=== PATIENT | female | born 1955 | race Caucasian/White ===

== ENCOUNTER → 2018-02-03 08:42 | Outpatient (CLI) | payer BC, SELFPAY ==
[2018-02-03 09:45] LABS: Add Manual Diff / Slide Review NO; Eosinophils Percent Auto 1.3 % (2-4); Hematocrit 39.7 % (36-46); Hemoglobin 13.3 g/dL (12.0-16.0); Lymphocytes Percent Auto 24.5 % (25-40); Mean Corpuscular HGB Conc 33.5 % (30-36); Mean Corpuscular Hemoglobin 30.1 PG (26-34); Mean Corpuscular Volume 89.7 fL (80-100); Neutrophils Absolute Auto 4400 /uL (3000-5900); Neutrophils Percent Auto 67.2 % (50-75); Platelet Count 287 X10^3/uL (150-400); Red Blood Cell Count 4.42 X10^6/uL (4.0-5.2); Red Cell Distribution Width 11.8 % (11.6-14.8); White Blood Cell Count 6.5 X10^3/uL (4.5-11.0)
[2018-02-03 10:20] LABS: Alanine Aminotransferase 33 IU/L (9-52); Albumin 4.4 g/dL (3.5-5.0); Albumin Globulin Ratio 1.3 (1.0-2.8); Alkaline Phosphatase 78 U/L (38-126); Aspartate Aminotransferase 33 IU/L (14-36); BUN Creatinine Ratio 31.7 (6-22); Bilirubin Total 0.6 mg/dL (0.2-1.3); Calcium 9.2 mg/dL (8.4-10.2); Cholesterol 173 mg/dL (140-199); Estimated Glomerular Filt Rate > 60.0 mL/min (>60); Globulin 3.5 g/dL (1.7-4.1); Glucose 88 mg/dL (80-110); HDL Cholesterol 52 mg/dL (40-60); HEMOLYSIS < 15 (0-50); LDL Cholesterol Calculated 110 mg/dL (<100); Potassium 3.9 mmol/L (3.4-5.1); Sodium 142 mmol/L (137-145); Total Protein 7.9 g/dL (6.3-8.2); Triglycerides 53 mg/dL (35-150)
[2018-02-03 10:52] LABS: TSH w/ Reflex to FT4 1.41 uIU/mL (0.47-4.68)
== END ==
PROVIDERS: Family Provider Family Medicine; PCP Family Medicine; Visit Provider Family Medicine
DX: Z13.220 Encounter for screening for lipoid disorders (principal); Z00.00 Encounter for general adult medical examination without abnormal findings
CPT/HCPCS: 36415; 80053; 80061; 84443; 85025

== ENCOUNTER → 2018-07-18 07:04 | Outpatient (CLI) | payer BC, SELFPAY | PROVIDERS: PCP Family Medicine; Visit Provider Family Medicine | DX: K21.9 Gastro-esophageal reflux disease without esophagitis (principal) | CPT/HCPCS: 83013 ==

== ENCOUNTER → 2018-12-07 09:10 | Outpatient (CLI) | payer BC, SELFPAY ==
--- NOTE | 2018-12-07 | DI.MG.S_ITS ---
BILATERAL DIGITAL SCREENING MAMMOGRAM 3D/2D WITH CAD: 12/07/2018 CLINICAL: Routine screening. Family history of breast cancer. Comparison is made to exams dated: 12/01/2017 mammogram, 11/18/2016 mammogram, 11/14/2015 mammogram, 10/30/2014 mammogram, and 10/29/2013 mammogram - [facility]. The tissue of both breasts is extremely dense, which lowers the sensitivity of mammography. Current study was also evaluated with a Computer Aided Detection (CAD) system. No significant masses, calcifications, or other findings are seen in either breast. There has been no significant interval change. IMPRESSION: NEGATIVE There is no mammographic evidence of malignancy. A 1 year screening mammogram is recommended. This exam was interpreted at Station ID: [id number]. NOTE: For mammograms, a report in lay terms will be sent to the patient. Approximately 15% of breast malignancies will not be visualized mammographically. In the management of a palpable breast mass, a negative mammogram must not discourage biopsy of a clinically suspicious lesion. Electronically Signed By: Russell agee/shaneka:12/07/2018 16:29:17 copy to: Chrissy Clements letter sent: Normal Exam ACR BI-RADS Category 1: Negative [id number]
== END ==
PROVIDERS: PCP Family Medicine; Visit Provider Family Medicine
DX: Z12.31 Encounter for screening mammogram for malignant neoplasm of breast (principal); Z80.3 Family history of malignant neoplasm of breast
CPT/HCPCS: 77063; 77067

== ENCOUNTER → 2019-06-19 15:49 | Outpatient (CLI) | payer BC, SELFPAY | PROVIDERS: PCP Family Medicine | DX: Z23 Encounter for immunization (principal) | CPT/HCPCS: 90471; 90686 ==

== ENCOUNTER 2019-07-24 09:43 | Day surgery (SDC) | payer BC, SELFPAY ==
[2019-07-24 10:04] VITALS: BP 134/86; PULSE 78; RESP 14; TEMP 36.2; O2SAT 100; BMI 23.8
[2019-07-24] MEDS: SODIUM CHLORIDE 0.9% 1,000 ML 200 ML IV (10:20)
--- NOTE | 2019-07-24 10:53 | PM.HP.1 ---
History of Present Illness History of Present Illness Date Patient Seen: 07/24/19 Time Patient Seen: 10:53 Chief complaint: [id number] Narrative: The patient is woman here for screening colonoscopy. No history of polyps. Last exam was over 10 years ago. Patient History Medical History Acid reflux (Resolved) Arthritis (Chronic) CTS (carpal tunnel syndrome) (Chronic) Lumbar spine pain (Chronic) Right lumbar radiculopathy (Chronic) Surgical History Status post arthroscopy (Resolved 03/2015) Status post dilation and curettage (Resolved 10/2011) Status post laminectomy (Resolved 2006) Status post laminectomy (Resolved 11/2013) Family & Social History Social History: household members spouse Tobacco & Substance use: Smoking Status Never smoker Meds Home Medications and Allergies Home Medications Medication Instructions Recorded Confirmed Type ASPIRIN (#ASPIR 81) 81 mg PO EVERY OTHER DAY #0 09/30/11 07/24/19 History CA PANTOTHENATE/FOLIC ACID/VIT 1 tab PO Q DAY #0 09/30/11 07/24/19 History (MULTIVITAMIN) [VITAMIN C] 500 mg PO Q DAY #0 10/13/11 07/24/19 History VITAMIN E (#E-400) 400 iu PO Q DAY #0 10/29/11 07/24/19 History Dimethyl Sulfone (#MSM) 2,000 mg PO BID #0 12/25/12 07/24/19 History calcium carb,cit 300 mg-D3 200 1 tab PO DAILY tab 02/16/18 07/24/19 History [id number] 13.5 mg tablet vitamin B complex 1 tab PO DAILY 02/16/18 07/24/19 History celecoxib 200 mg capsule 200 mg PO PRN PRN #90 cap 05/24/18 07/24/19 Rx omeprazole 20 mg capsule,delayed 20 mg PO DAILY #90 cap 08/16/18 07/24/19 Rx release medroxyprogesterone 2.5 mg tablet 2.5 mg PO QDAY #90 tab 04/03/19 07/24/19 Rx fluticasone propionate 50 1 spray NASAL DAILY 06/21/19 07/24/19 History mcg/actuation nasal spray,suspension estradiol 1 vaginalrin VAGINAL [id number] #1 07/24/19 Rx each Allergies Allergy/AdvReac Type Severity Reaction Status Date / Time No Known Drug Allergies Allergy Verified 06/21/19 15:13 Review of Systems Review of Systems ROS Unobtainable: All systems reviewed & are unremarkable except as noted in HPI and below Exam Vital Signs (past 8 hours): - 07/24/19 10:04 Temperature 97.1 F L Pulse Rate 78 Respiratory Rate 14 Blood Pressure 134/86 Pulse Oximetry 100 Oxygen Delivery Method Room Air Narrative Exam Narrative: Pleasant cooperative patient no apparent distress. Lungs are clear to auscultation. No rales or rhonchi. Heart regular rate and rhythm no murmur gallop. Abdomen is soft nontender without mass. No obvious hernias. Patient is alert and oriented x3. Assessment & Plan Assessment & Plan narrative: The patient for a screening colonoscopy. I have discussed the procedure with them. Risks of bleeding, perforation which would necessitate major operation, failure to find remove all lesions, the potential tattoo were all discussed. All questions were answered. They wished to proceed. Patient does not desire sedation. She is willing to accept it however if the procedure becomes too uncomfortable for me to proceed. She will tell me if she reaches that point.
--- NOTE | 2019-07-24 10:56 | PM.PREOP ---
Pre-operative Note Interval Note History & Physical reviewed/Exam performed by Physician: Yes Changes to H&P: No ASA Class (for procedural sedation): I
--- NOTE | 2019-07-24 10:56 | SUR.OPER ---
PATIENT REQUESTED NO SEDATION
--- NOTE | 2019-07-24 11:11 | SUR.OPER ---
TO;ERATED WELL
--- NOTE | 2019-07-24 11:24 | PM.OP.ENDO ---
Operative Date/Time/Diagnoses Date of procedure: 07/24/19 Time of procedure: 11:24 Pre-op diagnosis: Screening exam. Last exam 10 years ago. Post-op diagnosis: same (Internal hemorrhoids) Procedure & Clinicians Study performed: Colonoscopy Same procedure as scheduled: Yes Indications: Screening Surgeon: Jack Joseph Procedure Notes SCOAP/Timeout: Performed Procedure in detail: The patient was placed in the left lateral decubitus position and underwent IV sedation directed by the surgeon consisting of fentanyl and Versed. Digital exam was[]. The scope was inserted and advanced through the rectum into the sigmoid, descending, transverse colon to the hepatic flexure. At this point the steering mechanism on the scope snapped and the scope had to be withdrawn as I could not hear it properly to complete the exam. There was no loss of any part of the instrument to the patient. The steering mechanism is all internal in the scope. The scope was withdrawn. The situation was explained to the patient and we obtained another scope. The scope was reinserted fairly quickly to that point. A stiffener was then required in order to make our way around the hepatic flexure and into the cecum. The cecum was identified by the ileocecal valve and the appendiceal opening. The scope was gradually brought out. No Polyps were found. The scope ultimately was retroflexed in the rectum. The appearance was remarkable for internal hemorrhoids without ulceration. The scope was removed and the patient tolerated the procedure well. The prep was very good. Scope withdrawal time: 5 minutes Sedation minutes: 0 (Patient declined sedation) Findings: internal hemorrhoids Specimen(s): none sent Complications: none Post-procedure Recommendations: Colonscopy in 10 years Follow up: as needed Disposition: same day surgery
[2019-07-24 11:25] VITALS: BP 122/79; PULSE 80; RESP 16; TEMP 36.3; O2SAT 100
== END 2019-07-24 11:47 | disposition home or self-care (01) ==
PROVIDERS: PCP Family Medicine; Visit Provider Specialist
PROC: 0DJD8ZZ Inspection of Lower Intestinal Tract, Via Natural or Artificial Opening Endoscopic (ICD-10-PCS; CPT 45378; principal; 2019-07-24 10:45)
DX: Z12.11 Encounter for screening for malignant neoplasm of colon (principal)
CPT/HCPCS: 45378

== ENCOUNTER 2019-07-24 17:23 | Emergency (ER) | payer BC, SELFPAY ==
[2019-07-24 17:41] VITALS: BP 140/91; PULSE 81; RESP 16; TEMP 36.2; O2SAT 98; BMI 24.3
[2019-07-24 18:04] LABS: Bacteria Urine None Seen
[2019-07-24 18:25] LABS: RBC Urine 5-10/HPF (0-5/HPF); Squamous Epithelial Cell Urine 1-5 /HPF (0-5/HPF); WBC Urine 1-5/HPF (0-5/HPF)
[2019-07-24 18:26] LABS: Calcium Oxalate Crystals Urine Few; Culture Indicated Urine Cult Not Indicated; Mucus Urine 1+ (Negative)
[2019-07-24 18:42] LABS: Add Manual Diff / Slide Review NO; Basophils Absolute Auto 100 /uL (0-100); Basophils Percent Auto 0.6 % (0-2); Eosinophils Absolute Auto 0 /uL (0-450); Eosinophils Percent Auto 0.5 % (2-4); Hematocrit 39.6 % (36-46); Hemoglobin 13.3 g/dL (12.0-16.0); Lymphocytes Absolute Auto 1000 /uL (1100-4500); Lymphocytes Percent Auto 10.7 % (25-40); Mean Corpuscular HGB Conc 33.6 % (30-36); Mean Corpuscular Hemoglobin 30.4 PG (26-34); Mean Corpuscular Volume 90.4 fL (80-100); Monocytes Absolute Auto 500 /uL (0-900); Monocytes Percent Auto 4.9 % (3-14); Neutrophils Absolute Auto 7900 /uL (1500-7000); Neutrophils Percent Auto 83.3 % (50-75); Platelet Count 257 X10^3/uL (150-400); Red Blood Cell Count 4.38 X10^6/uL (4.0-5.2); Red Cell Distribution Width 12.1 % (11.6-14.8); White Blood Cell Count 9.5 X10^3/uL (4.5-11.0)
--- NOTE | 2019-07-24 18:43 | ED_ITS ---
HPI - Abdominal Pain <Teresa Busby PA-C - Last Filed: 07/24/19 21:15> General Chief Complaint: Abdominal Pain Stated Complaint: lt kidney pain Time Seen by Provider: 07/24/19 18:36 Source: patient Mode of arrival: Ambulatory Limitations: no limitations History of Present Illness HPI narrative: This 64-year-old female comes to ED secondary to left flank pain. She states that she initially had some left flank pain a couple of days ago that resolved on its own and was not severe. She had a colonoscopy this morning with no problems, went out to eat after. About 2.5 hours ago, she had abrupt onset of flank pain, which seems to radiate to a wrap around her back. She denies any exacerbating or alleviating features for pain, states it waxes and wanes on its own, severe when it is bad. She denies any nausea or vomiting. She denies any fever, chills, sweats. She denies any urinary symptoms. she denies any recent bowel habit changes aside from colonoscopy prep induced, no blood in the stools. She denies any chest pain or dyspnea. She denies any rash. No known exposures or recent illness. No new or changed medications. Related Data Home Medications Medication Instructions Recorded Confirmed ASPIRIN (#ASPIR 81) 81 mg PO EVERY OTHER DAY #0 09/30/11 07/24/19 CA PANTOTHENATE/FOLIC ACID/VIT 1 tab PO Q DAY #0 09/30/11 07/24/19 (MULTIVITAMIN) [VITAMIN C] 500 mg PO Q DAY #0 10/13/11 07/24/19 VITAMIN E (#E-400) 400 iu PO Q DAY #0 10/29/11 07/24/19 Dimethyl Sulfone (#MSM) 2,000 mg PO BID #0 12/25/12 07/24/19 calcium carb,cit 300 mg-D3 200 1 tab PO DAILY tab 02/16/18 07/24/19 [id number] 13.5 mg tablet vitamin B complex 1 tab PO DAILY 02/16/18 07/24/19 fluticasone propionate 50 1 spray NASAL DAILY 06/21/19 07/24/19 mcg/actuation nasal spray,suspension Previous Rx's Medication Instructions Recorded celecoxib 200 mg capsule 200 mg PO PRN PRN #90 cap 05/24/18 omeprazole 20 mg capsule,delayed 20 mg PO DAILY #90 cap 08/16/18 release medroxyprogesterone 2.5 mg tablet 2.5 mg PO QDAY #90 tab 04/03/19 estradiol 1 vaginalrin VAGINAL [id number] #1 07/24/19 each oxycodone-acetaminophen 1 tab PO Q4-6H PRN #8 tab 07/24/19 tamsulosin 0.4 mg PO BEDTIME #5 cap 07/24/19 Allergies Allergy/AdvReac Type Severity Reaction Status Date / Time No Known Drug Allergies Allergy Verified 06/21/19 15:13 Review of Systems <Teresa Busby PA-C - Last Filed: 07/24/19 21:15> Review of Systems ROS Unobtainable: All systems reviewed & are unremarkable except as noted in HPI and below Patient History <Teresa Busby PA-C - Last Filed: 07/24/19 21:15> Medical History Acid reflux (Resolved) Arthritis (Chronic) CTS (carpal tunnel syndrome) (Chronic) Lumbar spine pain (Chronic) Right lumbar radiculopathy (Chronic) Surgical History Status post arthroscopy (Resolved 03/2015) Status post dilation and curettage (Resolved 10/2011) Status post laminectomy (Resolved 2006) Status post laminectomy (Resolved 11/2013) Social History household members: spouse Smoking Status: Never smoker Substance Use Type: does not use Exam <Teresa Busby PA-C - Last Filed: 07/24/19 21:15> Narrative Exam Narrative: GENERAL APPEARANCE: Patient sitting comfortably, in no distress. HEENT: PERRL, EOMI, no scleral icterus, normal oropharynx NECK: Supple, no masses LUNGS: Clear to auscultation bilaterally. HEART: Rate and rhythm regular, normal S1 and S2, no S3 or S4. ABDOMEN: Soft, nondistended, bowel sounds present x 4 quadrants, no masses palpable, no hepatosplenomegaly. exquisite left CVAT, moderate left lateral upper quadrant tenderness. no guarding or rebound. No tenderness elsewhere. EXTREMITIES: No edema, no calf tenderness DERMATOLOGIC: No jaundice or exanthem NEUROLOGIC: Alert and oriented with normal speech and coordination Initial Vital Signs Initial Vital Signs: Vital Signs Temperature 97.2 F L 07/24/19 17:41 Pulse Rate 81 07/24/19 17:41 Respiratory Rate 16 07/24/19 17:41 Blood Pressure 140/91 H 07/24/19 17:41 Pulse Oximetry 98 07/24/19 17:41 <Vu Vale MD - Last Filed: 07/25/19 04:31> Initial Vital Signs Initial Vital Signs: Vital Signs Temperature 97.2 F L 07/24/19 17:41 Pulse Rate 81 07/24/19 17:41 Respiratory Rate 16 07/24/19 17:41 Blood Pressure 140/91 H 07/24/19 17:41 Pulse Oximetry 98 07/24/19 17:41 Course <Teresa Busby PA-C - Last Filed: 07/24/19 21:15> Course Additional Information: Patient stated pain was not particularly severe while here and might take Tylenol at home. She does take Percocet as needed for arthritis pain and was given a prescription for a little bit of this as her home prescription is . She will take this as needed as well as her Celebrex and Flomax and full follow up with her PCP this week. She agreed to return if any acutely worsening symptoms in the interim Orders Ordered: ED Orders 07/24/19 17:47 Urine Microscopic Stat 07/24/19 18:34 Complete Blood Count AUTO DIFF Stat Comprehensive Metabolic Panel Stat Lipase Stat Partial Thromboplastin Time Stat Prothrombin Time INR Stat 07/24/19 18:55 CT kidney ureter bladder (KUB) Stat Vital Signs Vital signs: Vital Signs - 8 hr 07/24/19 20:35 Pulse Rate 78 Respiratory Rate 16 Blood Pressure 122/72 Pulse Oximetry 97 <Vu Vale MD - Last Filed: 07/25/19 04:31> Orders Ordered: ED Orders 07/24/19 17:47 Urine Microscopic Stat 07/24/19 18:34 Complete Blood Count AUTO DIFF Stat Comprehensive Metabolic Panel Stat Lipase Stat Partial Thromboplastin Time Stat Prothrombin Time INR Stat 07/24/19 18:55 CT kidney ureter bladder (KUB) Stat Vital Signs Vital signs: Vital Signs - 8 hr 07/24/19 20:35 Pulse Rate 78 Respiratory Rate 16 Blood Pressure 122/72 Pulse Oximetry 97 MDM - Abdominal Pain <Teresa Busby PA-C - Last Filed: 07/24/19 21:15> Lab Data Attestation: I reviewed the patient's lab results. Result diagrams: 07/24/19 18:34 07/24/19 18:34 Labs: Lab Results 07/24/19 07/24/19 07/24/19 Range/Units 17:47 18:34 18:34 WBC 9.5 (4.5-11.0) X10^3/uL RBC 4.38 (4.0-5.2) X10^6/uL Hgb 13.3 (12.0-16.0) g/dL Hct 39.6 (36-46) % MCV 90.4 (80-100) fL MCH 30.4 (26-34) PG MCHC 33.6 (30-36) % RDW 12.1 (11.6-14.8) % Plt Count 257 (150-400) X10^3/uL Neut % (Auto) 83.3 H (50-75) % Lymph % (Auto) 10.7 L (25-40) % [place] % (Auto) 4.9 (3-14) % Eos % (Auto) 0.5 L (2-4) % Baso % (Auto) 0.6 (0-2) % Neut # (Auto) 7900 H (6108-4071) /uL Lymph # (Auto) 1000 L (2358-4886) /uL [place] # (Auto) 500 (0-900) /uL Eos # (Auto) 0 (0-450) /uL Baso # (Auto) 100 (0-100) /uL PT 11.5 (10.1-12.7) SECONDS INR 1.0 (0.9-1.3) APTT 28 (26.4-36.2) SECONDS Sodium (137-145) mmol/L Potassium (3.4-5.1) mmol/L Chloride (98-107) mmol/L Carbon Dioxide (22-32) mmol/L BUN (7-17) mg/dL Creatinine (0.52-1.04) mg/dL Estimated GFR (>60) mL/min BUN/Creatinine Ratio (6-22) Glucose (80-110) mg/dL Calcium (8.4-10.2) mg/dL Total Bilirubin (0.2-1.3) mg/dL AST (14-36) IU/L ALT (<35) IU/L Alkaline Phosphatase (38-126) U/L Total Protein (6.3-8.2) g/dL Albumin (3.5-5.0) g/dL Globulin (1.7-4.1) g/dL Albumin/Globulin Ratio (1.0-2.8) Lipase (23-300) U/L Urine RBC 5-10/hpf H (0-5/HPF) Urine WBC 1-5/hpf (0-5/HPF) Ur Squamous Epith Cells 1-5 /hpf (0-5/HPF) Calcium Oxalate Crystal Few H Urine Bacteria None seen (None) Urine Mucus 1+ H (Negative) Ur Culture Indicated? Cult not indicated 07/24/19 Range/Units 18:34 WBC (4.5-11.0) X10^3/uL RBC (4.0-5.2) X10^6/uL Hgb (12.0-16.0) g/dL Hct (36-46) % MCV (80-100) fL MCH (26-34) PG MCHC (30-36) % RDW (11.6-14.8) % Plt Count (150-400) X10^3/uL Neut % (Auto) (50-75) % Lymph % (Auto) (25-40) % [place] % (Auto) (3-14) % Eos % (Auto) (2-4) % Baso % (Auto) (0-2) % Neut # (Auto) (9633-8019) /uL Lymph # (Auto) (1762-9611) /uL [place] # (Auto) (0-900) /uL Eos # (Auto) (0-450) /uL Baso # (Auto) (0-100) /uL PT (10.1-12.7) SECONDS INR (0.9-1.3) APTT (26.4-36.2) SECONDS Sodium 140 (137-145) mmol/L Potassium 3.7 (3.4-5.1) mmol/L Chloride 105 (98-107) mmol/L Carbon Dioxide 26 (22-32) mmol/L BUN 21 H (7-17) mg/dL Creatinine 0.80 (0.52-1.04) mg/dL Estimated GFR > 60.0 (>60) mL/min BUN/Creatinine Ratio 26.3 H (6-22) Glucose 108 (80-110) mg/dL Calcium 9.4 (8.4-10.2) mg/dL Total Bilirubin 0.8 (0.2-1.3) mg/dL AST 32 (14-36) IU/L ALT 22 (<35) IU/L Alkaline Phosphatase 69 (38-126) U/L Total Protein 7.9 (6.3-8.2) g/dL Albumin 4.7 (3.5-5.0) g/dL Globulin 3.2 (1.7-4.1) g/dL Albumin/Globulin Ratio 1.5 (1.0-2.8) Lipase 60 (23-300) U/L Urine RBC (0-5/HPF) Urine WBC (0-5/HPF) Ur Squamous Epith Cells (0-5/HPF) Calcium Oxalate Crystal Urine Bacteria (None) Urine Mucus (Negative) Ur Culture Indicated? Point of care testing: Urine Dip Bedside Urine Glucose Negative Bedside Urine Bilirubin - Negative Bedside Urine Ketone - Negative Urine Specific [place] 1.030 Bedside Urine Occult Blood + Bedside Urine pH 6.0 Bedside Urine Protein +/- 15 Bedside Urine Urobilinogen - Negative Bedside Urine Nitrite - Negative Bedside Urine Leukocytes - Negative Esterase <Vu Vale MD - Last Filed: 07/25/19 04:31> Lab Data Labs: Lab Results 07/24/19 07/24/19 07/24/19 Range/Units 17:47 18:34 18:34 WBC 9.5 (4.5-11.0) X10^3/uL RBC 4.38 (4.0-5.2) X10^6/uL Hgb 13.3 (12.0-16.0) g/dL Hct 39.6 (36-46) % MCV 90.4 (80-100) fL MCH 30.4 (26-34) PG MCHC 33.6 (30-36) % RDW 12.1 (11.6-14.8) % Plt Count 257 (150-400) X10^3/uL Neut % (Auto) 83.3 H (50-75) % Lymph % (Auto) 10.7 L (25-40) % [place] % (Auto) 4.9 (3-14) % Eos % (Auto) 0.5 L (2-4) % Baso % (Auto) 0.6 (0-2) % Neut # (Auto) 7900 H (6732-6486) /uL Lymph # (Auto) 1000 L (9332-4692) /uL [place] # (Auto) 500 (0-900) /uL Eos # (Auto) 0 (0-450) /uL Baso # (Auto) 100 (0-100) /uL PT 11.5 (10.1-12.7) SECONDS INR 1.0 (0.9-1.3) APTT 28 (26.4-36.2) SECONDS Sodium (137-145) mmol/L Potassium (3.4-5.1) mmol/L Chloride (98-107) mmol/L Carbon Dioxide (22-32) mmol/L BUN (7-17) mg/dL Creatinine (0.52-1.04) mg/dL Estimated GFR (>60) mL/min BUN/Creatinine Ratio (6-22) Glucose (80-110) mg/dL Calcium (8.4-10.2) mg/dL Total Bilirubin (0.2-1.3) mg/dL AST (14-36) IU/L ALT (<35) IU/L Alkaline Phosphatase (38-126) U/L Total Protein (6.3-8.2) g/dL Albumin (3.5-5.0) g/dL Globulin (1.7-4.1) g/dL Albumin/Globulin Ratio (1.0-2.8) Lipase (23-300) U/L Urine RBC 5-10/hpf H (0-5/HPF) Urine WBC 1-5/hpf (0-5/HPF) Ur Squamous Epith Cells 1-5 /hpf (0-5/HPF) Calcium Oxalate Crystal Few H Urine Bacteria None seen (None) Urine Mucus 1+ H (Negative) Ur Culture Indicated? Cult not indicated 07/24/19 Range/Units 18:34 WBC (4.5-11.0) X10^3/uL RBC (4.0-5.2) X10^6/uL Hgb (12.0-16.0) g/dL Hct (36-46) % MCV (80-100) fL MCH (26-34) PG MCHC (30-36) % RDW (11.6-14.8) % Plt Count (150-400) X10^3/uL Neut % (Auto) (50-75) % Lymph % (Auto) (25-40) % [place] % (Auto) (3-14) % Eos % (Auto) (2-4) % Baso % (Auto) (0-2) % Neut # (Auto) (8140-6726) /uL Lymph # (Auto) (6947-2992) /uL [place] # (Auto) (0-900) /uL Eos # (Auto) (0-450) /uL Baso # (Auto) (0-100) /uL PT (10.1-12.7) SECONDS INR (0.9-1.3) APTT (26.4-36.2) SECONDS Sodium 140 (137-145) mmol/L Potassium 3.7 (3.4-5.1) mmol/L Chloride 105 (98-107) mmol/L Carbon Dioxide 26 (22-32) mmol/L BUN 21 H (7-17) mg/dL Creatinine 0.80 (0.52-1.04) mg/dL Estimated GFR > 60.0 (>60) mL/min BUN/Creatinine Ratio 26.3 H (6-22) Glucose 108 (80-110) mg/dL Calcium 9.4 (8.4-10.2) mg/dL Total Bilirubin 0.8 (0.2-1.3) mg/dL AST 32 (14-36) IU/L ALT 22 (<35) IU/L Alkaline Phosphatase 69 (38-126) U/L Total Protein 7.9 (6.3-8.2) g/dL Albumin 4.7 (3.5-5.0) g/dL Globulin 3.2 (1.7-4.1) g/dL Albumin/Globulin Ratio 1.5 (1.0-2.8) Lipase 60 (23-300) U/L Urine RBC (0-5/HPF) Urine WBC (0-5/HPF) Ur Squamous Epith Cells (0-5/HPF) Calcium Oxalate Crystal Urine Bacteria (None) Urine Mucus (Negative) Ur Culture Indicated? Point of care testing: Urine Dip Bedside Urine Glucose Negative Bedside Urine Bilirubin - Negative Bedside Urine Ketone - Negative Urine Specific [place] 1.030 Bedside Urine Occult Blood + Bedside Urine pH 6.0 Bedside Urine Protein +/- 15 Bedside Urine Urobilinogen - Negative Bedside Urine Nitrite - Negative Bedside Urine Leukocytes - Negative Esterase Discharge Plan Departure Patient Disposition: Home Clinical Impression: Kidney stone on left side Discharge Date/Time: 07/24/19 20:36 Activity Restrictions/Additional Instructions: Please take your Celebrex tonight when you get home and continue once daily until this kidney stone passes. Also start the Flomax (tamsulosin) this evening and take once daily. You can use the Percocet as needed to help with the pain, remember not to drive as it can make you sleepy. Please see your PCP for rechec k in the next couple of days as you may need repeat testing or referral if the stone is not passing or you are not feeling better. As we talked about, you should return to the ED if you have any acutely worsening symptoms or new symptoms such as fever, inability to urinate, or vomiting and inability to keep down your medicines. Prescriptions: New tamsulosin 0.4 mg capsule 0.4 mg PO BEDTIME Qty: 5 RF: 0 oxycodone-acetaminophen 5-325 mg tablet 1 tab PO Q4-6H PRN (Reason: acute kidney stone pain) Qty: 8 RF: 0 No Action CA PANTOTHENATE/FOLIC ACID/VIT (MULTIVITAMIN) 1 tab PO Q DAY Qty: 0 RF: 0 ASPIRIN (#ASPIR 81) 81 mg PO EVERY OTHER DAY Qty: 0 RF: 0 [VITAMIN C] 500 mg PO Q DAY Qty: 0 RF: 0 VITAMIN E (#E-400) 400 iu PO Q DAY Qty: 0 RF: 0 Dimethyl Sulfone (#MSM) 2,000 mg PO BID Qty: 0 RF: 0 medroxyprogesterone 2.5 mg tablet 2.5 mg PO QDAY Qty: 90 RF: 3 estradiol [Estring] 2 mg (7.5 mcg /24 hour) ring 1 vaginalrin vaginal [id number] Qty: 1 RF: 3 celecoxib [Celebrex] 200 mg capsule 200 mg PO PRN PRN (Reason: pain) Qty: 90 RF: 3 fluticasone propionate 50 mcg/actuation spray,suspension 1 spray NASAL DAILY RF: 0 vitamin B complex [B Complex-Vitamin B12] tablet 1 tab PO DAILY RF: 0 calcium crb,mgx-[id number]-genis [Citracal + Bone Density] 300-200-13.5 mg-unit-mg tablet 1 tab PO DAILY RF: 0 omeprazole 20 mg capsule,delayed release(DR/EC) 20 mg PO DAILY Qty: 90 RF: 3 Referrals: Tory Short DO [Primary Care Provider] -
[2019-07-24 18:49] LABS: Prothrombin Time 11.5 SECONDS (10.1-12.7)
[2019-07-24 18:52] LABS: PTT Partial Thromboplastin Tim 28 SECONDS (26.4-36.2)
[2019-07-24 18:55] LABS: Alanine Aminotransferase 22 IU/L (<35); Albumin 4.7 g/dL (3.5-5.0); Albumin Globulin Ratio 1.5 (1.0-2.8); Alkaline Phosphatase 69 U/L (38-126); Aspartate Aminotransferase 32 IU/L (14-36); BUN Creatinine Ratio 26.3 (6-22); Bilirubin Total 0.8 mg/dL (0.2-1.3); Blood Urea Nitrogen 21 mg/dL (7-17); Calcium 9.4 mg/dL (8.4-10.2); Carbon Dioxide 26 mmol/L (22-32); Chloride 105 mmol/L (98-107); Estimated Glomerular Filt Rate > 60.0 mL/min (>60); Globulin 3.2 g/dL (1.7-4.1); Glucose 108 mg/dL (80-110); HEMOLYSIS < 15 (0-50); Lipase 60 U/L (23-300); Potassium 3.7 mmol/L (3.4-5.1); Sodium 140 mmol/L (137-145); Total Protein 7.9 g/dL (6.3-8.2)
--- NOTE | 2019-07-24 18:55 | DI.CT.S_ITS ---
PROCEDURE: CT KIDNEY URETER BLADDER (KUB) INDICATIONS: L. flank pain TECHNIQUE: Noncontrast 5 mm thick sections acquired from the diaphragms to the symphysis. 5 mm thick coronal and sagittal reformats were then performed. For radiation dose reduction, the following was used: automated exposure control, adjustment of mA and/or kV according to patient size. COMPARISON: None. FINDINGS: Image quality: Excellent. Lung bases: Lung bases are clear. Heart size is normal. Urinary system: Both kidneys are normal in size. A 5 mm stone is noted in the proximal left ureter causing moderate left-sided hydro-nephrosis. No right-sided renal stones or hydronephrosis. Bladder wall thickness is normal; no calcified bladder stones. Other solid organs: Liver is normal in size. Gallbladder contains multiple small gallstones.. Pancreas is normal in contours. Spleen is normal in size. No adrenal nodules. Peritoneum and bowel: Unenhanced bowel loops demonstrate normal wall thickness and caliber. No free fluid or air. The visualized appendix is normal. Nodes and vessels: No retroperitoneal or mesenteric adenopathy by size criteria. Aorta and inferior vena cava are normal in caliber. Abdominal wall: No ventral hernias. Pelvis: No free pelvic fluid. No inguinal hernias or adenopathy. Presence of pessary ring noted in the lower pelvis. Bones: No suspicious bony lesions. No vertebral body compression fractures. Spine degenerative disc disease and facet arthropathy. IMPRESSION: 1. 5 mm stone proximal left ureter causing moderate left-sided hydronephrosis. 2. Cholelithiasis. Dictated by: Jeanette Beal MD, PhD on 07/24/2019 at 20:04 Approved by: Jeanette Beal MD, PhD on 07/24/2019 at 20:08
[2019-07-24 19:07] VITALS: BP 121/75; PULSE 73; RESP 14; O2SAT 99
[2019-07-24 19:45] VITALS: BP 124/81; PULSE 78; RESP 12; O2SAT 98
[2019-07-24 20:30] VITALS: BP 124/74; PULSE 77; O2SAT 97
[2019-07-24 20:35] VITALS: BP 122/72; PULSE 78; RESP 16; O2SAT 97
== END 2019-07-24 20:36 | disposition home or self-care (01) ==
PROVIDERS: Emergency Medicine; Emergency Provider Internal Medicine; Family Provider Family Medicine; PCP Family Medicine
DX: N20.0 Calculus of kidney (principal)
CPT/HCPCS: 36415; 74176; 80053; 81003; 81015; 83690; 85025; 85610; 85730; 99283; 99284

== ENCOUNTER → 2019-07-30 09:32 | Outpatient (CLI) | payer BC, SELFPAY ==
--- NOTE | 2019-07-30 09:33 | DI.US.S_ITS ---
PROCEDURE: US RENAL COMPLETE INDICATIONS: KIDNEY STONE, HYDRONEPHROSIS TECHNIQUE: Real-time scanning was performed of the kidneys and bladder, with image documentation. COMPARISON: [facility], CT, CT KIDNEY URETER BLADDER (KUB), 07/24/2019, 19:34. FINDINGS: Kidneys: Kidneys are normal in size. Right kidney measures 11.2 cm long; left kidney measures 12.1 cm long. Right renal cortical thickness is 1.6 cm; left renal cortical thickness is 1.6 cm. Renal cortical echotexture is normal. No hydronephrosis or nephrolithiasis. No suspicious solid mass lesions. Bladder: Pre-void bladder volume is 833 mL. Post-void residual is 0 mL. Pre-void images demonstrate no intraluminal masses or stones. On pre-void images, bilateral ureteral jets are noted with color Doppler interrogation. (Of note, ureteral jets may not be detectable in up to 25% of cases due to insufficient differences in specific gravity between ureteral and bladder urine). Miscellaneous: No free pelvic fluid. IMPRESSION: Resolved left hydronephrosis. Dictated by: Marc Jolley [facility] Interpreted: Milad Lynch MD on 07/30/2019 at 10:27 Approved by: Milad Lynch M.D. on 07/30/2019 at 12:17
== END ==
PROVIDERS: PCP Family Medicine; Visit Provider Family Medicine
DX: N13.2 Hydronephrosis with renal and ureteral calculous obstruction (principal)
CPT/HCPCS: 76770

== ENCOUNTER 2019-11-27 08:56 | Day surgery (SDC) | payer BC, SELFPAY ==
[2019-11-27 09:56] VITALS: BP 137/81; PULSE 84; RESP 17; TEMP 36.6; O2SAT 99; BMI 24.3
[2019-11-27] MEDS: PROPARACAINE 0.5% OPHTH SOL 2 DROPS EYE-OP (10:01)
[2019-11-27] MEDS: CATARACT EYE COMPOUND (10 DROPS/SYRINGE) 3 DROPS EYE-OP (10:02)
--- NOTE | 2019-11-27 11:12 | PM.PREOP ---
Pre-operative Note Interval Note History & Physical reviewed/Exam performed by Physician: Yes Changes to H&P: No
--- NOTE | 2019-11-27 11:12 | PM.OP.1 ---
Operative Date/Time/Diagnoses Pre-op diagnosis: Nuclear Cataract Left eye Post-op diagnosis: same Procedure & Clinicians Same procedure as scheduled: Yes Surgeon: Petey Crooks Anesthesia Type: MAC +/- and Sedation Operative Notes Procedure in detail: Patient brought to the operating suite. Tetracaine drops placed in the left eye. The vertical and horizontal meridiands were marked with marking pen. Patient was prepped and draped in sterile manner. Wire lid speculum was placed in the eye. The 110 degree meridian was marked with marking instrument. Betadine drops were placed on the eye. This was irrigated. Lidocaine jelly was placed on the eye. A paracentesis port was created with a side-port blade. 0.1 mL 1% preservative free lidocaine was injected into the anterior chamber. The anterior chamber was deepened with viscoelastic. 2.6 mm keratome was used to create a temporal clear corneal incision. Cystotome and Utrata forceps were used to create continuous tear capsulorrhexis. Balanced salt solution was used to hydro dissect the nucleus. The phacoemulsification handpiece was inserted and the nucleus was removed using the stop and chop technique. The irrigation aspiration handpiece was inserted and the remaining cortex was removed. Anterior chamber was deepened with viscoelastic. An Lloyd [id number] intraocular lens with a power of 20.5 was injected into the capsular bag. Irrigation aspiration handpiece was inserted and the remaining viscoelastic was removed. The lens was rotated to the 110 degree meridian. Incision was hydrated with balanced salt solution and found to be leak free with pressure with Weck-Hanane sponges. 0.1 mL Vigamox injected anterior chamber. 0.3 mL Kenalog 10 mg was injected subconjunctivally. Lid speculum was removed. The patient left the operating room in excellent condition. Complications: none Post-operative Condition: stable Disposition: same day surgery
[2019-11-27] MEDS: PHENYLEPHRINE/LIDOCAINE VIAL (OR) 0.2 ML EYE-OP (11:32)
[2019-11-27] MEDS: MOXIFLOXACIN INJ 5 MG/ML VIAL EYE-OP (11:32)
[2019-11-27] MEDS: LIDOCAINE JELLY 2% 5 ML 1 APPLIC TOP (11:33)
[2019-11-27] MEDS: TRIAMCINOLONE 50 MG/5 ML VIAL INJ (11:33)
[2019-11-27] MEDS: TETRACAINE 0.5% OPHTH DROPS 4 ML 2 DROPS EYE-OP (11:33)
[2019-11-27] MEDS: CHONDROIDTIN/SOD HYALURONATE 1.05 ML SYRINGE INTRAOCULA (11:33)
[2019-11-27] MEDS: BALANCED SALT IRRIG SOLN NO.2 500 ML, EPINEPHrine 1 MG IRR (11:34)
[2019-11-27 11:54] VITALS: BP 135/83; PULSE 77; RESP 16; TEMP 36.4; O2SAT 97
== END 2019-11-27 11:56 | disposition home or self-care (01) ==
PROVIDERS: PCP Family Medicine; Referring Provider Family Medicine; Visit Provider Ophthalmology
PROC: (CPT 66984; principal; 2019-11-27 10:45)
DX: H25.12 Age-related nuclear cataract, left eye (principal); K21.9 Gastro-esophageal reflux disease without esophagitis
CPT/HCPCS: 66984; J0171; J3301; V2787

== ENCOUNTER → 2019-12-14 11:13 | Outpatient (CLI) | payer BC, SELFPAY ==
[2019-12-14 12:52] LABS: Appearance Urine UA CLEAR; Bilirubin Urine UA NEGATIVE (NEGATIVE); Color Urine UA YELLOW; Glucose Urine UA NEGATIVE (Negative); Ketones Urine UA NEGATIVE (NEGATIVE); Leukocyte Esterase Urine UA NEGATIVE (NEGATIVE); Nitrite Urine UA NEGATIVE (Negative); Occult Blood Urine UA TRACE-INTACT (Negative); Protein Urine UA NEGATIVE (Negative); Specific Gravity Urine UA 1.025 (1.000-1.035); Urobilinogen Urine UA 0.2 E.U./dL (0.2)
[2019-12-14 13:04] LABS: Amorphous Sediment Urine 1+; RBC Urine 1-5/HPF (0-5/HPF); Squamous Epithelial Cell Urine 5-10 /HPF (0-5/HPF); WBC Urine 1-5/HPF (0-5/HPF)
[2019-12-14 13:05] LABS: Bacteria Urine Few (2-10); Culture Indicated Urine Specimen Cultured; Mucus Urine 1+ (Negative)
== END ==
PROVIDERS: PCP Family Medicine; Referring Provider Family Medicine; Visit Provider Family Medicine
DX: N13.2 Hydronephrosis with renal and ureteral calculous obstruction (principal); N20.0 Calculus of kidney
CPT/HCPCS: 81001; 87077; 87086

== ENCOUNTER → 2019-12-28 10:42 | Outpatient (CLI) | payer BC, SELFPAY ==
[2019-12-28 14:00] LABS: Appearance Urine UA CLEAR; Bilirubin Urine UA NEGATIVE (NEGATIVE); Color Urine UA YELLOW; Glucose Urine UA NEGATIVE (Negative); Ketones Urine UA NEGATIVE (NEGATIVE); Leukocyte Esterase Urine UA TRACE (NEGATIVE); Nitrite Urine UA NEGATIVE (Negative); Occult Blood Urine UA TRACE-INTACT (Negative); Protein Urine UA TRACE (Negative); Urobilinogen Urine UA 0.2 E.U./dL (0.2)
[2019-12-28 14:20] LABS: pH Urine UA 5.5 (4.5-8.0)
[2019-12-28 14:21] LABS: Bacteria Urine Many (>30); RBC Urine 0-1/HPF (0-5/HPF); Squamous Epithelial Cell Urine 1-5 /HPF (0-5/HPF); WBC Urine 0-1/HPF (0-5/HPF)
[2019-12-28 14:22] LABS: Culture Indicated Urine Specimen Cultured
== END ==
PROVIDERS: PCP Family Medicine; Visit Provider Family Medicine
DX: N39.0 Urinary tract infection, site not specified (principal)
CPT/HCPCS: 81001; 87077; 87086; 87186

== ENCOUNTER → 2019-12-31 13:09 | Outpatient (CLI) | payer BC, SELFPAY ==
--- NOTE | 2019-12-31 13:10 | DI.US.S_ITS ---
PROCEDURE: US RENAL COMPLETE INDICATIONS: RENAL STONES TECHNIQUE: Real-time scanning was performed of the kidneys and bladder, with image documentation. COMPARISON: [facility], , US RENAL COMPLETE, 07/30/2019, 9:54. FINDINGS: Kidneys: Kidneys are normal in size. Right kidney measures 10.9 cm long; left kidney measures 11.3 cm long. Right renal cortical thickness is 1.8 cm; left renal cortical thickness is 1.8 cm. Renal cortical echotexture is normal. No hydronephrosis or nephrolithiasis. No suspicious solid mass lesions. Bladder: Pre-void bladder volume is 186 mL. Post-void residual is zero mL. Pre-void images demonstrate no intraluminal masses or stones. On pre-void images, both of the ureteral jets are noted with color Doppler interrogation. (Of note, ureteral jets may not be detectable in up to 25% of cases due to insufficient differences in specific gravity between ureteral and bladder urine). Miscellaneous: No free pelvic fluid. IMPRESSION: Negative examination. No sonographic evidence of nephrolithiasis or urinary obstruction Dictated by: Milad Lynch M.D. on 12/31/2019 at 14:56 Approved by: Milad Lynch M.D. on 12/31/2019 at 14:57
== END ==
PROVIDERS: PCP Family Medicine; Referring Provider Family Medicine; Visit Provider Family Medicine
DX: N20.0 Calculus of kidney (principal)
CPT/HCPCS: 76770

== ENCOUNTER → 2020-01-16 09:53 | Outpatient (CLI) | payer BC, SELFPAY | PROVIDERS: PCP Family Medicine; Visit Provider Family Medicine | DX: N39.0 Urinary tract infection, site not specified (principal) | CPT/HCPCS: 87077; 87086 ==

== ENCOUNTER → 2020-01-31 10:07 | Outpatient (CLI) | payer BC, SELFPAY ==
--- NOTE | 2020-01-31 | DI.MG.S_ITS ---
BILATERAL DIGITAL SCREENING MAMMOGRAM 3D/2D WITH CAD: 01/31/2020 CLINICAL: Routine screening. Family history of breast cancer. Comparison is made to exams dated: 12/07/2018 mammogram, 12/01/2017 mammogram, and 11/18/2016 mammogram - [facility]. The tissue of both breasts is extremely dense, which lowers the sensitivity of mammography. Current study was also evaluated with a Computer Aided Detection (CAD) system. No significant masses, calcifications, or other findings are seen in either breast. There has been no significant interval change. IMPRESSION: NEGATIVE There is no mammographic evidence of malignancy. A 1 year screening mammogram is recommended. This exam was interpreted at Station ID: [id number]. NOTE: For mammograms, a report in lay terms will be sent to the patient. Approximately 15% of breast malignancies will not be visualized mammographically. In the management of a palpable breast mass, a negative mammogram must not discourage biopsy of a clinically suspicious lesion. Electronically Signed By: Tayler arellano/shaneka:01/31/2020 10:34:36 copy to: Chrissy Clements letter sent: Normal Exam ACR BI-RADS Category 1: Negative [id number]
== END ==
PROVIDERS: PCP Family Medicine; Referring Provider Family Medicine; Visit Provider Family Medicine
DX: Z12.31 Encounter for screening mammogram for malignant neoplasm of breast (principal); Z80.3 Family history of malignant neoplasm of breast
CPT/HCPCS: 77063; 77067

== ENCOUNTER → 2020-02-09 15:15 | Outpatient (CLI) | payer BC, SELFPAY ==
[2020-02-11 02:36] LABS: COVID19 Sendout Not Detected (Not Detect)
== END ==
PROVIDERS: PCP Family Medicine; Visit Provider Physician Assistant
DX: Z01.818 Encounter for other preprocedural examination (principal)
CPT/HCPCS: 87635

== ENCOUNTER 2020-02-12 10:17 | Day surgery (SDC) | payer BC, SELFPAY ==
[2020-02-12 10:34] VITALS: BP 134/77; PULSE 89; RESP 20; TEMP 36.6; O2SAT 98; BMI 24.3
[2020-02-12] MEDS: PROPARACAINE 0.5% OPHTH SOL 2 DROPS EYE-OP (10:35)
[2020-02-12] MEDS: CATARACT EYE COMPOUND (10 DROPS/SYRINGE) 3 DROPS EYE-OP (10:40)
--- NOTE | 2020-02-12 11:39 | PM.PREOP ---
Pre-operative Note Interval Note History & Physical reviewed/Exam performed by Physician: Yes Changes to H&P: No
--- NOTE | 2020-02-12 11:40 | PM.OP.1 ---
Operative Date/Time/Diagnoses Pre-op diagnosis: Nuclear cataract right eye Procedure & Clinicians Procedure: Cataract Surgery Same procedure as scheduled: Yes Surgeon: Petey Crooks Anesthesia Type: MAC +/- and Sedation Operative Notes Procedure in detail: Patient brought to the operating suite. Tetracaine drops placed in the right eye. The marking instrument was used to gabby the vertical and horizontal meridians. Patient was prepped and draped in sterile manner. Wire lid speculum was placed in the eye. The marking instrument was used to gabby the 15 degree meridian. Betadine drops were placed on the eye. This was irrigated. Lidocaine jelly was placed on the eye. A paracentesis port was created with a side-port blade. 0.1 mL 1% preservative free lidocaine was injected into the anterior chamber. The anterior chamber was deepened with viscoelastic. 2.6 mm keratome was used to create a temporal clear corneal incision. Cystotome and Utrata forceps were used to create continuous tear capsulorrhexis. Balanced salt solution was used to hydro dissect the nucleus. The phacoemulsification handpiece was inserted and the nucleus was removed using the stop and chop technique. The irrigation aspiration handpiece was inserted and the remaining cortex was removed. Anterior chamber was deepened with viscoelastic. An Lloyd [id number] intraocular lens with a power of 22.5 was injected into the capsular bag. The lens was rotated to the 15 degree meridian. Irrigation aspiration handpiece was inserted and the remaining viscoelastic was removed. Incision was hydrated with balanced salt solution and found to be leak free with pressure with Weck-Hanane sponges. 0.1 mL Vigamox injected anterior chamber. 0.3 mL Kenalog 10 mg was injected subconjunctivally. Lid speculum was removed. The patient left the operating room in excellent condition. Complications: none Post-operative Condition: stable Disposition: same day surgery
--- NOTE | 2020-02-12 11:51 | SUR.OPER ---
Supine on eye stretcher, head on extension cradle secured with tape. Arms tucked at sides with blanket. Pillow under knees.
[2020-02-12] MEDS: PHENYLEPHRINE/LIDOCAINE VIAL (OR) 0.2 ML EYE-OP (11:57)
[2020-02-12] MEDS: TRIAMCINOLONE 50 MG/5 ML VIAL INJ (11:58)
[2020-02-12] MEDS: MOXIFLOXACIN INJ 5 MG/ML VIAL EYE-OP (11:58)
[2020-02-12] MEDS: CHONDROIDTIN/SOD HYALURONATE 1.05 ML SYRINGE INTRAOCULA (11:59)
[2020-02-12] MEDS: TETRACAINE 0.5% OPHTH DROPS 4 ML 2 DROPS EYE-OP (11:59)
[2020-02-12] MEDS: BALANCED SALT IRRIG SOLN NO.2 500 ML, EPINEPHrine 1 MG IRR (11:59)
[2020-02-12] MEDS: LIDOCAINE JELLY 2% 5 ML 1 APPLIC TOP (11:59)
[2020-02-12 12:17] VITALS: BP 143/81; PULSE 75; RESP 18; TEMP 36.7; O2SAT 99
== END 2020-02-12 12:20 | disposition home or self-care (01) ==
PROVIDERS: PCP Family Medicine; Referring Provider Ophthalmology; Visit Provider Ophthalmology
PROC: (CPT 66984; principal; 2020-02-12 12:15)
DX: H25.11 Age-related nuclear cataract, right eye (principal)
CPT/HCPCS: 66984; J0171; J3301; V2787

== ENCOUNTER → 2020-11-07 10:34 | Outpatient (CLI) | payer MEDICARE, BC, SELFPAY ==
--- NOTE | 2020-11-07 10:36 | DI.US.S_ITS ---
PROCEDURE: US PELVIC COMPLETE INDICATIONS: Pelvic and perineal pain Calculus of kidney TECHNIQUE: Real-time scanning was performed of the pelvic organs, with image documentation. Additional endovaginal scanning was necessary due to incomplete visualization of the adnexal and endometrial structures by transabdominal scanning. COMPARISON: [facility], CT, CT KIDNEY URETER BLADDER (KUB), 07/24/2019, 19:34. [facility], , PELVIC COMPLETE, 12/25/2014, 17:02. [facility], , US RENAL COMPLETE, 11/07/2020, 10:57. FINDINGS: Uterus: Uterus is normal in size at 5.3 x 3.2 x 3.9 cm. The endometrium measures 4 mm in combined thickness. Ovaries: The right ovary measures 1.6 x 1 x 0.5 cm. The left ovary measures 1.6 x 0.6 x 0.8 cm. The ovaries have a normal sonographic appearance. No adnexal masses are seen. Normal appearing arterial waveforms are confirmed to each ovary. Other: No pathologic free abdominal or pelvic fluid. IMPRESSION: A cause of pelvic pain is not identified on these images. Dictated by: Ruel Krishnan M.D. on 11/07/2020 at 12:46 Approved by: Ruel Krishnan M.D. on 11/07/2020 at 12:50
--- NOTE | 2020-11-07 10:36 | DI.US.S_ITS ---
PROCEDURE: US RENAL COMPLETE INDICATIONS: Pelvic and perineal pain Calculus of kidney TECHNIQUE: Real-time scanning was performed of the kidneys and bladder, with image documentation. COMPARISON: [facility], US, US RENAL COMPLETE, 12/31/2019, 13:37. [facility], CT, CT KIDNEY URETER BLADDER (KUB), 07/24/2019, 19:34. [facility], US, US RENAL COMPLETE, 07/30/2019, 9:54. [facility], US, US PELVIC COMPLETE, 11/07/2020, 11:09. FINDINGS: Kidneys: Kidneys are normal in size. Right kidney measures 11.1 cm long; left kidney measures 11.5 cm long. Right renal cortical thickness is 1.7 cm; left renal cortical thickness is 1.6 cm. Renal cortical echotexture is normal. No hydronephrosis or nephrolithiasis. No suspicious solid mass lesions. There is a 7 mm no acute rated cyst seen on the right superiorly measures up to 7 mm. Bladder: Pre-void bladder volume is 42 mL. No postvoid residual measurement was obtained, secondary to the small bladder volume. Pre-void images demonstrate no intraluminal masses or stones. On pre-void images, both ureteral jets are noted with color Doppler interrogation. (Of note, ureteral jets may not be detectable in up to 25% of cases due to insufficient differences in specific gravity between ureteral and bladder urine). Miscellaneous: No free pelvic fluid. IMPRESSION: Negative for hydronephrosis. No shadowing stones are seen. Dictated by: Ruel Krishnan M.D. on 11/07/2020 at 12:43 Approved by: Ruel Krishnan M.D. on 11/07/2020 at 12:44
== END ==
PROVIDERS: PCP Family Medicine; Referring Provider Urology; Visit Provider Urology
DX: N20.0 Calculus of kidney (principal); R10.2 Pelvic and perineal pain
CPT/HCPCS: 76770; 76830; 76856

== ENCOUNTER 2020-12-04 17:17 | Emergency (ER) | payer MEDICARE, BC, SELFPAY ==
[2020-12-04 17:22] VITALS: BP 158/81; PULSE 92; RESP 14; TEMP 36.7; O2SAT 98
--- NOTE | 2020-12-04 17:35 | DI.CT.S_ITS ---
PROCEDURE: CT KIDNEY URETER BLADDER (KUB) INDICATIONS: left flank pain similar to previous kidney stones TECHNIQUE: Noncontrast 5 mm thick sections acquired from the diaphragms to the symphysis. 5 mm thick coronal and sagittal reformats were then performed. For radiation dose reduction, the following was used: automated exposure control, adjustment of mA and/or kV according to patient size. COMPARISON: [facility], CT, CT KIDNEY URETER BLADDER (KUB), 07/24/2019, 19:34. FINDINGS: Image quality: Excellent. Lung bases: Lung bases are clear. Heart size is normal. Urinary system: Right kidney: No stone or hydronephrosis. Right ureter: Unremarkable. Left kidney: Mild hydronephrosis. No parenchymal stone. Left ureter: Mildly dilated to just proximal to the ureterovesical junction, where it is obstructed by a 6 x 5 mm stone. Bladder: Decompressed. No bladder stones. Other solid organs: Liver is normal in size. Gallbladder contains multiple tiny dependent stones. No gallbladder wall thickening.. Pancreas is normal in contours. Spleen is normal in size. No adrenal nodules. Peritoneum and bowel: Unenhanced bowel loops demonstrate normal wall thickness and caliber. No free fluid or air. Nodes and vessels: No retroperitoneal or mesenteric adenopathy by size criteria. Aorta and inferior vena cava are normal in caliber. Abdominal wall: No ventral hernias. Pelvis: No free pelvic fluid. No inguinal hernias or adenopathy. A pessary is in place. Bones: No suspicious bony lesions. No vertebral body compression fractures. Lumbar degenerative change with at least moderate canal stenosis at L3-L4. IMPRESSION: 1. A 6 x 5 mm stone obstructs the left ureter just proximal to the left ureterovesical junction resulting in mild left hydronephrosis. 2. Cholelithiasis. Dictated by: Caden Santiago M.D. on 12/04/2020 at 17:56 Approved by: Caden Santiago M.D. on 12/04/2020 at 18:00
[2020-12-04 18:19] LABS: Add Manual Diff / Slide Review NO; Basophils Absolute Auto 0 /uL (0-100); Basophils Percent Auto 0.4 % (0-2); Eosinophils Absolute Auto 0 /uL (0-450); Hematocrit 37.8 % (36-46); Hemoglobin 12.8 g/dL (12.0-16.0); Lymphocytes Absolute Auto 800 /uL (1100-4500); Lymphocytes Percent Auto 12.4 % (25-40); Mean Corpuscular HGB Conc 33.9 % (30-36); Mean Corpuscular Hemoglobin 30.5 PG (26-34); Mean Corpuscular Volume 90.1 fL (80-100); Monocytes Absolute Auto 0 /uL (0-900); Monocytes Percent Auto 0.4 % (3-14); Neutrophils Absolute Auto 5500 /uL (1500-7000); Neutrophils Percent Auto 86.8 % (50-75); Platelet Count 232 X10^3/uL (150-400); Red Cell Distribution Width 12.6 % (11.6-14.8); White Blood Cell Count 6.3 X10^3/uL (4.5-11.0)
--- NOTE | 2020-12-04 18:27 | ED.GENADULT ---
HPI - General Adult General Chief complaint: Urogenital-Female Stated complaint: SENT BY [facility] - KIDNEY ISSUES Time Seen by Provider: 12/04/20 17:57 Source: patient Mode of arrival: Ambulatory Limitations: no limitations History of Present Illness HPI narrative: 65-year-old female here for evaluation of left-sided/left flank pain. She was sent from the walk-in clinic for evaluation. She states that her symptoms started a couple hours prior to arrival here in the emergency department. Has not had any nausea or vomiting. No change in urination. No blood in her urine. Had similar symptoms a couple years ago she was diagnosed with a kidney stone for which she passed on her own. She did take the Flomax when the symptoms started. She also had pain medicine at home left over from her last kidney stone and she did take 1 of those prior to arrival. No fevers. Related Data Home Medications Medication Instructions Recorded Confirmed ASPIRIN (#ASPIR 81) 81 mg PO EVERY OTHER DAY #0 09/30/11 03/07/20 CA PANTOTHENATE/FOLIC ACID/VIT 1 tab PO Q DAY #0 09/30/11 03/07/20 (MULTIVITAMIN) [VITAMIN C] 500 mg PO BID #0 10/13/11 03/07/20 VITAMIN E (#E-400) 400 iu PO Q DAY #0 10/29/11 03/07/20 Dimethyl Sulfone (#MSM) 2,000 mg PO BID #0 12/25/12 03/07/20 vitamin B complex 1 tab PO DAILY 02/16/18 03/07/20 Previous Rx's Medication Instructions Recorded celecoxib 200 mg capsule 200 mg PO PRN PRN #90 cap 10/03/19 medroxyprogesterone 2.5 mg tablet 2.5 mg PO QDAY #90 tab 03/07/20 estradiol 1 vag ring VAGINAL [id number] #1 each 09/29/20 omeprazole 20 mg capsule,delayed 20 mg PO DAILY #90 cap 10/20/20 release ondansetron 4 mg PO Q6H PRN #14 tab 12/04/20 tamsulosin [Flomax] 0.4 mg PO DAILY #14 cap 12/04/20 Allergies Allergy/AdvReac Type Severity Reaction Status Date / Time No Known Drug Allergies Allergy Verified 03/07/20 09:42 Review of Systems Constitutional Constitutional: Denies fever(s) Cardiovascular Cardiovascular: Denies chest pain and Denies dyspnea Respiratory Respiratory: Denies dyspnea Gastrointestinal Gastrointestinal: Denies change in bowel habits, Denies nausea and Denies vomiting Comments: Left-sided flank pain Genitourinary Genitourinary: Denies hematuria, Denies dysuria and Reports flank pain Genitourinary: Denies hematuria, Denies dysuria and Reports flank pain Musculoskeletal Musculoskeletal: Denies arthralgias and Denies myalgias Integumentary/Breasts Skin/Breast: Denies lesions and Denies rash Neurologic Neurologic: Denies behavioral changes and Denies confusion Psychiatric Psychiatric: Denies behavioral changes and Denies confusion Hematologic/Lymphatic Hematologic/Lymphatic: Denies easy bruising On Anticoagulants: No Allergic/Immunologic Allergic/Immunologic: Denies urticaria Patient History Medical History Acid reflux Arthritis Cholelithiasis CTS (carpal tunnel syndrome) Hydronephrosis concurrent with and due to calculi of kidney and ureter Kidney stones, calcium oxalate Lumbar spine pain Right lumbar radiculopathy Surgical History Status post arthroscopy (03/2015) Status post dilation and curettage (10/2011) Status post laminectomy (2006) Status post laminectomy (11/2013) Social History household members: spouse Smoking Status: Never smoker alcohol intake: never Smoking Status: Never smoker alcohol intake frequency: 0-2 drinks per day Substance Use Type: does not use Exam Initial Vital Signs Initial Vital Signs: Vital Signs Temperature 98.1 F 12/04/20 17:22 Pulse Rate 92 H 12/04/20 17:22 Respiratory Rate 14 12/04/20 17:22 Blood Pressure 158/81 H 12/04/20 17:22 Pulse Oximetry 98 12/04/20 17:22 Const General: cooperative and comfortable Limitations: mental status not altered HENMT Head: normal to inspection and normocephalic Resp Effort & Inspection: normal respiratory effort Cardio Rate: regular rate GI Inspection: non-distended Skin Lesions: no lesions Rashes: no rashes Neuro General: patient alert and patient awake Cognition: normal cognition Speech: speech normal Extrem General: normal to inspection and capillary refill normal Psych Appearance: grossly normal and well kempt Course Orders Ordered: ED Orders 12/04/20 17:35 CT kidney ureter bladder (KUB) Stat 12/04/20 18:10 Basic Metabolic Panel Stat Complete Blood Count AUTO DIFF Stat Vital Signs Vital signs: Vital Signs - 8 hr 12/04/20 17:22 12/04/20 19:05 Temperature 98.1 F Pulse Rate 92 H 73 Respiratory Rate 14 Blood Pressure 158/81 H 126/80 Pulse Oximetry 98 100 Medical Decision Making Lab Data Lab results reviewed: Yes I reviewed the patient's lab results. Result diagrams: 12/04/20 18:10 12/04/20 18:10 Labs: Lab Results 12/04/20 12/04/20 Range/Units 18:10 18:10 WBC 6.3 (4.5-11.0) X10^3/uL RBC 4.20 (4.0-5.2) X10^6/uL Hgb 12.8 (12.0-16.0) g/dL Hct 37.8 (36-46) % MCV 90.1 (80-100) fL MCH 30.5 (26-34) PG MCHC 33.9 (30-36) % RDW 12.6 (11.6-14.8) % Plt Count 232 (150-400) X10^3/uL Neut % (Auto) 86.8 H (50-75) % Lymph % (Auto) 12.4 L (25-40) % Garza % (Auto) 0.4 L (3-14) % Eos % (Auto) 0.0 L (2-4) % Baso % (Auto) 0.4 (0-2) % Neut # (Auto) 5500 (2284-2141) /uL Lymph # (Auto) 800 L (0762-0835) /uL Garza # (Auto) 0 (0-900) /uL Eos # (Auto) 0 (0-450) /uL Baso # (Auto) 0 (0-100) /uL Sodium 136 L (137-145) mmol/L Potassium 3.9 (3.4-5.1) mmol/L Chloride 104 (98-107) mmol/L Carbon Dioxide 21 L (22-32) mmol/L BUN 19 H (7-17) mg/dL Creatinine 0.57 (0.52-1.04) mg/dL Estimated GFR > 60.0 (>60) mL/min BUN/Creatinine Ratio 33.3 H (6-22) Glucose 167 H (80-110) mg/dL Calcium 9.8 (8.4-10.2) mg/dL Urine Dip Bedside Urine Glucose Negative Bedside Urine Bilirubin - Negative Bedside Urine Ketone +/- 5 Urine Specific Zahl 1.030 Bedside Urine Occult Blood ++ Bedside Urine pH 6.0 Bedside Urine Protein - Negative Bedside Urine Urobilinogen +/- 1mg Bedside Urine Nitrite - Negative Bedside Urine Leukocytes - Negative Esterase Point of care testing: Urine Dip Bedside Urine Glucose Negative Bedside Urine Bilirubin - Negative Bedside Urine Ketone +/- 5 Urine Specific Zahl 1.030 Bedside Urine Occult Blood ++ Bedside Urine pH 6.0 Bedside Urine Protein - Negative Bedside Urine Urobilinogen +/- 1mg Bedside Urine Nitrite - Negative Bedside Urine Leukocytes - Negative Esterase Imaging Data CT scan - abdomen/pelvis: Radiologist's Impression: [address] [id number] Scan ReportSigned Patient: Nicole Bunch JMR#: [id number]: 5Acct:[id number]/Sex: 65 / FDate of Service: 12/04/20Loc: EDAccession Number: [id number] Procedure: CT kidney ureter bladder (KUB) Ordering Provider: Roger Estes PROCEDURE: CT KIDNEY URETER BLADDER (KUB) INDICATIONS: left flank pain similar to previous kidney stones TECHNIQUE: Noncontrast 5 mm thick sections acquired from the diaphragms to the symphysis. 5 mm thick coronal and sagittal reformats were then performed. For radiation dose reduction, the following was used: automated exposure control, adjustment of mA and/or kV according to patient size. COMPARISON: [facility], CT, CT KIDNEY URETER BLADDER (KUB), 07/24/2019, 19:34. FINDINGS: Image quality: Excellent. Lung bases: Lung bases are clear. Heart size is normal. Urinary system: Right kidney: No stone or hydronephrosis. Right ureter: Unremarkable. Left kidney: Mild hydronephrosis. No parenchymal stone. Left ureter: Mildly dilated to just proximal to the ureterovesical junction, where it is obstructed by a 6 x 5 mm stone. Bladder: Decompressed. No bladder stones. Other solid organs: Liver is normal in size. Gallbladder contains multiple tiny dependent stones. No gallbladder wall thickening.. Pancreas is normal in contours. Spleen is normal in size. No adrenal nodules. Peritoneum and bowel: Unenhanced bowel loops demonstrate normal wall thickness and caliber. No free fluid or air. Nodes and vessels: No retroperitoneal or mesenteric adenopathy by size criteria. Aorta and inferior vena cava are normal in caliber. Abdominal wall: No ventral hernias. Pelvis: No free pelvic fluid. No inguinal hernias or adenopathy. A pessary is in place. Bones: No suspicious bony lesions. No vertebral body compression fractures. Lumbar degenerative change with at least moderate canal stenosis at L3-L4. IMPRESSION: 1. A 6 x 5 mm stone obstructs the left ureter just proximal to the left ureterovesical junction resulting in mild left hydronephrosis. 2. Cholelithiasis. Dictated by: Caden Santiago M.D. on 12/04/2020 at 17:56 Approved by: Caden Santiago M.D. on 12/04/2020 at 18:00 [facility] Narrative Medical decision making narrative: History and physical and CT scan consistent with left-sided renal colic. She does not have a urinary tract infection. Creatinine is unremarkable. She actually did not require any pain medicine here in the emergency department. We did discuss her findings and her lab results. Send home with prescription for nausea medicine and also Flomax given the size of the stone. She has pain medicine at home. Was given return precautions and follow-up instructions. She expressed understanding and agreement with plan. Discharge Plan Departure Patient Disposition: Home Clinical Impression: Kidney stone on left side Instructions: DI for Kidney Stones Activity Restrictions/Additional Instructions: Take the Flomax on a daily basis until you have passed the stone. The nausea medicine and pain medication as needed. Contact your urologist for a follow-up. Return to the emergency department for any new or worsening symptoms. Prescriptions: New ondansetron 4 mg tablet,disintegrating 4 mg PO Q6H PRN (Reason: nausea and vomiting) Qty: 14 RF: 0 tamsulosin [Flomax] 0.4 mg capsule 0.4 mg PO DAILY Qty: 14 RF: 0 No Action CA PANTOTHENATE/FOLIC ACID/VIT (MULTIVITAMIN) 1 tab PO Q DAY Qty: 0 RF: 0 ASPIRIN (#ASPIR 81) 81 mg PO EVERY OTHER DAY Qty: 0 RF: 0 [VITAMIN C] 500 mg PO BID Qty: 0 RF: 0 VITAMIN E (#E-400) 400 iu PO Q DAY Qty: 0 RF: 0 Dimethyl Sulfone (#MSM) 2,000 mg PO BID Qty: 0 RF: 0 celecoxib [Celebrex] 200 mg capsule 200 mg PO PRN PRN (Reason: pain) Qty: 90 RF: 3 Estring 2 mg (7.5 mcg /24 hour) ring 1 vag ring vaginal [id number] Qty: 1 RF: 0 omeprazole 20 mg capsule,delayed release(DR/EC) 20 mg PO DAILY Qty: 90 RF: 3 medroxyprogesterone 2.5 mg tablet 2.5 mg PO QDAY Qty: 90 RF: 3 vitamin B complex [B Complex-Vitamin B12] tablet 1 tab PO DAILY RF: 0 Referrals: Tory Short DO [Primary Care Provider] -
[2020-12-04 18:42] LABS: BUN Creatinine Ratio 33.3 (6-22); Blood Urea Nitrogen 19 mg/dL (7-17); Calcium 9.8 mg/dL (8.4-10.2); Carbon Dioxide 21 mmol/L (22-32); Chloride 104 mmol/L (98-107); Estimated Glomerular Filt Rate > 60.0 mL/min (>60); Glucose 167 mg/dL (80-110); HEMOLYSIS 35 (0-50); Potassium 3.9 mmol/L (3.4-5.1); Sodium 136 mmol/L (137-145)
[2020-12-04 19:05] VITALS: BP 126/80; PULSE 73; O2SAT 100
== END 2020-12-04 19:06 | disposition home or self-care (01) ==
PROVIDERS: Nurse Practitioner Family; Emergency Provider Emergency Medicine; PCP Family Medicine
DX: N20.1 Calculus of ureter (principal)
CPT/HCPCS: 36415; 74176; 80048; 81003; 85025; 99284

== ENCOUNTER → 2021-02-10 10:25 | Outpatient (CLI) | payer MEDICARE, BC, SELFPAY ==
--- NOTE | 2021-02-10 | DI.MG.S_ITS ---
BILATERAL DIGITAL SCREENING MAMMOGRAM 3D/2D WITH CAD: 02/10/2021 CLINICAL: Routine screening. Family history of breast cancer. Comparison is made to exams dated: 01/31/2020 mammogram, 12/07/2018 mammogram, 11/18/2016 mammogram, and 12/01/2017 mammogram - [facility]. The tissue of both breasts is extremely dense, which lowers the sensitivity of mammography. Current study was also evaluated with a Computer Aided Detection (CAD) system. No significant masses, calcifications, or other findings are seen in either breast. There has been no significant interval change. IMPRESSION: NEGATIVE There is no mammographic evidence of malignancy. A 1 year screening mammogram is recommended. This exam was interpreted at Station ID: [id number]. NOTE: For mammograms, a report in lay terms will be sent to the patient. Approximately 15% of breast malignancies will not be visualized mammographically. In the management of a palpable breast mass, a negative mammogram must not discourage biopsy of a clinically suspicious lesion. Electronically Signed By: Gualberto tejeda/shaneka:02/10/2021 14:41:51 copy to: Chrissy Clements letter sent: Normal Exam ACR BI-RADS Category 1: Negative 3341F
== END ==
PROVIDERS: PCP Family Medicine; Referring Provider Family Medicine; Visit Provider Family Medicine
DX: Z12.31 Encounter for screening mammogram for malignant neoplasm of breast (principal); Z80.3 Family history of malignant neoplasm of breast
CPT/HCPCS: 77063; 77067

== ENCOUNTER → 2021-02-25 07:02 | Outpatient (CLI) | payer MEDICARE, BC, SELFPAY ==
[2021-02-25 08:50] LABS: Alanine Aminotransferase 28 IU/L (<35); Albumin 4.4 g/dL (3.5-5.0); Albumin Globulin Ratio 1.5 (1.0-2.8); Alkaline Phosphatase 73 U/L (38-126); Aspartate Aminotransferase 40 IU/L (14-36); BUN Creatinine Ratio 55.4 (6-22); Bilirubin Total 0.8 mg/dL (0.2-1.3); Blood Urea Nitrogen 31 mg/dL (7-17); Calcium 9.8 mg/dL (8.4-10.2); Carbon Dioxide 24 mmol/L (22-32); Chloride 107 mmol/L (98-107); Cholesterol 188 mg/dL (140-199); Estimated Glomerular Filt Rate > 60.0 mL/min (>60); Glucose 88 mg/dL (80-110); HDL Cholesterol 64 mg/dL (40-60); HEMOLYSIS < 15 (0-50); LDL Cholesterol Calculated 114 mg/dL (<100); Potassium 4.7 mmol/L (3.4-5.1); Sodium 139 mmol/L (137-145); Total Protein 7.4 g/dL (6.3-8.2); Triglycerides 50 mg/dL (35-150)
== END ==
PROVIDERS: PCP Family Medicine; Referring Provider Family Medicine; Visit Provider Family Medicine
DX: E78.5 Hyperlipidemia, unspecified (principal); Z13.1 Encounter for screening for diabetes mellitus; Z79.1 Long term (current) use of non-steroidal anti-inflammatories (NSAID)
CPT/HCPCS: 36415; 80053; 80061

== ENCOUNTER → 2021-03-24 10:44 | Outpatient (CLI) | payer MEDICARE, BC, SELFPAY ==
--- NOTE | 2021-03-24 10:46 | DI.RAD.S_ITS ---
PROCEDURE: XR DEXA AXIAL SKELETON INDICATIONS: osteopenia; post menopausal COMPARISON: None. FINDINGS: This blank DEXA report has been sent in error by the PACS system. The correct and complete report will be forthcoming in 1-2 days. Thank you for your patience and understanding. Dictated by: Jeanette Beal MD, PhD on 03/24/2021 at 17:32 Approved by: Jeanette Beal MD, PhD on 03/24/2021 at 17:32
== END ==
PROVIDERS: PCP Family Medicine; Referring Provider Orthopaedic Surgery; Visit Provider Family Medicine
DX: Z78.0 Asymptomatic menopausal state (principal); M85.852 Other specified disorders of bone density and structure, left thigh; K92.9 Disease of digestive system, unspecified
CPT/HCPCS: 77080

== ENCOUNTER → 2021-04-28 12:58 | Outpatient (CLI) | payer MEDICARE, BC, SELFPAY ==
[2021-04-28 15:15] LABS: Vitamin D 25 Hydroxy (D3) 73.6 ng/mL (30.0-100.0)
[2021-04-30 17:49] LABS: Hep C Virus Ab w/Reflex Quant NEGATIVE s/c (NEGATIVE)
== END ==
PROVIDERS: PCP Family Medicine; Referring Provider Family Medicine; Visit Provider Family Medicine
DX: M85.80 Other specified disorders of bone density and structure, unspecified site (principal); Z11.59 Encounter for screening for other viral diseases
CPT/HCPCS: 36415; 82306; 86803

== ENCOUNTER → 2022-03-09 11:11 | Outpatient (CLI) | payer MEDICARE, OTHER, SELFPAY ==
--- NOTE | 2022-03-09 | DI.MG.S_ITS ---
BILATERAL DIGITAL SCREENING MAMMOGRAM 3D/2D WITH CAD: 03/09/2022 CLINICAL: Routine screening. Family history of breast cancer. Comparison is made to exams dated: 02/10/2021 mammogram, 01/31/2020 mammogram, and 12/07/2018 mammogram - [facility]. The tissue of both breasts is extremely dense, which lowers the sensitivity of mammography. Current study was also evaluated with a Computer Aided Detection (CAD) system. No significant masses, calcifications, or other findings are seen in either breast. There has been no significant interval change. IMPRESSION: NEGATIVE There is no mammographic evidence of malignancy. A 1 year screening mammogram is recommended. This exam was interpreted at Station ID: [id number]. NOTE: For mammograms, a report in lay terms will be sent to the patient. Approximately 15% of breast malignancies will not be visualized mammographically. In the management of a palpable breast mass, a negative mammogram must not discourage biopsy of a clinically suspicious lesion. Electronically Signed By: Tayler arellano/shaneka:03/09/2022 16:44:20 copy to: Chrissy Clements letter sent: Normal Exam ACR BI-RADS Category 1: Negative 3341F
== END ==
PROVIDERS: PCP Pediatrics; Referring Provider Pediatrics; Visit Provider Family Medicine
DX: Z12.31 Encounter for screening mammogram for malignant neoplasm of breast (principal); Z80.3 Family history of malignant neoplasm of breast
CPT/HCPCS: 77063; 77067

== ENCOUNTER → 2022-03-16 07:49 | Outpatient (CLI) | payer MEDICARE, OTHER, SELFPAY ==
[2022-03-16 08:27] LABS: Appearance Urine UA CLEAR; Bilirubin Urine UA NEGATIVE (NEGATIVE); Color Urine UA YELLOW; Glucose Urine UA NEGATIVE (Negative); Ketones Urine UA NEGATIVE (NEGATIVE); Leukocyte Esterase Urine UA NEGATIVE (NEGATIVE); Nitrite Urine UA NEGATIVE (Negative); Occult Blood Urine UA 1+ (Negative); Protein Urine UA NEGATIVE (Negative); Urobilinogen Urine UA 0.2 E.U./dL (0.2)
[2022-03-16 08:28] LABS: pH Urine UA 6.5 (4.5-8.0)
[2022-03-16 08:34] LABS: RBC Urine None Seen (0-5/HPF); Squamous Epithelial Cell Urine 5-10 /HPF (0-5/HPF); WBC Urine 1-5/HPF (0-5/HPF)
[2022-03-16 08:35] LABS: Add Manual Diff / Slide Review NO; Bacteria Urine Occasional (0-1); Basophils Absolute Auto 100 /uL (0-100); Basophils Percent Auto 1.2 % (0-2); Culture Indicated Urine Cult Not Indicated; Eosinophils Absolute Auto 200 /uL (0-450); Eosinophils Percent Auto 3.4 % (2-4); Hematocrit 37.8 % (36-46); Hemoglobin 12.8 g/dL (12.0-16.0); Lymphocytes Absolute Auto 1600 /uL (1100-4500); Lymphocytes Percent Auto 34.5 % (25-40); Mean Corpuscular HGB Conc 33.8 % (30-36); Mean Corpuscular Hemoglobin 30.3 PG (26-34); Mean Corpuscular Volume 89.8 fL (80-100); Monocytes Absolute Auto 400 /uL (0-900); Monocytes Percent Auto 7.8 % (3-14); Neutrophils Absolute Auto 2500 /uL (1500-7000); Neutrophils Percent Auto 53.1 % (50-75); Platelet Count 254 X10^3/uL (150-400); Red Blood Cell Count 4.21 X10^6/uL (4.0-5.2); Red Cell Distribution Width 12.7 % (11.6-14.8); White Blood Cell Count 4.6 X10^3/uL (4.5-11.0)
[2022-03-16 09:11] LABS: Alanine Aminotransferase 26 IU/L (<35); Albumin 4.5 g/dL (3.5-5.0); Albumin Globulin Ratio 1.6 (1.0-2.8); Alkaline Phosphatase 73 U/L (38-126); Aspartate Aminotransferase 37 IU/L (14-36); BUN Creatinine Ratio 28.2 (6-22); Bilirubin Total 0.7 mg/dL (0.2-1.3); Blood Urea Nitrogen 20 mg/dL (7-17); Carbon Dioxide 29 mmol/L (22-32); Chloride 105 mmol/L (98-107); Cholesterol 196 mg/dL (140-199); Estimated Glomerular Filt Rate > 60 mL/min (>60); Globulin 2.9 g/dL (1.7-4.1); Glucose 89 mg/dL (80-110); HDL Cholesterol 63 mg/dL (40-60); HEMOLYSIS < 15 (0-50); LDL Cholesterol Calculated 122 mg/dL (<100); Potassium 4.4 mmol/L (3.4-5.1); Sodium 139 mmol/L (137-145); Total Protein 7.4 g/dL (6.3-8.2); Triglycerides 54 mg/dL (35-150)
[2022-03-16 09:40] LABS: TSH w/ Reflex to FT4 2.31 uIU/mL (0.47-4.68)
== END ==
PROVIDERS: PCP Pediatrics; Referring Provider Pediatrics; Visit Provider Pediatrics
DX: N32.9 Bladder disorder, unspecified (principal); Z13.220 Encounter for screening for lipoid disorders; Z13.228 Encounter for screening for other metabolic disorders; Z13.29 Encounter for screening for other suspected endocrine disorder
CPT/HCPCS: 36415; 80053; 80061; 81001; 84443; 85025

== ENCOUNTER → 2023-03-16 08:27 | Outpatient (CLI) | payer MEDICARE, OTHER, SELFPAY ==
--- NOTE | 2023-03-16 | DI.MG.S_ITS ---
BILATERAL DIGITAL SCREENING MAMMOGRAM 3D/2D WITH CAD: 03/16/2023 CLINICAL: Routine screening. Family history of breast cancer. Comparison is made to exams dated: 03/09/2022 mammogram, 02/10/2021 mammogram, and 01/31/2020 mammogram - [facility]. Both breasts are extremely dense, which lowers the sensitivity of mammography (category d />75% glandular tissue). Current study was also evaluated with a Computer Aided Detection (CAD) system. No significant masses, calcifications, or other findings are seen in either breast. There has been no significant interval change. IMPRESSION: NEGATIVE There is no mammographic evidence of malignancy. A 1 year screening mammogram is recommended. Based on the Tyrer Cuzick model (a risk assessment model) the patient's lifetime risk is 16.1% and her 10 year risk is 8.7%. According to the ACR, ACS, and NCCN guidelines, an annual breast MRI exam along with mammogram is recommended if the patient's lifetime risk is 20% or greater. This exam was interpreted at Station ID: [id number]. NOTE: For mammograms, a report in lay terms will be sent to the patient. Approximately 15% of breast malignancies will not be visualized mammographically. In the management of a palpable breast mass, a negative mammogram must not discourage biopsy of a clinically suspicious lesion. Electronically Signed By: Aron [email or web address]/shaneka:03/16/2023 08:56:11 copy to: Chrissy Clements letter sent: Normal Exam ACR BI-RADS Category 1: Negative 3341F
== END ==
PROVIDERS: PCP Nurse Practitioner; Referring Provider Nurse Practitioner; Visit Provider Nurse Practitioner
DX: Z12.31 Encounter for screening mammogram for malignant neoplasm of breast (principal); Z80.3 Family history of malignant neoplasm of breast
CPT/HCPCS: 77063; 77067

== ENCOUNTER → 2023-06-01 07:53 | Outpatient (CLI) | payer MEDICARE, OTHER, SELFPAY ==
[2023-06-01 09:18] LABS: Alanine Aminotransferase 29 IU/L (<35); Albumin 4.3 g/dL (3.5-5.0); Albumin Globulin Ratio 1.5 (1.0-2.8); Alkaline Phosphatase 60 U/L (38-126); Aspartate Aminotransferase 33 IU/L (14-36); BUN Creatinine Ratio 26.5 (6-22); Bilirubin Total 1.1 mg/dL (0.2-1.3); Blood Urea Nitrogen 18 mg/dL (7-17); Calcium 9.5 mg/dL (8.4-10.2); Carbon Dioxide 29 mmol/L (22-32); Chloride 103 mmol/L (98-107); Cholesterol 193 mg/dL (140-199); Estimated Glomerular Filt Rate > 60 mL/min (>60); Globulin 2.9 g/dL (1.7-4.1); Glucose 87 mg/dL (80-110); HDL Cholesterol 60 mg/dL (40-60); HEMOLYSIS < 15 (0-50); LDL Cholesterol Calculated 121 mg/dL (<100); Potassium 4.4 mmol/L (3.4-5.1); Sodium 139 mmol/L (137-145); Total Protein 7.2 g/dL (6.3-8.2); Triglycerides 59 mg/dL (35-150)
== END ==
PROVIDERS: PCP Nurse Practitioner; Referring Provider Family Medicine; Visit Provider Family Medicine
DX: E78.5 Hyperlipidemia, unspecified (principal); K21.9 Gastro-esophageal reflux disease without esophagitis
CPT/HCPCS: 36415; 80053; 80061

== ENCOUNTER → 2023-07-04 14:20 | Outpatient (CLI) | payer MEDICARE, OTHER, SELFPAY ==
[2023-07-06 04:08] LABS: Apolipoprotein B 82 mg/dL (<90)
== END ==
PROVIDERS: PCP Nurse Practitioner; Referring Provider Family Medicine; Visit Provider Family Medicine
DX: E78.5 Hyperlipidemia, unspecified (principal)
CPT/HCPCS: 36415; 82172

== ENCOUNTER → 2023-09-07 08:55 | Outpatient (CLI) | payer MEDICARE, OTHER, SELFPAY ==
--- NOTE | 2023-09-07 08:56 | DI.CT.S_ITS ---
PROCEDURE: CT CHEST WO CON INDICATIONS: pulmonary nodules TECHNIQUE: Noncontrast 5 mm thick sections acquired from the pulmonary apices to the posterior costophrenic angles. 1 mm lung window, 5 mm thick coronal and sagittal and 7 mm axial MIP reformats were then acquired. For radiation dose reduction, the following was used: automated exposure control, adjustment of mA and/or kV according to patient size. COMPARISON: [facility], CT, CT KIDNEY URETER BLADDER (KUB), 12/04/2020, 17:38. FINDINGS: Image quality: Diagnostic. Lower Neck: No enlarged lymph nodes. Thyroid: No thyroid nodules which require sonographic follow up, per consensus guidelines. Axillae: No enlarged lymph nodes. Chest Wall: Unremarkable. Bones: Unremarkable. Lungs and Pleura: A few small pulmonary nodules. For example: Right upper lobe possible pulmonary nodule versus branching pulmonary arteries measuring 0.6 cm, (84). Right middle lobe medial 0.5 cm, (3/217), unchanged since 2020. Several small calcified granulomas. No consolidative opacity. Multiple areas of distal mucus airway plugging. No pneumothorax or pleural effusions. Heart: Heart size is normal. No pericardial effusion. Thoracic Vessels: The aorta and pulmonary arteries demonstrate normal size. Mediastinum and Laura: No enlarged lymph nodes. Esophagus: No wall thickening. No hiatal hernia. Upper Abdomen: Visualized upper abdomen solid organs and bowel loops appear normal. Small cyst in the right liver. IMPRESSION: 1. Right upper lobe pulmonary nodule versus branching vessels measuring 0.6 cm. Recommend follow-up CT chest in 6-12 months. 2. Multiple areas of distal mucus airway plugging suggesting bronchitis. No consolidation. 3. No adenopathy seen. Dictated by: Remington Horowitz M.D. on 09/07/2023 at 10:59 Approved by: Remington Horowitz M.D. on 09/07/2023 at 11:14
== END ==
PROVIDERS: PCP Nurse Practitioner; Referring Provider Nurse Practitioner; Visit Provider Nurse Practitioner
DX: J18.9 Pneumonia, unspecified organism; T17.908S Unspecified foreign body in respiratory tract, part unspecified causing other injury, sequela; R91.8 Other nonspecific abnormal finding of lung field
CPT/HCPCS: 71250

== ENCOUNTER → 2023-12-21 07:53 | Outpatient (CLI) | payer MEDICARE, OTHER, SELFPAY ==
[2023-12-21 09:24] LABS: Cholesterol 186 mg/dL (140-199); HDL Cholesterol 54 mg/dL (40-60); LDL Cholesterol Calculated 121 mg/dL (<100); Triglycerides 55 mg/dL (35-150)
== END ==
LOC: LAB 07:54
PROVIDERS: PCP Nurse Practitioner; Referring Provider Nurse Practitioner; Visit Provider Nurse Practitioner
DX: E78.00 Pure hypercholesterolemia, unspecified (principal)
CPT/HCPCS: 36415; 80061

== ENCOUNTER → 2024-03-26 08:07 | Outpatient (CLI) | payer MEDICARE, OTHER, SELFPAY ==
--- NOTE | 2024-03-26 08:08 | DI.MG.S_ITS ---
BILATERAL DIGITAL SCREENING MAMMOGRAM 3D/2D WITH CAD: 03/26/2024 CLINICAL: Routine screening. Family history of breast cancer. Comparison is made to exams dated: 03/16/2023 mammogram, 03/09/2022 mammogram, and 02/10/2021 mammogram - [facility]. Both breasts are heterogeneously dense, which may obscure small masses (category c / 51-75% glandular tissue). Current study was also evaluated with a Computer Aided Detection (CAD) system. No significant masses, calcifications, or other findings are seen in either breast. There has been no significant interval change. IMPRESSION: NEGATIVE There is no mammographic evidence of malignancy. A 1 year screening mammogram is recommended. Based on the Tyrer Cuzick model (a risk assessment model) the patient's lifetime risk is 10.3% and her 10 year risk is 5.8%. According to the ACR, ACS, and NCCN guidelines, an annual breast MRI exam along with mammogram is recommended if the patient's lifetime risk is 20% or greater. This exam was interpreted at Station ID: [id number]. NOTE: For mammograms, a report in lay terms will be sent to the patient. Approximately 15% of breast malignancies will not be visualized mammographically. In the management of a palpable breast mass, a negative mammogram must not discourage biopsy of a clinically suspicious lesion. Electronically Signed By: Aron mckeon/shaneka:03/26/2024 09:50:51 copy to: Chrissy Clements letter sent: Normal Exam ACR BI-RADS Category 1: Negative [id number]
== END ==
PROVIDERS: PCP Family Medicine; Referring Provider Family Medicine; Visit Provider Family Medicine
DX: Z12.31 Encounter for screening mammogram for malignant neoplasm of breast (principal); Z80.3 Family history of malignant neoplasm of breast; R92.333 Mammographic heterogeneous density, bilateral breasts
CPT/HCPCS: 77063; 77067

== ENCOUNTER → 2024-06-27 | Outpatient (CLI) | payer MEDICARE, OTHER, SELFPAY ==
--- NOTE | 2024-06-27 10:48 | DI.RAD.S_ITS ---
PROCEDURE: XR DEXA AXIAL SKELETON INDICATIONS: bone density screening COMPARISON: [facility], [place], XR DEXA AXIAL SKELETON, 03/24/2021, 11:19. FINDINGS: Lumbar Spine: Bone mineral density 0.968 g/cm2, T score -0.7. There is interval 1.7% decrease in total lumbar spine bone mineral density. Left Forearm: Bone mineral density 0.680 g/cm2, T score -0.2. Fracture Risk Calculation (when applicable): Not applicable. (T score greater or equal to -1.0 to: NORMAL) (T score from -1.1 to -2.4: OSTEOPENIA) (T score less than or equal to -2.5: OSTEOPOROSIS) IMPRESSION: Normal bone mineral density. Follow-up guidelines as follows: Osteoporosis: Consider a repeat DEXA and Vertebral Fracture Assessment (VFA) exam in 2 years or sooner if medically necessary, to reassess this patient's status. Osteopenia: Consider a repeat DEXA in 2-3 years to reassess this patient's status, or if there is a new clinical indication. Normal: Consider a repeat DEXA in 5 years or sooner, or if there is a new clinical indication. All treatment decisions require clinical judgment and consideration of individual patient factors, including patient preferences, comorbidities, previous drug use, risk factors not captured in the FRAX model (e.g., frailty, falls, vitamin D deficiency, increased bone turnover, interval significant decline in bone density ) and possible under- or over-estimation of fracture risk by FRAX. In addition, the NOF Guide recommends that FDA-approved medical therapies be considered in postmenopausal women and men age >= 50 years with a: * Hip or vertebral (clinical or morphometric) fracture * T-score of <=-2.5 at the spine or hip * Ten-year fracture probability by FRAX of >= 3% for hip fracture or >=20% for major osteoporotic fracture. People with diagnosed cases of osteoporosis or at high risk for fracture should have regular bone mineral density tests. For patients eligible for Medicare, routine testing is allowed once every 2 years. The testing frequency can be increased to one year for patients who have rapidly progressing disease, those who are receiving or discontinuing medical therapy to restore bone mass, or have additional risk factors. Dictated by: Frank Inman M.D. on 06/27/2024 at 17:50 Approved by: Frank Inman M.D. on 06/27/2024 at 17:52
--- NOTE | 2024-06-27 10:48 | DI.CT.S_ITS ---
PROCEDURE: CT CHEST WO CON INDICATIONS: FU on pulmonary nodules TECHNIQUE: Noncontrast 5 mm thick sections acquired from the pulmonary apices to the posterior costophrenic angles. 1 mm lung window, 5 mm thick coronal and sagittal and 7 mm axial MIP reformats were then acquired. For radiation dose reduction, the following was used: automated exposure control, adjustment of mA and/or kV according to patient size. COMPARISON: [facility], CT, CT CHEST WO CON, 09/07/2023, 9:05. FINDINGS: Image quality: Diagnostic. Lower Neck: No enlarged lymph nodes. Thyroid: No thyroid nodules which require sonographic follow up, per consensus guidelines. Axillae: No enlarged lymph nodes. Chest Wall: Unremarkable. Bones: Unremarkable. Lungs and Pleura: No pneumothorax or pleural effusions. Stable 6 mm right upper lobe pulmonary nodule versus branching pulmonary arteries (3/32). Stable 5 mm nodule within the medial right middle lobe (3/77). Multiple areas of distal airway mucous plugging is again noted. Multiple scatted pulmonary micro nodules and calcified granulomata are redemonstrated. Heart: Heart size is normal. No pericardial effusion. Thoracic Vessels: The aorta and pulmonary arteries demonstrate normal size. Mediastinum and Laura: No enlarged lymph nodes. Esophagus: No wall thickening. Small hiatal hernia. Upper Abdomen: Cholelithiasis within the partially visualized gallbladder. IMPRESSION: 1. Stable right upper lobe pulmonary nodule versus branching vessel measuring 6mm, recommend follow up CT chest in 12 months. 2. Multiple areas of distal mucus airway plugging are again seen, suggesting bronchitis. 3. Multiple scattered pulmonary micro nodules and calcified granulomata are similar to prior. Dictated by: Evens Aquino M.D. on 06/27/2024 at 15:15 Approved by: Evens Aquino M.D. on 07/10/2024 at 12:54
== END ==
LOC: RAD 10:48
PROVIDERS: PCP Family Medicine; Referring Provider Family Medicine; Visit Provider Family Medicine
DX: K80.20 Calculus of gallbladder without cholecystitis without obstruction (principal); R91.8 Other nonspecific abnormal finding of lung field; M81.0 Age-related osteoporosis without current pathological fracture
CPT/HCPCS: 71250; 77080; 77081

== ENCOUNTER 2025-02-27 09:00 | Outpatient (RCR) | payer MEDICARE, OTHER, SELFPAY ==
--- NOTE | 2024-12-05 15:30 | PT.OIE ---
Current Diagnoses Unilateral primary osteoarthritis, right knee (12/05/24) Pain in right knee (12/05/24) Encounter for other orthopedic aftercare (12/05/24) Past Medical History (Last Updated 06/11/24 @ 08:58 by Nelsy Lee DO) Acid reflux Arthritis Carpal tunnel syndrome (09/30/11) Cholelithiasis Degeneration of intervertebral disc of lumbar region (09/30/11) Hydronephrosis concurrent with and due to calculi of kidney and ureter Kidney stones, calcium oxalate Lumbar stenosis (09/30/11) Preventative health care Pulmonary nodule Right lumbar radiculopathy Past Surgical History (Last Updated 06/11/24 @ 08:58 by Nelsy Lee DO) Status post arthroscopy (03/2015) Status post dilation and curettage (10/2011) Status post laminectomy (2006) Status post laminectomy (11/2013) Status post left hip replacement (~11/2023) Status post left knee replacement (~02/2021) Status post right hip replacement (~04/2022) Visit Care Team Role Provider Type Nelsy Lee DO Family Provider Physician Primary Care Provider Specialty: Medical Address: [address] [place] [address], [address], [address] Email: [email or web address] Rayo Rojo MD Attending Provider Non-Staff Referring Provider Specialty: Orthopedics Orthopedic Surgery Address: [address] [place] [address], [id number] Email: Physical Therapy Initial Evaluation PT-OP-A Visit Information Start: 12/03/24 16:42 Freq: Status: Active Protocol: Document 12/05/24 09:45 MB (Rec: 12/05/24 10:10 MB [id number]) Out-Patient Physical Therapy Visit Information Visit Information Visit Type Initial Evaluation Visit Note Medicare 09/30 before KX Progress note by 01/05/25 Visit Start Time 09:45 Visit Stop Time 10:25 Visit Number 1 Number of ANALYTICAL LEAD Visits 0 Evaluation Information Evaluation Date 12/05/24 PT-OP-B Current Condition Start: 12/03/24 16:42 Freq: Status: Active Protocol: Document 12/05/24 09:45 MB (Rec: 12/05/24 10:10 MB [id number]) Current Condition History of Current Condition Onset Date 12/03/24 Current Complaints Not yet fully independent History of Current Condition Pt underwent right TKA 12/03/24 . She has history of B THR and left TKAs. 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 Pt has compression stockings and does not like to wear compression hose. She arrives with christiano wrap donned well. Pt has a history of lumbar stenosis and herniation s/p L5 -S1 lami and decompression an L4-L5 revision. Pt has residual numbess and weakness left LE in PF and anterior story. She does not have good toe extension in left foot. Pt has B carpal tunnel surgery. PT-OP-C Subjective Start: 12/03/24 16:42 Freq: Status: Active Protocol: Document 12/05/24 09:45 MB (Rec: 12/05/24 10:10 MB [id number]) OP-PT Subjective Patient Comments Patient Comments Return to complete I. Patient Questionnaires Lower Extremity Functional Scale LEFS Score 34 LEFS Impairment 40 to 59% Impaired (Score 32- 47) PT-OP-G Mobility & Gait Start: 12/03/24 16:42 Freq: Status: Active Protocol: Document 12/05/24 09:45 MB (Rec: 12/05/24 10:10 MB [id number]) OP Gait Assessment Comments Gait Comments Pt gait trains with B crutches or left crutch with antalgic step-through gait with decreased heel strike and functional knee flexion and extension with WB PT-OP-J Posture/Palpation/Skin Start: 12/03/24 16:42 Freq: Status: Active Protocol: Document 12/05/24 09:45 MB (Rec: 12/05/24 10:10 MB [id number]) Palpation Assessment Location RLE Palpation Details Mild edema RLE, worse in the right ankle PT-OP-K Range of Motion Start: 12/03/24 16:42 Freq: Status: Active Protocol: Document 12/05/24 09:45 MB (Rec: 12/05/24 10:10 MB [id number]) Knee Goniometric Range of Motion Knee Left Patient Position Supine Comments 0-123 deg Right Patient Position Supine Comments 9-104 deg PT-OP-M Strength Start: 12/03/24 16:42 Freq: Status: Active Protocol: Document 12/05/24 09:45 MB (Rec: 12/05/24 10:10 MB [id number]) Hip Strength Hip Manual Muscle Testing Left Flexion (L2) 4+ Good+ Abduction 5 Normal Right Comments RLE edema, all MMT in supine, right knee pain and so deferred hip MMT in supine given discomfort with attempted SLR Knee Strength Knee Manual Muscle Testing Left Flexion (S2) 5 Normal Extension (L3) 5 Normal Right Comments Deferred d/t pain, unable to SLR yet, makes a quad set Ankle/Foot Strength Ankle and Foot Manual Muscle Testing Left Dorsiflexion (L4) 5 Normal Right Dorsiflexion (L4) 5 Normal Toe Strength Toe Manual Muscle Testing Left Great Toe Extension 5 Normal Right Great Toe Extension 5 Normal PT-OP-Q Treatments Start: 12/03/24 16:42 Freq: Status: Active Protocol: Document 12/05/24 09:45 MB (Rec: 12/05/24 10:14 MB [id number]) Cardio Equipment Bicycle (Upright) Resistance 0 Seat Position 7 Other Backwards cycling, >10 min Therapeutic Exercises Supine Exercises SLR Supine Exercise Name Verbally reviewed, pt is currently unable to perform APs, HS and QS Supine Exercise Name Verbally reviewed, is already doing post-op Side bilateral Comments Very weak QS on the right today Self-Care/Home Management Treatment Education Patient Education Body Mechanics,Home Exercise Program,Joint Protection,Pain Management,Posture Other Education Ed in benefits of thigh high compression hose d/t pt states she does not like and presents with RLE and ankle edema under christiano wrap today, ed to work on step-through with gait for functional knee flexion and weight acceptance through right ankle rather than irritating joint with dangling leg in extension and forcing flexion in supine. Benefits of upright bike and initiated today. PT-OP-T Assessment and Plan Start: 12/03/24 16:42 Freq: Status: Active Protocol: Document 12/05/24 09:45 MB (Rec: 12/05/24 10:10 MB [id number]) Physical Therapy Assessment Rehab Potential Rehabilitation Potential Excellent Evaluation Complexity Number of Personal Factors/Comorbidities 0 Number of Body Systems Impaired 1-2 Clinical Presentation at Evaluation Stable Impairments Impairments Activity Tolerance,Balance, Coordination,Edema,Functional Activities,Functional Mobility ,Gait,Integument,Pain,Posture, ROM,Sensation,Soft Tissue Mobility,Strength,Transfers Goals 4 Impairment Right quad weakness Head Paper Tester Goal (LTG) Pt will perform at least 15 reps STS in 30 sec to improve functional strength and transfers. LTG Duration 8 weeks 3 Impairment Imbalance Detention Goal (LTG) Pt will perform WNLs on FGA to decrease fall risk. LTG Duration 8 weeks 2 Impairment Impaired gait with crutches Head Paper Tester Goal (LTG) Pt will gait train at least 1614 feet without AD in 6 minutes to improve community ambulation. LTG Duration 8 weeks 1 Impairment LEF score reflects 57.5% impairment Detention Goal (LTG) Pt will present with LEF score reflecting no more than 25% impairment to improve function . 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 She is 2 days post-op right TKA. She prefers to use 1-2 crutches for gait at this time and does not prefer thigh high compression hose. She has post -op edema and pain in right leg, and does not present with a functional QS and HS is also limited and painful. She wishes to get on upright bike and does some minimal back pedaling today for many minutes. She is a good therapy candidate and will benefit from PT to improve functional use of her right knee. PT would like to see pt wearing thigh high compression for edema and pain management. Physical Therapy Plan Frequency and Duration Duration of treatment (weeks) 8 Plan of Care Start Date 12/05/24 Plan of Care End Date 02/04/25 Therapeutic Interventions Therapeutic Interventions Balance Training,Canalithic Repositioning,Coordination Training,Gait Training,Home Exercise Program,Joint Mobilizations,Manual Therapy, Neuromuscular Re-education, Patient/Caregiver Education, Self-Care/Home Management,Soft Tissue Mobilization,Taping, Therapeutic Activities, Therapeutic Exercises Next Visit Focus/Plan Next Note Type Treatment Note Next Visit Plan Try upright bike, height 7 Initiate manual work.
--- NOTE | 2024-12-05 15:31 | PT.OPPOC ---
Physical, Occupational & Speech Therapy At [facility] Current Diagnoses Unilateral primary osteoarthritis, right knee (12/05/24) Pain in right knee (12/05/24) Encounter for other orthopedic aftercare (12/05/24) Visit Care Team Role Provider Type Nelsy Lee DO Family Provider Physician Primary Care Provider Specialty: Medical Address: [address] [place] [address], [address], [place], [address] Email: [email or web address] Rayo Rojo MD Attending Provider Non-Staff Referring Provider Specialty: Orthopedics Orthopedic Surgery Address: [address] [place] [address], [address] Email: Plan Of Care PT-OP-B Current Condition Start: 12/03/24 16:42 Freq: Status: Active Protocol: Document 12/05/24 09:45 MB (Rec: 12/05/24 10:10 [id number]) Current Condition History of Current Condition Onset Date 12/03/24 Current Complaints Not yet fully independent History of Current Condition Pt underwent right TKA 12/03/24 . She has history of B THR and left TKAs. 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 Pt has compression stockings and does not like to wear compression hose. She arrives with christiano wrap donned well. Pt has a history of lumbar stenosis and herniation s/p L5 -S1 lami and decompression an L4-L5 revision. Pt has residual numbess and weakness left LE in PF and anterior story. She does not have good toe extension in left foot. Pt has B carpal tunnel surgery. PT-OP-T Assessment and Plan Start: 12/03/24 16:42 Freq: Status: Active Protocol: Document 12/05/24 09:45 MB (Rec: 12/05/24 10:10 MB [id number]) Physical Therapy Assessment Rehab Potential Rehabilitation Potential Excellent Evaluation Complexity Number of Personal Factors/Comorbidities 0 Number of Body Systems Impaired 1-2 Clinical Presentation at Evaluation Stable Impairments Impairments Activity Tolerance,Balance, Coordination,Edema,Functional Activities,Functional Mobility ,Gait,Integument,Pain,Posture, ROM,Sensation,Soft Tissue Mobility,Strength,Transfers Goals 4 Impairment Right quad weakness Mcfp Goal (LTG) Pt will perform at least 15 reps STS in 30 sec to improve functional strength and transfers. LTG Duration 8 weeks 3 Impairment Imbalance Logistics Operations Manager Goal (LTG) Pt will perform WNLs on FGA to decrease fall risk. LTG Duration 8 weeks 2 Impairment Impaired gait with crutches Logistics Operations Manager Goal (LTG) Pt will gait train at least 1614 feet without AD in 6 minutes to improve community ambulation. LTG Duration 8 weeks 1 Impairment LEF score reflects 57.5% impairment Logistics Operations Manager Goal (LTG) Pt will present with LEF score reflecting no more than 25% impairment to improve function . 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 She is 2 days post-op right TKA. She prefers to use 1-2 crutches for gait at this time and does not prefer thigh high compression hose. She has post -op edema and pain in right leg, and does not present with a functional QS and HS is also limited and painful. She wishes to get on upright bike and does some minimal back pedaling today for many minutes. She is a good therapy candidate and will benefit from PT to improve functional use of her right knee. PT would like to see pt wearing thigh high compression for edema and pain management. Physical Therapy Plan Frequency and Duration Duration of treatment (weeks) 8 Plan of Care Start Date 12/05/24 Plan of Care End Date 02/04/25 Therapeutic Interventions Therapeutic Interventions Balance Training,Canalithic Repositioning,Coordination Training,Gait Training,Home Exercise Program,Joint Mobilizations,Manual Therapy, Neuromuscular Re-education, Patient/Caregiver Education, Self-Care/Home Management,Soft Tissue Mobilization,Taping, Therapeutic Activities, Therapeutic Exercises Next Visit Focus/Plan Next Note Type Treatment Note Next Visit Plan Try upright bike, height 7 Initiate manual work. Plan of Care Dates Plan of Care Start Date 12/05/24 Plan of Care End Date 02/04/25 Electronically Signed by: Mariah Chaney PT 12/05/24 0999 If you are in agreement with this Plan of Care, please return a signed and dated copy. I have reviewed this Plan of Care and certify that the skilled therapy services above are required to meet the patient?s needs. Physician Signature Date Printed Name and Credentials Clinical Instructor Signature Printed Name and Credentials
--- NOTE | 2024-12-12 10:36 | PT.OTN ---
Current Diagnoses Unilateral primary osteoarthritis, right knee (12/12/24) Pain in right knee (12/12/24) Encounter for other orthopedic aftercare (12/12/24) Physical Therapy Treatment Note PT-OP-A Visit Information Start: 12/03/24 16:42 Freq: Status: Active Protocol: Document 12/12/24 09:46 MB (Rec: 12/12/24 10:36 MB [id number]) Out-Patient Physical Therapy Visit Information Visit Information Visit Type Initial Evaluation Visit Note Medicare 10/31 before KX Progress note by 01/05/25 Visit Start Time 09:46 Visit Stop Time 10:26 Visit Number 2 Number of STORE LEADER Visits 0 Evaluation Information Evaluation Date 12/05/24 PT-OP-B Current Condition Start: 12/03/24 16:42 Freq: Status: Active Protocol: Document 12/05/24 09:45 MB (Rec: 12/05/24 10:10 MB [id number]) Current Condition History of Current Condition Onset Date 12/03/24 Current Complaints Not yet fully independent History of Current Condition Pt underwent right TKA 12/03/24 . She has history of B THR and left TKAs. 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 Pt has compression stockings and does not like to wear compression hose. She arrives with christiano wrap donned well. Pt has a history of lumbar stenosis and herniation s/p L5 -S1 lami and decompression an L4-L5 revision. Pt has residual numbess and weakness left LE in PF and anterior story. She does not have good toe extension in left foot. Pt has B carpal tunnel surgery. PT-OP-C Subjective Start: 12/03/24 16:42 Freq: Status: Active Protocol: Document 12/12/24 09:46 MB (Rec: 12/12/24 10:36 MB [id number]) OP-PT Subjective Patient Comments Patient Comments Pt feels sore from bruising. She took the dressing off today. She may cancel first post-op appointment d/t she is doing well and can contact surgeon. Pt is walking two miles with walking stick in left hand. PT-OP-G Mobility & Gait Start: 12/03/24 16:42 Freq: Status: Active Protocol: Document 12/05/24 09:45 MB (Rec: 12/05/24 10:10 MB [id number]) OP Gait Assessment Comments Gait Comments Pt gait trains with B crutches or left crutch with antalgic step-through gait with decreased heel strike and functional knee flexion and extension with WB PT-OP-J Posture/Palpation/Skin Start: 12/03/24 16:42 Freq: Status: Active Protocol: Document 12/05/24 09:45 MB (Rec: 12/05/24 10:10 MB [id number]) Palpation Assessment Location RLE Palpation Details Mild edema RLE, worse in the right ankle PT-OP-K Range of Motion Start: 12/03/24 16:42 Freq: Status: Active Protocol: Document 12/05/24 09:45 MB (Rec: 12/05/24 10:10 MB [id number]) Knee Goniometric Range of Motion Knee Left Patient Position Supine Comments 0-123 deg Right Patient Position Supine Comments 9-104 deg PT-OP-M Strength Start: 12/03/24 16:42 Freq: Status: Active Protocol: Document 12/05/24 09:45 MB (Rec: 12/05/24 10:10 MB [id number]) Hip Strength Hip Manual Muscle Testing Left Flexion (L2) 4+ Good+ Abduction 5 Normal Right Comments RLE edema, all MMT in supine, right knee pain and so deferred hip MMT in supine given discomfort with attempted SLR Knee Strength Knee Manual Muscle Testing Left Flexion (S2) 5 Normal Extension (L3) 5 Normal Right Comments Deferred d/t pain, unable to SLR yet, makes a quad set Ankle/Foot Strength Ankle and Foot Manual Muscle Testing Left Dorsiflexion (L4) 5 Normal Right Dorsiflexion (L4) 5 Normal Toe Strength Toe Manual Muscle Testing Left Great Toe Extension 5 Normal Right Great Toe Extension 5 Normal PT-OP-Q Treatments Start: 12/03/24 16:42 Freq: Status: Active Protocol: Document 12/12/24 09:46 MB (Rec: 12/12/24 10:36 MB [id number]) Cardio Equipment Bicycle (Upright) Duration (Minutes) 8 Seat Position 7 Other 10 Therapeutic Exercises Supine Exercises SLR Supine Exercise Name HEP and provided handout today Side bilateral Reps/Minutes To tolerance Comments Reviewed today with opposite leg bent, to work on at home APs, HS and QS Comments AROM right knee: 5-115 deg, passive extension -3 deg Manual Therapy Treatment Consent Patient gave verbal consent for manual Yes treatment Other Other Manual Treatments Pt supine and in B sidelying, palpation QL, hip flexor, glutes, hip rotators, vastus lateralis, TFL, quads and hamstrings and STM all of these and grade II rib recoil and TrP B QL, right glute min and left TFL. PT-OP-T Assessment and Plan Start: 12/03/24 16:42 Freq: Status: Active Protocol: Document 12/12/24 09:46 MB (Rec: 12/12/24 10:36 MB [id number]) Physical Therapy Assessment Rehab Potential Rehabilitation Potential Excellent Evaluation Complexity Number of Personal Factors/Comorbidities 0 Number of Body Systems Impaired 1-2 Clinical Presentation at Evaluation Stable Impairments Impairments Activity Tolerance,Balance, Coordination,Edema,Functional Activities,Functional Mobility ,Gait,Integument,Pain,Posture, ROM,Sensation,Soft Tissue Mobility,Strength,Transfers Goals 4 Impairment Right quad weakness [employer] Video Goal (LTG) Pt will perform at least 15 reps STS in 30 sec to improve functional strength and transfers. LTG Duration 8 weeks 3 Impairment Imbalance G[employer] Video Goal (LTG) Pt will perform WNLs on FGA to decrease fall risk. LTG Duration 8 weeks 2 Impairment Impaired gait with crutches [facility] Goal (LTG) Pt will gait train at least 1614 feet without AD in 6 minutes to improve community ambulation. LTG Duration 8 weeks 1 Impairment LEF score reflects 57.5% impairment [employer] Video Goal (LTG) Pt will present with LEF score reflecting no more than 25% impairment to improve function . LTG Duration 8 weeks Assessment Summary Assessment AROM right knee improved to 3- 117 deg after PT and passive extension to -2 deg. Pt tolerated treatment well and will con't towards PT plan. Physical Therapy Plan Frequency and Duration Frequency of Treatment 1-2x/wk Duration of treatment (weeks) 8 Plan of Care Start Date 12/05/24 Plan of Care End Date 02/04/25 Therapeutic Interventions Therapeutic Interventions Balance Training,Canalithic Repositioning,Coordination Training,Gait Training,Home Exercise Program,Joint Mobilizations,Manual Therapy, Neuromuscular Re-education, Patient/Caregiver Education, Self-Care/Home Management,Soft Tissue Mobilization,Taping, Therapeutic Activities, Therapeutic Exercises Next Visit Focus/Plan Next Note Type Treatment Note Next Visit Plan Start upright bike seat height 7 Manual work, consider SLS and other exercises in future treatment date
--- NOTE | 2024-12-19 10:35 | PT.OTN ---
Current Diagnoses Unilateral primary osteoarthritis, right knee (12/19/24) Pain in right knee (12/19/24) Encounter for other orthopedic aftercare (12/19/24) Physical Therapy Treatment Note PT-OP-A Visit Information Start: 12/03/24 16:42 Freq: Status: Active Protocol: Document 12/19/24 09:48 MB (Rec: 12/19/24 10:34 MB Desktop) Out-Patient Physical Therapy Visit Information Visit Information Visit Type Treatment Note Visit Note Medicare 11/28 before KX Progress note by 01/05/25 Visit Start Time 09:48 Visit Stop Time 10:28 Visit Number 3 Number of TOOLING MANAGER Visits 0 Evaluation Information Evaluation Date 12/05/24 PT-OP-B Current Condition Start: 12/03/24 16:42 Freq: Status: Active Protocol: Document 12/05/24 09:45 MB (Rec: 12/05/24 10:10 MB [id number]) Current Condition History of Current Condition Onset Date 12/03/24 Current Complaints Not yet fully independent History of Current Condition Pt underwent right TKA 12/03/24 . She has history of B THR and left TKAs. 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 Pt has compression stockings and does not like to wear compression hose. She arrives with christiano wrap donned well. Pt has a history of lumbar stenosis and herniation s/p L5 -S1 lami and decompression an L4-L5 revision. Pt has residual numbess and weakness left LE in PF and anterior story. She does not have good toe extension in left foot. Pt has B carpal tunnel surgery. PT-OP-C Subjective Start: 12/03/24 16:42 Freq: Status: Active Protocol: Document 12/19/24 09:48 MB (Rec: 12/19/24 10:34 MB Desktop) OP-PT Subjective Patient Comments Patient Comments Pt has been back on the floor doing some of her normal stretches. She is doing SLR. She is feeling looser and noticing the tension in her hips and low back and she is walking stiff in this area today. PT-OP-G Mobility & Gait Start: 12/03/24 16:42 Freq: Status: Active Protocol: Document 12/05/24 09:45 MB (Rec: 12/05/24 10:10 MB [id number]) OP Gait Assessment Comments Gait Comments Pt gait trains with B crutches or left crutch with antalgic step-through gait with decreased heel strike and functional knee flexion and extension with WB PT-OP-J Posture/Palpation/Skin Start: 12/03/24 16:42 Freq: Status: Active Protocol: Document 12/05/24 09:45 MB (Rec: 12/05/24 10:10 MB [id number]) Palpation Assessment Location RLE Palpation Details Mild edema RLE, worse in the right ankle PT-OP-K Range of Motion Start: 12/03/24 16:42 Freq: Status: Active Protocol: Document 12/05/24 09:45 MB (Rec: 12/05/24 10:10 MB [id number]) Knee Goniometric Range of Motion Knee Left Patient Position Supine Comments 0-123 deg Right Patient Position Supine Comments 9-104 deg PT-OP-M Strength Start: 12/03/24 16:42 Freq: Status: Active Protocol: Document 12/05/24 09:45 MB (Rec: 12/05/24 10:10 MB [id number]) Hip Strength Hip Manual Muscle Testing Left Flexion (L2) 4+ Good+ Abduction 5 Normal Right Comments RLE edema, all MMT in supine, right knee pain and so deferred hip MMT in supine given discomfort with attempted SLR Knee Strength Knee Manual Muscle Testing Left Flexion (S2) 5 Normal Extension (L3) 5 Normal Right Comments Deferred d/t pain, unable to SLR yet, makes a quad set Ankle/Foot Strength Ankle and Foot Manual Muscle Testing Left Dorsiflexion (L4) 5 Normal Right Dorsiflexion (L4) 5 Normal Toe Strength Toe Manual Muscle Testing Left Great Toe Extension 5 Normal Right Great Toe Extension 5 Normal PT-OP-Q Treatments Start: 12/03/24 16:42 Freq: Status: Active Protocol: Document 12/19/24 09:48 MB (Rec: 12/19/24 10:34 MB Desktop) Cardio Equipment Bicycle (Upright) Duration (Minutes) 10 Resistance 13 Seat Position 7 Therapeutic Exercises Standing Exercises SLS Standing Exercise Name HEP and handout today Comments Ed pt to practice up to 1-2 minutes at home Manual Therapy Treatment Consent Patient gave verbal consent for manual Yes treatment Other Other Manual Treatments B side lying: B rib recoil, PNF with manual assistance for pelvis and leg, TrP left QL, right QL and right rectus femoris and right leg is weaker with PNF in side lying. HS with myofascial pressure over rectus femoris today and knee moving well afterwards. PT-OP-T Assessment and Plan Start: 12/03/24 16:42 Freq: Status: Active Protocol: Document 12/19/24 09:48 MB (Rec: 12/19/24 10:34 MB Desktop) Physical Therapy Assessment Rehab Potential Rehabilitation Potential Excellent Evaluation Complexity Number of Personal Factors/Comorbidities 0 Number of Body Systems Impaired 1-2 Clinical Presentation at Evaluation Stable Impairments Impairments Activity Tolerance,Balance, Coordination,Edema,Functional Activities,Functional Mobility ,Gait,Integument,Pain,Posture, ROM,Sensation,Soft Tissue Mobility,Strength,Transfers Goals 4 Impairment Right quad weakness [facility] Goal (LTG) Pt will perform at least 15 reps STS in 30 sec to improve functional strength and transfers. LTG Duration 8 weeks 3 Impairment Imbalance Miner Placer Goal (LTG) Pt will perform WNLs on FGA to decrease fall risk. LTG Duration 8 weeks 2 Impairment Impaired gait with crutches [facility] Goal (LTG) Pt will gait train at least 1614 feet without AD in 6 minutes to improve community ambulation. LTG Duration 8 weeks 1 Impairment LEF score reflects 57.5% impairment [employer] Goal (LTG) Pt will present with LEF score reflecting no more than 25% impairment to improve function . LTG Duration 8 weeks Assessment Summary Assessment Provided handout and ed pt in backwards walking today, when she is able to start in a safe location. AROM right knee in supine: 5-129 deg, passively extension -3 deg before treatment. Overall, pt is doing well. Physical Therapy Plan Frequency and Duration Frequency of Treatment 1-2x/wk Duration of treatment (weeks) 8 Plan of Care Start Date 12/05/24 Plan of Care End Date 02/04/25 Therapeutic Interventions Therapeutic Interventions Balance Training,Canalithic Repositioning,Coordination Training,Gait Training,Home Exercise Program,Joint Mobilizations,Manual Therapy, Neuromuscular Re-education, Patient/Caregiver Education, Self-Care/Home Management,Soft Tissue Mobilization,Taping, Therapeutic Activities, Therapeutic Exercises Next Visit Focus/Plan Next Note Type Treatment Note Next Visit Plan Start upright bike seat height 7 Similar: manual work and other exercises in future treatment date, ongoing PNF in side lying
--- NOTE | 2024-12-26 09:04 | PT.OTN ---
Current Diagnoses Unilateral primary osteoarthritis, right knee (12/26/24) Pain in right knee (12/26/24) Encounter for other orthopedic aftercare (12/26/24) Physical Therapy Treatment Note PT-OP-A Visit Information Start: 12/03/24 16:42 Freq: Status: Active Protocol: Document 12/26/24 08:17 MB (Rec: 12/26/24 09:02 MB Desktop) Out-Patient Physical Therapy Visit Information Visit Information Visit Type Treatment Note Visit Note Medicare 11/28 before KX Progress note by 01/05/25 Visit Start Time 08:17 Visit Stop Time 08:57 Visit Number 4 Number of ACCOUNTS RECEIVABLE ASSISTANT Visits 0 Evaluation Information Evaluation Date 12/05/24 PT-OP-B Current Condition Start: 12/03/24 16:42 Freq: Status: Active Protocol: Document 12/05/24 09:45 MB (Rec: 12/05/24 10:10 MB [id number]) Current Condition History of Current Condition Onset Date 12/03/24 Current Complaints Not yet fully independent History of Current Condition Pt underwent right TKA 12/03/24 . She has history of B THR and left TKAs. 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 Pt has compression stockings and does not like to wear compression hose. She arrives with christiano wrap donned well. Pt has a history of lumbar stenosis and herniation s/p L5 -S1 lami and decompression an L4-L5 revision. Pt has residual numbess and weakness left LE in PF and anterior story. She does not have good toe extension in left foot. Pt has B carpal tunnel surgery. PT-OP-C Subjective Start: 12/03/24 16:42 Freq: Status: Active Protocol: Document 12/26/24 08:17 MB (Rec: 12/26/24 09:02 MB Desktop) OP-PT Subjective Patient Comments Patient Comments Pt reports notable left hip stiffness that was lingering from THR in 2023 and this is affecting gait. PT-OP-G Mobility & Gait Start: 12/03/24 16:42 Freq: Status: Active Protocol: Document 12/05/24 09:45 MB (Rec: 12/05/24 10:10 MB [id number]) OP Gait Assessment Comments Gait Comments Pt gait trains with B crutches or left crutch with antalgic step-through gait with decreased heel strike and functional knee flexion and extension with WB PT-OP-J Posture/Palpation/Skin Start: 12/03/24 16:42 Freq: Status: Active Protocol: Document 12/05/24 09:45 MB (Rec: 12/05/24 10:10 MB [id number]) Palpation Assessment Location RLE Palpation Details Mild edema RLE, worse in the right ankle PT-OP-K Range of Motion Start: 12/03/24 16:42 Freq: Status: Active Protocol: Document 12/05/24 09:45 MB (Rec: 12/05/24 10:10 MB [id number]) Knee Goniometric Range of Motion Knee Left Patient Position Supine Comments 0-123 deg Right Patient Position Supine Comments 9-104 deg PT-OP-M Strength Start: 12/03/24 16:42 Freq: Status: Active Protocol: Document 12/05/24 09:45 MB (Rec: 12/05/24 10:10 MB [id number]) Hip Strength Hip Manual Muscle Testing Left Flexion (L2) 4+ Good+ Abduction 5 Normal Right Comments RLE edema, all MMT in supine, right knee pain and so deferred hip MMT in supine given discomfort with attempted SLR Knee Strength Knee Manual Muscle Testing Left Flexion (S2) 5 Normal Extension (L3) 5 Normal Right Comments Deferred d/t pain, unable to SLR yet, makes a quad set Ankle/Foot Strength Ankle and Foot Manual Muscle Testing Left Dorsiflexion (L4) 5 Normal Right Dorsiflexion (L4) 5 Normal Toe Strength Toe Manual Muscle Testing Left Great Toe Extension 5 Normal Right Great Toe Extension 5 Normal PT-OP-Q Treatments Start: 12/03/24 16:42 Freq: Status: Active Protocol: Document 12/26/24 08:17 MB (Rec: 12/26/24 09:02 MB Desktop) Cardio Equipment Bicycle (Upright) Duration (Minutes) 10 Resistance 13 Seat Position 7 Manual Therapy Treatment Consent Patient gave verbal consent for manual Yes treatment Other Other Manual Treatments B side lying: B rib recoil, PNF with manual assistance for pelvis and leg, TrP left QL, right QL and right vastus lateralis and right fibularis longus. L QL and that quadrant is very tight. TrP and STM right quadratus plantaris, STM on the left. PT-OP-T Assessment and Plan Start: 12/03/24 16:42 Freq: Status: Active Protocol: Document 12/26/24 08:17 MB (Rec: 12/26/24 09:02 MB Desktop) Physical Therapy Assessment Rehab Potential Rehabilitation Potential Excellent Evaluation Complexity Number of Personal Factors/Comorbidities 0 Number of Body Systems Impaired 1-2 Clinical Presentation at Evaluation Stable Impairments Impairments Activity Tolerance,Balance, Coordination,Edema,Functional Activities,Functional Mobility ,Gait,Integument,Pain,Posture, ROM,Sensation,Soft Tissue Mobility,Strength,Transfers Goals 4 Impairment Right quad weakness Pulpwood Dealer Goal (LTG) Pt will perform at least 15 reps STS in 30 sec to improve functional strength and transfers. LTG Duration 8 weeks 3 Impairment Imbalance [employer] Dealer Goal (LTG) Pt will perform WNLs on FGA to decrease fall risk. LTG Duration 8 weeks 2 Impairment Impaired gait with crutches [employer] Dealer Goal (LTG) Pt will gait train at least 1614 feet without AD in 6 minutes to improve community ambulation. LTG Duration 8 weeks 1 Impairment LEF score reflects 57.5% impairment [employer] Dealer Goal (LTG) Pt will present with LEF score reflecting no more than 25% impairment to improve function . LTG Duration 8 weeks Assessment Summary Assessment Pt arrives with gait with stiffness at left SI joint that is affecting gait pattern and so PT addresses this to assist gait pattern and efficiency and ultimately with right knee improvement, heel strike and toe push off. Bruising looks great as well as incision and all of steri strips are now off. QL tends to re-tighten. AROM supine right knee: 2-132 deg, -1 deg dangling achilles through left toes. 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 Physical Therapy Plan Frequency and Duration Frequency of Treatment 1-2x/wk Duration of treatment (weeks) 8 Plan of Care Start Date 12/05/24 Plan of Care End Date 02/04/25 Therapeutic Interventions Therapeutic Interventions Balance Training,Canalithic Repositioning,Coordination Training,Gait Training,Home Exercise Program,Joint Mobilizations,Manual Therapy, Neuromuscular Re-education, Patient/Caregiver Education, Self-Care/Home Management,Soft Tissue Mobilization,Taping, Therapeutic Activities, Therapeutic Exercises Next Visit Focus/Plan Next Note Type Treatment Note Next Visit Plan Start upright bike seat height 7 doorway stretches Similar: manual work and other exercises in future treatment date, ongoing PNF in side lying
--- NOTE | 2025-01-09 12:55 | PT.OTN ---
Current Diagnoses Unilateral primary osteoarthritis, right knee (01/09/25) Pain in right knee (01/09/25) Encounter for other orthopedic aftercare (01/09/25) Physical Therapy Treatment Note PT-OP-A Visit Information Start: 12/03/24 16:42 Freq: Status: Active Protocol: Document 01/09/25 11:30 MB (Rec: 01/09/25 11:43 MB Desktop) Out-Patient Physical Therapy Visit Information Visit Information Visit Type Progress Note Visit Start Time 11:30 Visit Stop Time 12:10 Visit Number 5 Number of PRESS MAINTAINER Visits 0 Evaluation Information Evaluation Date 12/05/24 PT-OP-B Current Condition Start: 12/03/24 16:42 Freq: Status: Active Protocol: Document 12/05/24 09:45 MB (Rec: 12/05/24 10:10 MB [id number]) Current Condition History of Current Condition Onset Date 12/03/24 Current Complaints Not yet fully independent History of Current Condition Pt underwent right TKA 12/03/24 . She has history of B THR and left TKAs. 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 Pt has compression stockings and does not like to wear compression hose. She arrives with christiano wrap donned well. Pt has a history of lumbar stenosis and herniation s/p L5 -S1 lami and decompression an L4-L5 revision. Pt has residual numbess and weakness left LE in PF and anterior story. She does not have good toe extension in left foot. Pt has B carpal tunnel surgery. PT-OP-C Subjective Start: 12/03/24 16:42 Freq: Status: Active Protocol: Document 01/09/25 11:30 MB (Rec: 01/09/25 11:43 MB Desktop) OP-PT Subjective Patient Comments Patient Comments What's mostly bothering her distal quads and quad tendon. PT-OP-G Mobility & Gait Start: 12/03/24 16:42 Freq: Status: Active Protocol: Document 12/05/24 09:45 MB (Rec: 12/05/24 10:10 MB [id number]) OP Gait Assessment Comments Gait Comments Pt gait trains with B crutches or left crutch with antalgic step-through gait with decreased heel strike and functional knee flexion and extension with WB PT-OP-J Posture/Palpation/Skin Start: 12/03/24 16:42 Freq: Status: Active Protocol: Document 12/05/24 09:45 MB (Rec: 12/05/24 10:10 MB [id number]) Palpation Assessment Location RLE Palpation Details Mild edema RLE, worse in the right ankle PT-OP-K Range of Motion Start: 12/03/24 16:42 Freq: Status: Active Protocol: Document 12/05/24 09:45 MB (Rec: 12/05/24 10:10 MB [id number]) Knee Goniometric Range of Motion Knee Left Patient Position Supine Comments 0-123 deg Right Patient Position Supine Comments 9-104 deg PT-OP-M Strength Start: 12/03/24 16:42 Freq: Status: Active Protocol: Document 12/05/24 09:45 MB (Rec: 12/05/24 10:10 MB [id number]) Hip Strength Hip Manual Muscle Testing Left Flexion (L2) 4+ Good+ Abduction 5 Normal Right Comments RLE edema, all MMT in supine, right knee pain and so deferred hip MMT in supine given discomfort with attempted SLR Knee Strength Knee Manual Muscle Testing Left Flexion (S2) 5 Normal Extension (L3) 5 Normal Right Comments Deferred d/t pain, unable to SLR yet, makes a quad set Ankle/Foot Strength Ankle and Foot Manual Muscle Testing Left Dorsiflexion (L4) 5 Normal Right Dorsiflexion (L4) 5 Normal Toe Strength Toe Manual Muscle Testing Left Great Toe Extension 5 Normal Right Great Toe Extension 5 Normal PT-OP-Q Treatments Start: 12/03/24 16:42 Freq: Status: Active Protocol: Document 01/09/25 11:30 MB (Rec: 01/09/25 11:43 MB Desktop) Cardio Equipment Bicycle (Upright) Duration (Minutes) 10 Resistance 13 Seat Position 7 Therapeutic Exercises Supine Exercises AROM right knee Comments In supine today: 0-136 achilles dangles between opp toes Pelvic realignment exercises Supine Exercise Name HEP and handout given today Equipment Used Blue ball Reps/Minutes 5 reps, 3 sec hold all exercises in order Comments Feet together ball squeeze iso , knee opp ankle iso, thigh press down iso Sitting Exercises 30 sec STS Equipment Used Mesh chair Comments 9 reps and pt c/o right knee pain. Gait Training Gait Activity 6MWT Comments Pt gait trains 1416 feet in 6 minutes with higher right pelvis and decreased right knee range Manual Therapy Treatment Consent Patient gave verbal consent for manual Yes treatment Neuro Re-Education Treatment Balance Activities FGA Comments FGA score is 22/30 PT-OP-T Assessment and Plan Start: 12/03/24 16:42 Freq: Status: Active Protocol: Document 01/09/25 11:30 MB (Rec: 01/09/25 11:43 MB Desktop) Physical Therapy Assessment Rehab Potential Rehabilitation Potential Excellent Evaluation Complexity Number of Personal Factors/Comorbidities 0 Number of Body Systems Impaired 1-2 Clinical Presentation at Evaluation Stable Impairments Impairments Activity Tolerance,Balance, Coordination,Edema,Functional Activities,Functional Mobility ,Gait,Integument,Pain,Posture, ROM,Sensation,Soft Tissue Mobility,Strength,Transfers Goals 4 Impairment Right quad weakness [employer] Manager Architect Goal (LTG) Pt will perform at least 15 reps STS in 30 sec to improve functional strength and transfers. 01/09/25: Pt performs 9 reps STS in 30 sec LTG Duration 8 weeks 3 Impairment Imbalance Senior Care Goal (LTG) Pt will perform WNLs on FGA to decrease fall risk. 01/09/25: FGA score is 22/30 LTG Duration 8 weeks 2 Impairment Impaired gait with crutches Senior Care Goal (LTG) Pt will gait train at least 1614 feet without AD in 6 minutes to improve community ambulation. 01/09/25: Pt gait trains 1416 feet in 6 minutes with high right pelvis and some decreased right knee motion LTG Duration 8 weeks 1 Impairment LEF score reflects 57.5% impairment [employer] Manager Architect Goal (LTG) Pt will present with LEF score reflecting no more than 25% impairment to improve function . 01/09/25: LEF score is much better and reflects 30% impairment LTG Duration 8 weeks Physical Therapy Plan Frequency and Duration Frequency of Treatment 1-2x/wk Duration of treatment (weeks) 8 Plan of Care Start Date 12/05/24 Plan of Care End Date 02/04/25 Therapeutic Interventions Therapeutic Interventions Balance Training,Canalithic Repositioning,Coordination Training,Gait Training,Home Exercise Program,Joint Mobilizations,Manual Therapy, Neuromuscular Re-education, Patient/Caregiver Education, Self-Care/Home Management,Soft Tissue Mobilization,Taping, Therapeutic Activities, Therapeutic Exercises Next Visit Focus/Plan Next Note Type Treatment Note Next Visit Plan Start upright bike seat height 7, consider wall slides and backwards and side steps with band Similar: manual work and other exercises in future treatment date, ongoing PNF in side lying
--- NOTE | 2025-01-09 13:38 | PT.OTN ---
Current Diagnoses Unilateral primary osteoarthritis, right knee (01/09/25) Pain in right knee (01/09/25) Encounter for other orthopedic aftercare (01/09/25) Physical Therapy Treatment Note PT-OP-A Visit Information Start: 12/03/24 16:42 Freq: Status: Active Protocol: Document 01/09/25 11:30 MB (Rec: 01/09/25 11:43 MB Desktop) Out-Patient Physical Therapy Visit Information Visit Information Visit Type Progress Note Visit Start Time 11:30 Visit Stop Time 12:10 Visit Number 5 Number of ADVANCED PRACTICE RN Visits 0 Evaluation Information Evaluation Date 12/05/24 PT-OP-B Current Condition Start: 12/03/24 16:42 Freq: Status: Active Protocol: Document 12/05/24 09:45 MB (Rec: 12/05/24 10:10 MB [id number]) Current Condition History of Current Condition Onset Date 12/03/24 Current Complaints Not yet fully independent History of Current Condition Pt underwent right TKA 12/03/24 . She has history of B THR and left TKAs. 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 Pt has compression stockings and does not like to wear compression hose. She arrives with christiano wrap donned well. Pt has a history of lumbar stenosis and herniation s/p L5 -S1 lami and decompression an L4-L5 revision. Pt has residual numbess and weakness left LE in PF and anterior story. She does not have good toe extension in left foot. Pt has B carpal tunnel surgery. PT-OP-C Subjective Start: 12/03/24 16:42 Freq: Status: Active Protocol: Document 01/09/25 11:30 MB (Rec: 01/09/25 11:43 MB Desktop) OP-PT Subjective Patient Comments Patient Comments What's mostly bothering her distal quads and quad tendon. PT-OP-G Mobility & Gait Start: 12/03/24 16:42 Freq: Status: Active Protocol: Document 12/05/24 09:45 MB (Rec: 12/05/24 10:10 MB [id number]) OP Gait Assessment Comments Gait Comments Pt gait trains with B crutches or left crutch with antalgic step-through gait with decreased heel strike and functional knee flexion and extension with WB PT-OP-J Posture/Palpation/Skin Start: 12/03/24 16:42 Freq: Status: Active Protocol: Document 12/05/24 09:45 MB (Rec: 12/05/24 10:10 MB [id number]) Palpation Assessment Location RLE Palpation Details Mild edema RLE, worse in the right ankle PT-OP-K Range of Motion Start: 12/03/24 16:42 Freq: Status: Active Protocol: Document 12/05/24 09:45 MB (Rec: 12/05/24 10:10 MB [id number]) Knee Goniometric Range of Motion Knee Left Patient Position Supine Comments 0-123 deg Right Patient Position Supine Comments 9-104 deg PT-OP-M Strength Start: 12/03/24 16:42 Freq: Status: Active Protocol: Document 12/05/24 09:45 MB (Rec: 12/05/24 10:10 MB [id number]) Hip Strength Hip Manual Muscle Testing Left Flexion (L2) 4+ Good+ Abduction 5 Normal Right Comments RLE edema, all MMT in supine, right knee pain and so deferred hip MMT in supine given discomfort with attempted SLR Knee Strength Knee Manual Muscle Testing Left Flexion (S2) 5 Normal Extension (L3) 5 Normal Right Comments Deferred d/t pain, unable to SLR yet, makes a quad set Ankle/Foot Strength Ankle and Foot Manual Muscle Testing Left Dorsiflexion (L4) 5 Normal Right Dorsiflexion (L4) 5 Normal Toe Strength Toe Manual Muscle Testing Left Great Toe Extension 5 Normal Right Great Toe Extension 5 Normal PT-OP-Q Treatments Start: 12/03/24 16:42 Freq: Status: Active Protocol: Document 01/09/25 11:30 MB (Rec: 01/09/25 11:43 MB Desktop) Cardio Equipment Bicycle (Upright) Duration (Minutes) 10 Resistance 13 Seat Position 7 Therapeutic Exercises Supine Exercises AROM right knee Comments In supine today: 0-136 achilles dangles between opp toes Pelvic realignment exercises Supine Exercise Name HEP and handout given today Equipment Used Blue ball Reps/Minutes 5 reps, 3 sec hold all exercises in order Comments Feet together ball squeeze iso , knee opp ankle iso, thigh press down iso Sitting Exercises 30 sec STS Equipment Used Mesh chair Comments 9 reps and pt c/o right knee pain. Gait Training Gait Activity 6MWT Comments Pt gait trains 1416 feet in 6 minutes with higher right pelvis and decreased right knee range Manual Therapy Treatment Consent Patient gave verbal consent for manual Yes treatment Other Other Manual Treatments Pt supine: STM and TrP right rectus femoris, black KT for support with c strip under patella and I strips for medial and lateral knee Neuro Re-Education Treatment Balance Activities FGA Comments FGA score is 22/30 PT-OP-T Assessment and Plan Start: 12/03/24 16:42 Freq: Status: Active Protocol: Document 01/09/25 11:30 MB (Rec: 01/09/25 11:43 MB Desktop) Physical Therapy Assessment Rehab Potential Rehabilitation Potential Excellent Evaluation Complexity Number of Personal Factors/Comorbidities 0 Number of Body Systems Impaired 1-2 Clinical Presentation at Evaluation Stable Impairments Impairments Activity Tolerance,Balance, Coordination,Edema,Functional Activities,Functional Mobility ,Gait,Integument,Pain,Posture, ROM,Sensation,Soft Tissue Mobility,Strength,Transfers Goals 4 Impairment Right quad weakness Group Home Goal (LTG) Pt will perform at least 15 reps STS in 30 sec to improve functional strength and transfers. 01/09/25: Pt performs 9 reps STS in 30 sec LTG Duration 8 weeks 3 Impairment Imbalance Group Home Goal (LTG) Pt will perform WNLs on FGA to decrease fall risk. 01/09/25: FGA score is 22/30 LTG Duration 8 weeks 2 Impairment Impaired gait with crutches Extract Puller Goal (LTG) Pt will gait train at least 1614 feet without AD in 6 minutes to improve community ambulation. 01/09/25: Pt gait trains 1416 feet in 6 minutes with high right pelvis and some decreased right knee motion LTG Duration 8 weeks 1 Impairment LEF score reflects 57.5% impairment Extract Puller Goal (LTG) Pt will present with LEF score reflecting no more than 25% impairment to improve function . 01/09/25: LEF score is much better and reflects 30% impairment LTG Duration 8 weeks Assessment Summary Assessment Pt is doing great with right knee ROM. She has some gait changes with 6MWT including high and tight right pelvis and knee and she also has some balance changes with FGA testing. She is limited in 30 sec STS for her age and reports right knee discomfort today. She does have some right leg swelling today. Con' t PT to maximize potential and goals. Physical Therapy Plan Frequency and Duration Frequency of Treatment 1x/Week Duration of treatment (weeks) 4 Plan of Care Start Date 01/09/25 Plan of Care End Date 02/06/25 Therapeutic Interventions Therapeutic Interventions Balance Training,Canalithic Repositioning,Coordination Training,Gait Training,Home Exercise Program,Joint Mobilizations,Manual Therapy, Neuromuscular Re-education, Patient/Caregiver Education, Self-Care/Home Management,Soft Tissue Mobilization,Taping, Therapeutic Activities, Therapeutic Exercises Next Visit Focus/Plan Next Note Type Treatment Note Next Visit Plan Start upright bike seat height 7, consider wall slides and backwards and side steps with band Similar: manual work and other exercises in future treatment date, ongoing PNF in side lying
--- NOTE | 2025-01-09 13:38 | PT.OPPOC ---
Physical, Occupational & Speech Therapy At [facility] Current Diagnoses Unilateral primary osteoarthritis, right knee (01/09/25) Pain in right knee (01/09/25) Encounter for other orthopedic aftercare (01/09/25) Visit Care Team Role Provider Type Nelsy Lee DO Family Provider Physician Primary Care Provider Specialty: Medical Address: [address] [place] [address], [address], [place], [address] Email: [email or web address] Rayo Rojo MD Attending Provider Non-Staff Referring Provider Specialty: Orthopedics Orthopedic Surgery Address: [address] [place] [address], [id number] Email: Plan Of Care PT-OP-B Current Condition Start: 12/03/24 16:42 Freq: Status: Active Protocol: Document 12/05/24 09:45 MB (Rec: 12/05/24 10:10 MB [id number]) Current Condition History of Current Condition Onset Date 12/03/24 Current Complaints Not yet fully independent History of Current Condition Pt underwent right TKA 12/03/24 . She has history of B THR and left TKAs. 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 Pt has compression stockings and does not like to wear compression hose. She arrives with christiano wrap donned well. Pt has a history of lumbar stenosis and herniation s/p L5 -S1 lami and decompression an L4-L5 revision. Pt has residual numbess and weakness left LE in PF and anterior story. She does not have good toe extension in left foot. Pt has B carpal tunnel surgery. PT-OP-T Assessment and Plan Start: 12/03/24 16:42 Freq: Status: Active Protocol: Document 01/09/25 11:30 MB (Rec: 01/09/25 11:43 MB Desktop) Physical Therapy Assessment Rehab Potential Rehabilitation Potential Excellent Evaluation Complexity Number of Personal Factors/Comorbidities 0 Number of Body Systems Impaired 1-2 Clinical Presentation at Evaluation Stable Impairments Impairments Activity Tolerance,Balance, Coordination,Edema,Functional Activities,Functional Mobility ,Gait,Integument,Pain,Posture, ROM,Sensation,Soft Tissue Mobility,Strength,Transfers Goals 4 Impairment Right quad weakness [facility] Goal (LTG) Pt will perform at least 15 reps STS in 30 sec to improve functional strength and transfers. 01/09/25: Pt performs 9 reps STS in 30 sec LTG Duration 8 weeks 3 Impairment Imbalance [facility] Goal (LTG) Pt will perform WNLs on FGA to decrease fall risk. 01/09/25: FGA score is 22/30 LTG Duration 8 weeks 2 Impairment Impaired gait with crutches Special Services Supervisor Goal (LTG) Pt will gait train at least 1614 feet without AD in 6 minutes to improve community ambulation. 01/09/25: Pt gait trains 1416 feet in 6 minutes with high right pelvis and some decreased right knee motion LTG Duration 8 weeks 1 Impairment LEF score reflects 57.5% impairment Special Services Supervisor Goal (LTG) Pt will present with LEF score reflecting no more than 25% impairment to improve function . 01/09/25: LEF score is much better and reflects 30% impairment LTG Duration 8 weeks Assessment Summary Assessment Pt is doing great with right knee ROM. She has some gait changes with 6MWT including high and tight right pelvis and knee and she also has some balance changes with FGA testing. She is limited in 30 sec STS for her age and reports right knee discomfort today. She does have some right leg swelling today. Con' t PT to maximize potential and goals. Physical Therapy Plan Frequency and Duration Frequency of Treatment 1x/Week Duration of treatment (weeks) 4 Plan of Care Start Date 01/09/25 Plan of Care End Date 02/06/25 Therapeutic Interventions Therapeutic Interventions Balance Training,Canalithic Repositioning,Coordination Training,Gait Training,Home Exercise Program,Joint Mobilizations,Manual Therapy, Neuromuscular Re-education, Patient/Caregiver Education, Self-Care/Home Management,Soft Tissue Mobilization,Taping, Therapeutic Activities, Therapeutic Exercises Next Visit Focus/Plan Next Note Type Treatment Note Next Visit Plan Start upright bike seat height 7, consider wall slides and backwards and side steps with band Similar: manual work and other exercises in future treatment date, ongoing PNF in side lying Plan of Care Dates Plan of Care Start Date 01/09/25 Plan of Care End Date 02/06/25 Electronically Signed by: Mariah Chaney, PT 01/09/25 1338 If you are in agreement with this Plan of Care, please return a signed and dated copy. I have reviewed this Plan of Care and certify that the skilled therapy services above are required to meet the patient?s needs. Physician Signature Date Printed Name and Credentials Clinical Instructor Signature Printed Name and Credentials
--- NOTE | 2025-01-16 10:33 | PT.OTN ---
Current Diagnoses Unilateral primary osteoarthritis, right knee (01/16/25) Pain in right knee (01/16/25) Encounter for other orthopedic aftercare (01/16/25) Physical Therapy Treatment Note PT-OP-A Visit Information Start: 12/03/24 16:42 Freq: Status: Active Protocol: Document 01/16/25 09:47 MB (Rec: 01/16/25 10:33 MB Desktop) Out-Patient Physical Therapy Visit Information Visit Information Visit Type Treatment Note Visit Note Medicare 02/28 before KX Visit Start Time 09:47 Visit Stop Time 10:27 Visit Number 6 Number of MDM DEVELOPER Visits 0 Evaluation Information Evaluation Date 12/05/24 PT-OP-B Current Condition Start: 12/03/24 16:42 Freq: Status: Active Protocol: Document 12/05/24 09:45 MB (Rec: 12/05/24 10:10 MB [id number]) Current Condition History of Current Condition Onset Date 12/03/24 Current Complaints Not yet fully independent History of Current Condition Pt underwent right TKA 12/03/24 . She has history of B THR and left TKAs. 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 Pt has compression stockings and does not like to wear compression hose. She arrives with christiano wrap donned well. Pt has a history of lumbar stenosis and herniation s/p L5 -S1 lami and decompression an L4-L5 revision. Pt has residual numbess and weakness left LE in PF and anterior story. She does not have good toe extension in left foot. Pt has B carpal tunnel surgery. PT-OP-C Subjective Start: 12/03/24 16:42 Freq: Status: Active Protocol: Document 01/16/25 09:47 MB (Rec: 01/16/25 10:33 MB Desktop) OP-PT Subjective Patient Comments Patient Comments Pt rides to PT appointment on her e-bike and she arrives early to bike before treatment . The 30 sec STS killed her as far as hip and knee soreness. PT-OP-G Mobility & Gait Start: 12/03/24 16:42 Freq: Status: Active Protocol: Document 12/05/24 09:45 MB (Rec: 12/05/24 10:10 MB [id number]) OP Gait Assessment Comments Gait Comments Pt gait trains with B crutches or left crutch with antalgic step-through gait with decreased heel strike and functional knee flexion and extension with WB PT-OP-J Posture/Palpation/Skin Start: 12/03/24 16:42 Freq: Status: Active Protocol: Document 12/05/24 09:45 MB (Rec: 12/05/24 10:10 MB [id number]) Palpation Assessment Location RLE Palpation Details Mild edema RLE, worse in the right ankle PT-OP-K Range of Motion Start: 12/03/24 16:42 Freq: Status: Active Protocol: Document 12/05/24 09:45 MB (Rec: 12/05/24 10:10 MB [id number]) Knee Goniometric Range of Motion Knee Left Patient Position Supine Comments 0-123 deg Right Patient Position Supine Comments 9-104 deg PT-OP-M Strength Start: 12/03/24 16:42 Freq: Status: Active Protocol: Document 12/05/24 09:45 MB (Rec: 12/05/24 10:10 MB [id number]) Hip Strength Hip Manual Muscle Testing Left Flexion (L2) 4+ Good+ Abduction 5 Normal Right Comments RLE edema, all MMT in supine, right knee pain and so deferred hip MMT in supine given discomfort with attempted SLR Knee Strength Knee Manual Muscle Testing Left Flexion (S2) 5 Normal Extension (L3) 5 Normal Right Comments Deferred d/t pain, unable to SLR yet, makes a quad set Ankle/Foot Strength Ankle and Foot Manual Muscle Testing Left Dorsiflexion (L4) 5 Normal Right Dorsiflexion (L4) 5 Normal Toe Strength Toe Manual Muscle Testing Left Great Toe Extension 5 Normal Right Great Toe Extension 5 Normal PT-OP-Q Treatments Start: 12/03/24 16:42 Freq: Status: Active Protocol: Document 01/16/25 09:47 MB (Rec: 01/16/25 10:33 MB Desktop) Therapeutic Exercises Standing Exercises Wall slides Standing Exercise Name HEP and handouts today Comments Many reps and cues for form, counting slow up and down Double band bacward and side stepping Standing Exercise Name HEP and handouts today Comments Many reps and cues for form Manual Therapy Treatment Consent Patient gave verbal consent for manual Yes treatment Other Other Manual Treatments Pt supine: STM posterior right knee hamstrings, other muscle attachments, STM and positional release right quads , TFL, TrP right rectus femoris, STM vastus lateralis, Trp right TFL, STM right gastroc soleus and plantar fascia and quadratus plantaris PT-OP-T Assessment and Plan Start: 12/03/24 16:42 Freq: Status: Active Protocol: Document 01/16/25 09:47 MB (Rec: 01/16/25 10:33 MB Desktop) Physical Therapy Assessment Rehab Potential Rehabilitation Potential Excellent Evaluation Complexity Number of Personal Factors/Comorbidities 0 Number of Body Systems Impaired 1-2 Clinical Presentation at Evaluation Stable Impairments Impairments Activity Tolerance,Balance, Coordination,Edema,Functional Activities,Functional Mobility ,Gait,Integument,Pain,Posture, ROM,Sensation,Soft Tissue Mobility,Strength,Transfers Goals 4 Impairment Right quad weakness [facility] Goal (LTG) Pt will perform at least 15 reps STS in 30 sec to improve functional strength and transfers. 01/09/25: Pt performs 9 reps STS in 30 sec LTG Duration 8 weeks 3 Impairment Imbalance Shampoo Person Goal (LTG) Pt will perform WNLs on FGA to decrease fall risk. 01/09/25: FGA score is 22/30 LTG Duration 8 weeks 2 Impairment Impaired gait with crutches Shampoo Person Goal (LTG) Pt will gait train at least 1614 feet without AD in 6 minutes to improve community ambulation. 01/09/25: Pt gait trains 1416 feet in 6 minutes with high right pelvis and some decreased right knee motion LTG Duration 8 weeks 1 Impairment LEF score reflects 57.5% impairment [facility] Goal (LTG) Pt will present with LEF score reflecting no more than 25% impairment to improve function . 01/09/25: LEF score is much better and reflects 30% impairment LTG Duration 8 weeks Assessment Summary Assessment D/cd STS goal since pt had so much pain. Physical Therapy Plan Frequency and Duration Frequency of Treatment 1x/Week Duration of treatment (weeks) 4 Plan of Care Start Date 01/09/25 Plan of Care End Date 02/06/25 Therapeutic Interventions Therapeutic Interventions Balance Training,Canalithic Repositioning,Coordination Training,Gait Training,Home Exercise Program,Joint Mobilizations,Manual Therapy, Neuromuscular Re-education, Patient/Caregiver Education, Self-Care/Home Management,Soft Tissue Mobilization,Taping, Therapeutic Activities, Therapeutic Exercises Next Visit Focus/Plan Next Note Type Treatment Note Next Visit Plan Start upright bike seat height 7 Similar: manual work and other exercises in future treatment date, ongoing PNF in side lying
--- NOTE | 2025-01-23 10:33 | PT.OTN ---
Current Diagnoses Unilateral primary osteoarthritis, right knee (01/23/25) Pain in right knee (01/23/25) Encounter for other orthopedic aftercare (01/23/25) Physical Therapy Treatment Note PT-OP-A Visit Information Start: 12/03/24 16:42 Freq: Status: Active Protocol: Document 01/23/25 09:41 MB (Rec: 01/23/25 10:33 MB Desktop) Out-Patient Physical Therapy Visit Information Visit Information Visit Type Treatment Note Visit Note Medicare 03/30 before KX Visit Start Time 09:41 Visit Stop Time 10:21 Visit Number 7 Number of STRAPPING MACHINE TENDER Visits 0 Evaluation Information Evaluation Date 12/05/24 PT-OP-B Current Condition Start: 12/03/24 16:42 Freq: Status: Active Protocol: Document 12/05/24 09:45 MB (Rec: 12/05/24 10:10 MB [id number]) Current Condition History of Current Condition Onset Date 12/03/24 Current Complaints Not yet fully independent History of Current Condition Pt underwent right TKA 12/03/24 . She has history of B THR and left TKAs. 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 Pt has compression stockings and does not like to wear compression hose. She arrives with christiano wrap donned well. Pt has a history of lumbar stenosis and herniation s/p L5 -S1 lami and decompression an L4-L5 revision. Pt has residual numbess and weakness left LE in PF and anterior story. She does not have good toe extension in left foot. Pt has B carpal tunnel surgery. PT-OP-C Subjective Start: 12/03/24 16:42 Freq: Status: Active Protocol: Document 01/23/25 09:41 MB (Rec: 01/23/25 10:33 MB Desktop) OP-PT Subjective Patient Comments Patient Comments Pt did not do band exercises over her trip to [place]. Pt is doing everything like she was doing pre-op. The distal quad is still bothering her. PT-OP-G Mobility & Gait Start: 12/03/24 16:42 Freq: Status: Active Protocol: Document 12/05/24 09:45 MB (Rec: 12/05/24 10:10 MB [id number]) OP Gait Assessment Comments Gait Comments Pt gait trains with B crutches or left crutch with antalgic step-through gait with decreased heel strike and functional knee flexion and extension with WB PT-OP-J Posture/Palpation/Skin Start: 12/03/24 16:42 Freq: Status: Active Protocol: Document 12/05/24 09:45 MB (Rec: 12/05/24 10:10 MB [id number]) Palpation Assessment Location RLE Palpation Details Mild edema RLE, worse in the right ankle PT-OP-K Range of Motion Start: 12/03/24 16:42 Freq: Status: Active Protocol: Document 12/05/24 09:45 MB (Rec: 12/05/24 10:10 MB [id number]) Knee Goniometric Range of Motion Knee Left Patient Position Supine Comments 0-123 deg Right Patient Position Supine Comments 9-104 deg PT-OP-M Strength Start: 12/03/24 16:42 Freq: Status: Active Protocol: Document 12/05/24 09:45 MB (Rec: 12/05/24 10:10 MB [id number]) Hip Strength Hip Manual Muscle Testing Left Flexion (L2) 4+ Good+ Abduction 5 Normal Right Comments RLE edema, all MMT in supine, right knee pain and so deferred hip MMT in supine given discomfort with attempted SLR Knee Strength Knee Manual Muscle Testing Left Flexion (S2) 5 Normal Extension (L3) 5 Normal Right Comments Deferred d/t pain, unable to SLR yet, makes a quad set Ankle/Foot Strength Ankle and Foot Manual Muscle Testing Left Dorsiflexion (L4) 5 Normal Right Dorsiflexion (L4) 5 Normal Toe Strength Toe Manual Muscle Testing Left Great Toe Extension 5 Normal Right Great Toe Extension 5 Normal PT-OP-Q Treatments Start: 12/03/24 16:42 Freq: Status: Active Protocol: Document 01/23/25 09:41 MB (Rec: 01/23/25 10:33 MB Desktop) Cardio Equipment Bicycle (Upright) Duration (Minutes) 10 Resistance 13 Seat Position 7 Manual Therapy Treatment Consent Patient gave verbal consent for manual Yes treatment Other Other Manual Treatments Pt supine: STM right TFL and rectus and TrP right rectus medial and lateral sides of muscle; pt in B side lying: B rib recoil for rib mobility, paraspinal and QL mobility, STM B hip rotators and glutes, TFL left, B PNF for pelvis and leg mobility and function, TrP right QL PT-OP-T Assessment and Plan Start: 12/03/24 16:42 Freq: Status: Active Protocol: Document 01/23/25 09:41 MB (Rec: 01/23/25 10:33 MB Desktop) Physical Therapy Assessment Rehab Potential Rehabilitation Potential Excellent Evaluation Complexity Number of Personal Factors/Comorbidities 0 Number of Body Systems Impaired 1-2 Clinical Presentation at Evaluation Stable Impairments Impairments Activity Tolerance,Balance, Coordination,Edema,Functional Activities,Functional Mobility ,Gait,Integument,Pain,Posture, ROM,Sensation,Soft Tissue Mobility,Strength,Transfers Goals 3 Impairment Imbalance Longterm Goal (LTG) Pt will perform WNLs on FGA to decrease fall risk. 01/09/25: FGA score is 22/30 LTG Duration 8 weeks 2 Impairment Impaired gait with crutches Utility Locate Technician Goal (LTG) Pt will gait train at least 1614 feet without AD in 6 minutes to improve community ambulation. 01/09/25: Pt gait trains 1416 feet in 6 minutes with high right pelvis and some decreased right knee motion LTG Duration 8 weeks 1 Impairment LEF score reflects 57.5% impairment Longterm Goal (LTG) Pt will present with LEF score reflecting no more than 25% impairment to improve function . 01/09/25: LEF score is much better and reflects 30% impairment LTG Duration 8 weeks Assessment Summary Assessment Will extend plan once a week until the middle of February to maximize PT potential for flexibility, range and functional range. Pt con't to do well with PT. Physical Therapy Plan Frequency and Duration Frequency of Treatment 1x/Week Duration of treatment (weeks) 5 Plan of Care Start Date 01/23/25 Plan of Care End Date 02/27/25 Therapeutic Interventions Therapeutic Interventions Balance Training,Canalithic Repositioning,Coordination Training,Gait Training,Home Exercise Program,Joint Mobilizations,Manual Therapy, Neuromuscular Re-education, Patient/Caregiver Education, Self-Care/Home Management,Soft Tissue Mobilization,Taping, Therapeutic Activities, Therapeutic Exercises Next Visit Focus/Plan Next Note Type Treatment Note Next Visit Plan Start upright bike seat height 7 Similar: manual work and other exercises in future treatment date, ongoing PNF in side lying
--- NOTE | 2025-01-23 10:37 | PT.OPPN ---
Current Diagnoses Unilateral primary osteoarthritis, right knee (01/23/25) Pain in right knee (01/23/25) Encounter for other orthopedic aftercare (01/23/25) Physical Therapy Progress Note PT-OP-A Visit Information Start: 12/03/24 16:42 Freq: Status: Active Protocol: Document 01/23/25 09:41 MB (Rec: 01/23/25 10:33 MB Desktop) Out-Patient Physical Therapy Visit Information Visit Information Visit Type Treatment Note Visit Note Medicare 03/30 before KX Visit Start Time 09:41 Visit Stop Time 10:21 Visit Number 7 Number of PHARMACEUTICAL OFFICER Visits 0 Evaluation Information Evaluation Date 12/05/24 PT-OP-B Current Condition Start: 12/03/24 16:42 Freq: Status: Active Protocol: Document 12/05/24 09:45 MB (Rec: 12/05/24 10:10 MB [id number]) Current Condition History of Current Condition Onset Date 12/03/24 Current Complaints Not yet fully independent History of Current Condition Pt underwent right TKA 12/03/24 . She has history of B THR and left TKAs. 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 Pt has compression stockings and does not like to wear compression hose. She arrives with christiano wrap donned well. Pt has a history of lumbar stenosis and herniation s/p L5 -S1 lami and decompression an L4-L5 revision. Pt has residual numbess and weakness left LE in PF and anterior story. She does not have good toe extension in left foot. Pt has B carpal tunnel surgery. PT-OP-C Subjective Start: 12/03/24 16:42 Freq: Status: Active Protocol: Document 01/23/25 09:41 MB (Rec: 01/23/25 10:33 MB Desktop) OP-PT Subjective Patient Comments Patient Comments Pt did not do band exercises over her trip to [place]. Pt is doing everything like she was doing pre-op. The distal quad is still bothering her. PT-OP-G Mobility & Gait Start: 12/03/24 16:42 Freq: Status: Active Protocol: Document 12/05/24 09:45 MB (Rec: 12/05/24 10:10 MB [id number]) OP Gait Assessment Comments Gait Comments Pt gait trains with B crutches or left crutch with antalgic step-through gait with decreased heel strike and functional knee flexion and extension with WB PT-OP-J Posture/Palpation/Skin Start: 12/03/24 16:42 Freq: Status: Active Protocol: Document 12/05/24 09:45 MB (Rec: 12/05/24 10:10 MB [id number]) Palpation Assessment Location RLE Palpation Details Mild edema RLE, worse in the right ankle PT-OP-K Range of Motion Start: 12/03/24 16:42 Freq: Status: Active Protocol: Document 12/05/24 09:45 MB (Rec: 12/05/24 10:10 MB [id number]) Knee Goniometric Range of Motion Knee Measured in Degrees Left Patient Position Supine Comments 0-123 deg Right Patient Position Supine Comments 9-104 deg PT-OP-M Strength Start: 12/03/24 16:42 Freq: Status: Active Protocol: Document 12/05/24 09:45 MB (Rec: 12/05/24 10:10 MB [id number]) Hip Strength Hip Manual Muscle Testing Left Flexion (L2) 4+ Good+ Abduction 5 Normal Right Comments RLE edema, all MMT in supine, right knee pain and so deferred hip MMT in supine given discomfort with attempted SLR Knee Strength Knee Manual Muscle Testing Left Flexion (S2) 5 Normal Extension (L3) 5 Normal Right Comments Deferred d/t pain, unable to SLR yet, makes a quad set Ankle/Foot Strength Ankle and Foot Manual Muscle Testing Left Dorsiflexion (L4) 5 Normal Right Dorsiflexion (L4) 5 Normal Toe Strength Toe Manual Muscle Testing Left Great Toe Extension 5 Normal Right Great Toe Extension 5 Normal PT-OP-T Assessment and Plan Start: 12/03/24 16:42 Freq: Status: Active Protocol: Document 01/23/25 09:41 MB (Rec: 01/23/25 10:33 MB Desktop) Physical Therapy Assessment Rehab Potential Rehabilitation Potential Excellent Evaluation Complexity Number of Personal Factors/Comorbidities 0 Number of Body Systems Impaired 1-2 Clinical Presentation at Evaluation Stable Impairments Impairments Activity Tolerance,Balance, Coordination,Edema,Functional Activities,Functional Mobility ,Gait,Integument,Pain,Posture, ROM,Sensation,Soft Tissue Mobility,Strength,Transfers Goals 3 Impairment Imbalance Freezer Tunnel Operator Goal (LTG) Pt will perform WNLs on FGA to decrease fall risk. 01/09/25: FGA score is 22/30 01/23/25: Not assessed today and will assess at d/c LTG Duration 8 weeks 2 Impairment Impaired gait with crutches Halfway Goal (LTG) Pt will gait train at least 1614 feet without AD in 6 minutes to improve community ambulation. 01/09/25: Pt gait trains 1416 feet in 6 minutes with high right pelvis and some decreased right knee motion LTG Duration 8 weeks 1 Impairment LEF score reflects 57.5% impairment Halfway Goal (LTG) Pt will present with LEF score reflecting no more than 25% impairment to improve function . 01/09/25: LEF score is much better and reflects 30% impairment 01/23/25: No assessed today and will assess at d/c LTG Duration 8 weeks Assessment Summary Assessment Will extend plan once a week until the middle of February to maximize PT potential for flexibility, range and functional range. Pt con't to do well with PT. Physical Therapy Plan Frequency and Duration Frequency of Treatment 1x/Week Duration of treatment (weeks) 5 Plan of Care Start Date 01/23/25 Plan of Care End Date 02/27/25 Therapeutic Interventions Therapeutic Interventions Balance Training,Canalithic Repositioning,Coordination Training,Gait Training,Home Exercise Program,Joint Mobilizations,Manual Therapy, Neuromuscular Re-education, Patient/Caregiver Education, Self-Care/Home Management,Soft Tissue Mobilization,Taping, Therapeutic Activities, Therapeutic Exercises Next Visit Focus/Plan Next Note Type Treatment Note Next Visit Plan Start upright bike seat height 7 Similar: manual work and other exercises in future treatment date, ongoing PNF in side lying
--- NOTE | 2025-01-23 10:37 | PT.OPPOC ---
Physical, Occupational & Speech Therapy At [facility] Current Diagnoses Unilateral primary osteoarthritis, right knee (01/23/25) Pain in right knee (01/23/25) Encounter for other orthopedic aftercare (01/23/25) Visit Care Team Role Provider Type Nelsy Lee DO Family Provider Physician Primary Care Provider Specialty: Medical Address: [address] [place] [address], [address], [place], [address] Email: [email or web address] Rayo Rojo MD Attending Provider Non-Staff Referring Provider Specialty: Orthopedics Orthopedic Surgery Address: [address] [place] [address], [id number] Email: Plan Of Care PT-OP-B Current Condition Start: 12/03/24 16:42 Freq: Status: Active Protocol: Document 12/05/24 09:45 MB (Rec: 12/05/24 10:10 MB [id number]) Current Condition History of Current Condition Onset Date 12/03/24 Current Complaints Not yet fully independent History of Current Condition Pt underwent right TKA 12/03/24 . She has history of B THR and left TKAs. 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 Pt has compression stockings and does not like to wear compression hose. She arrives with christiano wrap donned well. Pt has a history of lumbar stenosis and herniation s/p L5 -S1 lami and decompression an L4-L5 revision. Pt has residual numbess and weakness left LE in PF and anterior story. She does not have good toe extension in left foot. Pt has B carpal tunnel surgery. PT-OP-T Assessment and Plan Start: 12/03/24 16:42 Freq: Status: Active Protocol: Document 01/23/25 09:41 MB (Rec: 01/23/25 10:33 MB Desktop) Physical Therapy Assessment Rehab Potential Rehabilitation Potential Excellent Evaluation Complexity Number of Personal Factors/Comorbidities 0 Number of Body Systems Impaired 1-2 Clinical Presentation at Evaluation Stable Impairments Impairments Activity Tolerance,Balance, Coordination,Edema,Functional Activities,Functional Mobility ,Gait,Integument,Pain,Posture, ROM,Sensation,Soft Tissue Mobility,Strength,Transfers Goals 3 Impairment Imbalance Piece Dyeing Machine Tender Goal (LTG) Pt will perform WNLs on FGA to decrease fall risk. 01/09/25: FGA score is 22/30 01/23/25: Not assessed today and will assess at d/c LTG Duration 8 weeks 2 Impairment Impaired gait with crutches Piece Dyeing Machine Tender Goal (LTG) Pt will gait train at least 1614 feet without AD in 6 minutes to improve community ambulation. 01/09/25: Pt gait trains 1416 feet in 6 minutes with high right pelvis and some decreased right knee motion LTG Duration 8 weeks 1 Impairment LEF score reflects 57.5% impairment [facility] Goal (LTG) Pt will present with LEF score reflecting no more than 25% impairment to improve function . 01/09/25: LEF score is much better and reflects 30% impairment 01/23/25: No assessed today and will assess at d/c LTG Duration 8 weeks Assessment Summary Assessment Will extend plan once a week until the middle of February to maximize PT potential for flexibility, range and functional range. Pt con't to do well with PT. Physical Therapy Plan Frequency and Duration Frequency of Treatment 1x/Week Duration of treatment (weeks) 5 Plan of Care Start Date 01/23/25 Plan of Care End Date 02/27/25 Therapeutic Interventions Therapeutic Interventions Balance Training,Canalithic Repositioning,Coordination Training,Gait Training,Home Exercise Program,Joint Mobilizations,Manual Therapy, Neuromuscular Re-education, Patient/Caregiver Education, Self-Care/Home Management,Soft Tissue Mobilization,Taping, Therapeutic Activities, Therapeutic Exercises Next Visit Focus/Plan Next Note Type Treatment Note Next Visit Plan Start upright bike seat height 7 Similar: manual work and other exercises in future treatment date, ongoing PNF in side lying Plan of Care Dates Plan of Care Start Date 01/23/25 Plan of Care End Date 02/27/25 Electronically Signed by: Mariah Chaney PT 01/23/25 1037 If you are in agreement with this Plan of Care, please return a signed and dated copy. I have reviewed this Plan of Care and certify that the skilled therapy services above are required to meet the patient?s needs. Physician Signature Date Printed Name and Credentials Clinical Instructor Signature Printed Name and Credentials
--- NOTE | 2025-01-30 09:28 | PT.OTN ---
Current Diagnoses Unilateral primary osteoarthritis, right knee (01/30/25) Pain in right knee (01/30/25) Encounter for other orthopedic aftercare (01/30/25) Physical Therapy Treatment Note PT-OP-A Visit Information Start: 12/03/24 16:42 Freq: Status: Active Protocol: Document 01/30/25 08:13 MB (Rec: 01/30/25 09:28 MB Desktop) Out-Patient Physical Therapy Visit Information Visit Information Visit Type Treatment Note Visit Note Medicare 04/30 before KX Visit Start Time 08:13 Visit Stop Time 08:53 Visit Number 8 Number of BOAT MASTER Visits 0 Evaluation Information Evaluation Date 12/05/24 PT-OP-B Current Condition Start: 12/03/24 16:42 Freq: Status: Active Protocol: Document 12/05/24 09:45 MB (Rec: 12/05/24 10:10 MB [id number]) Current Condition History of Current Condition Onset Date 12/03/24 Current Complaints Not yet fully independent History of Current Condition Pt underwent right TKA 12/03/24 . She has history of B THR and left TKAs. 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 Pt has compression stockings and does not like to wear compression hose. She arrives with christiano wrap donned well. Pt has a history of lumbar stenosis and herniation s/p L5 -S1 lami and decompression an L4-L5 revision. Pt has residual numbess and weakness left LE in PF and anterior story. She does not have good toe extension in left foot. Pt has B carpal tunnel surgery. PT-OP-C Subjective Start: 12/03/24 16:42 Freq: Status: Active Protocol: Document 01/30/25 08:13 MB (Rec: 01/30/25 09:28 MB Desktop) OP-PT Subjective Patient Comments Patient Comments The only thing that is bothering her is near her quad attachment with eccentric movement. PT-OP-G Mobility & Gait Start: 12/03/24 16:42 Freq: Status: Active Protocol: Document 12/05/24 09:45 MB (Rec: 12/05/24 10:10 MB [id number]) OP Gait Assessment Comments Gait Comments Pt gait trains with B crutches or left crutch with antalgic step-through gait with decreased heel strike and functional knee flexion and extension with WB PT-OP-J Posture/Palpation/Skin Start: 12/03/24 16:42 Freq: Status: Active Protocol: Document 12/05/24 09:45 MB (Rec: 12/05/24 10:10 MB [id number]) Palpation Assessment Location RLE Palpation Details Mild edema RLE, worse in the right ankle PT-OP-K Range of Motion Start: 12/03/24 16:42 Freq: Status: Active Protocol: Document 12/05/24 09:45 MB (Rec: 12/05/24 10:10 MB [id number]) Knee Goniometric Range of Motion Knee Left Patient Position Supine Comments 0-123 deg Right Patient Position Supine Comments 9-104 deg PT-OP-M Strength Start: 12/03/24 16:42 Freq: Status: Active Protocol: Document 12/05/24 09:45 MB (Rec: 12/05/24 10:10 MB [id number]) Hip Strength Hip Manual Muscle Testing Left Flexion (L2) 4+ Good+ Abduction 5 Normal Right Comments RLE edema, all MMT in supine, right knee pain and so deferred hip MMT in supine given discomfort with attempted SLR Knee Strength Knee Manual Muscle Testing Left Flexion (S2) 5 Normal Extension (L3) 5 Normal Right Comments Deferred d/t pain, unable to SLR yet, makes a quad set Ankle/Foot Strength Ankle and Foot Manual Muscle Testing Left Dorsiflexion (L4) 5 Normal Right Dorsiflexion (L4) 5 Normal Toe Strength Toe Manual Muscle Testing Left Great Toe Extension 5 Normal Right Great Toe Extension 5 Normal PT-OP-Q Treatments Start: 12/03/24 16:42 Freq: Status: Active Protocol: Document 01/30/25 08:13 MB (Rec: 01/30/25 09:28 MB Desktop) Cardio Equipment Bicycle (Upright) Other Bike before treatment Therapeutic Exercises Supine Exercises Hip rotator stretch Comments Ed in exercise to improve fascial mobility of hips/hip rotators Manual Therapy Treatment Consent Patient gave verbal consent for manual Yes treatment Other Other Manual Treatments Pt supine: STM right TFL and rectus and TrP right rectus medial and lateral sides of muscle; pt in B side lying: B rib recoil for rib mobility, paraspinal and QL mobility, STM B hip rotators and glutes, TFL left, B PNF for pelvis and leg mobility and function, TrP right QL, TrP right QL, glute med, PFs PT-OP-T Assessment and Plan Start: 12/03/24 16:42 Freq: Status: Active Protocol: Document 01/30/25 08:13 MB (Rec: 01/30/25 09:28 MB Desktop) Physical Therapy Assessment Rehab Potential Rehabilitation Potential Excellent Evaluation Complexity Number of Personal Factors/Comorbidities 0 Number of Body Systems Impaired 1-2 Clinical Presentation at Evaluation Stable Impairments Impairments Activity Tolerance,Balance, Coordination,Edema,Functional Activities,Functional Mobility ,Gait,Integument,Pain,Posture, ROM,Sensation,Soft Tissue Mobility,Strength,Transfers Goals 3 Impairment Imbalance Assisted Goal (LTG) Pt will perform WNLs on FGA to decrease fall risk. 01/09/25: FGA score is 22/30 01/23/25: Not assessed today and will assess at d/c LTG Duration 8 weeks 2 Impairment Impaired gait with crutches Bag Presser Goal (LTG) Pt will gait train at least 1614 feet without AD in 6 minutes to improve community ambulation. 01/09/25: Pt gait trains 1416 feet in 6 minutes with high right pelvis and some decreased right knee motion LTG Duration 8 weeks 1 Impairment LEF score reflects 57.5% impairment Bag Presser Goal (LTG) Pt will present with LEF score reflecting no more than 25% impairment to improve function . 01/09/25: LEF score is much better and reflects 30% impairment 01/23/25: No assessed today and will assess at d/c LTG Duration 8 weeks Assessment Summary Assessment Pt con't with distal rectus/ patellar tendon irritation with eccentric stepping, though she con't to do well functionally. Physical Therapy Plan Frequency and Duration Frequency of Treatment 1x/Week Duration of treatment (weeks) 5 Plan of Care Start Date 01/23/25 Plan of Care End Date 02/27/25 Therapeutic Interventions Therapeutic Interventions Balance Training,Canalithic Repositioning,Coordination Training,Gait Training,Home Exercise Program,Joint Mobilizations,Manual Therapy, Neuromuscular Re-education, Patient/Caregiver Education, Self-Care/Home Management,Soft Tissue Mobilization,Taping, Therapeutic Activities, Therapeutic Exercises Next Visit Focus/Plan Next Note Type Treatment Note Next Visit Plan Start upright bike seat height 7 Similar: manual work and other exercises in future treatment date, ongoing PNF in side lying
--- NOTE | 2025-02-06 09:01 | PT.OTN ---
Current Diagnoses Unilateral primary osteoarthritis, right knee (02/06/25) Pain in right knee (02/06/25) Encounter for other orthopedic aftercare (02/06/25) Physical Therapy Treatment Note PT-OP-A Visit Information Start: 12/03/24 16:42 Freq: Status: Active Protocol: Document 02/06/25 08:15 MB (Rec: 02/06/25 09:01 MB Desktop) Out-Patient Physical Therapy Visit Information Visit Information Visit Type Treatment Note Visit Note Medicare 04/30 before KX Visit Start Time 08:15 Visit Stop Time 08:55 Visit Number 9 Number of POCKET GRINDER OPERATOR Visits 0 Evaluation Information Evaluation Date 12/05/24 PT-OP-B Current Condition Start: 12/03/24 16:42 Freq: Status: Active Protocol: Document 12/05/24 09:45 MB (Rec: 12/05/24 10:10 MB [id number]) Current Condition History of Current Condition Onset Date 12/03/24 Current Complaints Not yet fully independent History of Current Condition Pt underwent right TKA 12/03/24 . She has history of B THR and left TKAs. 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 Pt has compression stockings and does not like to wear compression hose. She arrives with christiano wrap donned well. Pt has a history of lumbar stenosis and herniation s/p L5 -S1 lami and decompression an L4-L5 revision. Pt has residual numbess and weakness left LE in PF and anterior story. She does not have good toe extension in left foot. Pt has B carpal tunnel surgery. PT-OP-C Subjective Start: 12/03/24 16:42 Freq: Status: Active Protocol: Document 02/06/25 08:15 MB (Rec: 02/06/25 09:01 MB Desktop) OP-PT Subjective Patient Comments Patient Comments Pt states that she still has the quad/patellar tendon issue . She rested on Tuesday and felt a lot better. PT-OP-G Mobility & Gait Start: 12/03/24 16:42 Freq: Status: Active Protocol: Document 12/05/24 09:45 MB (Rec: 12/05/24 10:10 MB [id number]) OP Gait Assessment Comments Gait Comments Pt gait trains with B crutches or left crutch with antalgic step-through gait with decreased heel strike and functional knee flexion and extension with WB PT-OP-J Posture/Palpation/Skin Start: 12/03/24 16:42 Freq: Status: Active Protocol: Document 12/05/24 09:45 MB (Rec: 12/05/24 10:10 MB [id number]) Palpation Assessment Location RLE Palpation Details Mild edema RLE, worse in the right ankle PT-OP-K Range of Motion Start: 12/03/24 16:42 Freq: Status: Active Protocol: Document 12/05/24 09:45 MB (Rec: 12/05/24 10:10 MB [id number]) Knee Goniometric Range of Motion Knee Left Patient Position Supine Comments 0-123 deg Right Patient Position Supine Comments 9-104 deg PT-OP-M Strength Start: 12/03/24 16:42 Freq: Status: Active Protocol: Document 12/05/24 09:45 MB (Rec: 12/05/24 10:10 MB [id number]) Hip Strength Hip Manual Muscle Testing Left Flexion (L2) 4+ Good+ Abduction 5 Normal Right Comments RLE edema, all MMT in supine, right knee pain and so deferred hip MMT in supine given discomfort with attempted SLR Knee Strength Knee Manual Muscle Testing Left Flexion (S2) 5 Normal Extension (L3) 5 Normal Right Comments Deferred d/t pain, unable to SLR yet, makes a quad set Ankle/Foot Strength Ankle and Foot Manual Muscle Testing Left Dorsiflexion (L4) 5 Normal Right Dorsiflexion (L4) 5 Normal Toe Strength Toe Manual Muscle Testing Left Great Toe Extension 5 Normal Right Great Toe Extension 5 Normal PT-OP-Q Treatments Start: 12/03/24 16:42 Freq: Status: Active Protocol: Document 02/06/25 08:15 MB (Rec: 02/06/25 09:01 MB Desktop) Cardio Equipment Bicycle (Upright) Other Bike before treatment Therapeutic Exercises Supine Exercises ROM assessment Supine Exercise Name PROM right hip IR almost to neutral and left lacks about 5 deg Comments Bridge looks good, weight shift to right Josemanuel stretch Supine Exercise Name HEP and handout today Side bilateral Comments [place] knee to chest and pt to perform active knee ext and flex Standing Exercises SLS Standing Exercise Name Review today Comments No Trendelenburg and increased ankle strategy, cues to level pelvis Manual Therapy Treatment Consent Patient gave verbal consent for manual Yes treatment Other Other Manual Treatments Pt supine: STM right rectus and vastus lateralis and TrP rectus, B side lying STM hip rotators, TFLs, QL and TrP B QLs PT-OP-T Assessment and Plan Start: 12/03/24 16:42 Freq: Status: Active Protocol: Document 02/06/25 08:15 MB (Rec: 02/06/25 09:01 MB Desktop) Physical Therapy Assessment Rehab Potential Rehabilitation Potential Excellent Evaluation Complexity Number of Personal Factors/Comorbidities 0 Number of Body Systems Impaired 1-2 Clinical Presentation at Evaluation Stable Impairments Impairments Activity Tolerance,Balance, Coordination,Edema,Functional Activities,Functional Mobility ,Gait,Integument,Pain,Posture, ROM,Sensation,Soft Tissue Mobility,Strength,Transfers Goals 3 Impairment Imbalance Custodial Goal (LTG) Pt will perform WNLs on FGA to decrease fall risk. 01/09/25: FGA score is 22/30 01/23/25: Not assessed today and will assess at d/c LTG Duration 8 weeks 2 Impairment Impaired gait with crutches Color Grinder Goal (LTG) Pt will gait train at least 1614 feet without AD in 6 minutes to improve community ambulation. 01/09/25: Pt gait trains 1416 feet in 6 minutes with high right pelvis and some decreased right knee motion LTG Duration 8 weeks 1 Impairment LEF score reflects 57.5% impairment Color Grinder Goal (LTG) Pt will present with LEF score reflecting no more than 25% impairment to improve function . 01/09/25: LEF score is much better and reflects 30% impairment 01/23/25: No assessed today and will assess at d/c LTG Duration 8 weeks Assessment Summary Assessment Con't to progress exercises and ongoing manual work and pt has a few more treatments. Physical Therapy Plan Frequency and Duration Frequency of Treatment 1x/Week Duration of treatment (weeks) 5 Plan of Care Start Date 01/23/25 Plan of Care End Date 02/27/25 Therapeutic Interventions Therapeutic Interventions Balance Training,Canalithic Repositioning,Coordination Training,Gait Training,Home Exercise Program,Joint Mobilizations,Manual Therapy, Neuromuscular Re-education, Patient/Caregiver Education, Self-Care/Home Management,Soft Tissue Mobilization,Taping, Therapeutic Activities, Therapeutic Exercises Next Visit Focus/Plan Next Note Type Treatment Note Next Visit Plan Same: Start upright bike seat height 7 Similar: manual work and other exercises in future treatment date, ongoing PNF in side lying
--- NOTE | 2025-02-13 14:29 | PT.OTN ---
Current Diagnoses Unilateral primary osteoarthritis, right knee (02/13/25) Pain in right knee (02/13/25) Encounter for other orthopedic aftercare (02/13/25) Physical Therapy Treatment Note PT-OP-A Visit Information Start: 12/03/24 16:42 Freq: Status: Active Protocol: Document 02/13/25 13:47 MB (Rec: 02/13/25 14:29 MB Desktop) Out-Patient Physical Therapy Visit Information Visit Information Visit Type Treatment Note Visit Note Medicare 06/30 before KX Visit Start Time 13:47 Visit Stop Time 14:27 Visit Number 10 Number of FIXED INCOME ANALYST Visits 0 Evaluation Information Evaluation Date 12/05/24 PT-OP-B Current Condition Start: 12/03/24 16:42 Freq: Status: Active Protocol: Document 12/05/24 09:45 MB (Rec: 12/05/24 10:10 MB [id number]) Current Condition History of Current Condition Onset Date 12/03/24 Current Complaints Not yet fully independent History of Current Pt underwent right TKA 12/03/24. She has history of B Condition THR and left TKAs. 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 Pt has compression stockings and does not like to wear compression hose. She arrives with christiano wrap donned well . Pt has a history of lumbar stenosis and herniation s/p L5-S1 lami and decompression an L4-L5 revision. Pt has residual numbess and weakness left LE in PF and anterior story. She does not have good toe extension in left foot. Pt has B carpal tunnel surgery. PT-OP-C Subjective Start: 12/03/24 16:42 Freq: Status: Active Protocol: Document 02/13/25 13:47 MB (Rec: 02/13/25 14:29 MB Desktop) OP-PT Subjective Patient Comments Patient Comments Pt states that it is going slow but she is getting better. She stopped the SLR that that helped. Going down the steps is challenging. PT-OP-G Mobility & Gait Start: 12/03/24 16:42 Freq: Status: Active Protocol: Document 12/05/24 09:45 MB (Rec: 12/05/24 10:10 MB [id number]) OP Gait Assessment Comments Gait Comments Pt gait trains with B crutches or left crutch with antalgic step-through gait with decreased heel strike and functional knee flexion and extension with WB PT-OP-J Posture/Palpation/Skin Start: 12/03/24 16:42 Freq: Status: Active Protocol: Document 12/05/24 09:45 MB (Rec: 12/05/24 10:10 MB [id number]) Palpation Assessment Location RLE Palpation Details Mild edema RLE, worse in the right ankle PT-OP-K Range of Motion Start: 12/03/24 16:42 Freq: Status: Active Protocol: Document 12/05/24 09:45 MB (Rec: 12/05/24 10:10 MB [id number]) Knee Goniometric Range of Motion Knee Left Patient Position Supine Comments 0-123 deg Right Patient Position Supine Comments 9-104 deg PT-OP-M Strength Start: 12/03/24 16:42 Freq: Status: Active Protocol: Document 12/05/24 09:45 MB (Rec: 12/05/24 10:10 MB [id number]) Hip Strength Hip Manual Muscle Testing Left Flexion (L2) 4+ Good+ Abduction 5 Normal Right Comments RLE edema, all MMT in supine, right knee pain and so deferred hip MMT in supine given discomfort with attempted SLR Knee Strength Knee Manual Muscle Testing Left Flexion (S2) 5 Normal Extension (L3) 5 Normal Right Comments Deferred d/t pain, unable to SLR yet, makes a quad set Ankle/Foot Strength Ankle and Foot Manual Muscle Testing Left Dorsiflexion (L4) 5 Normal Right Dorsiflexion (L4) 5 Normal Toe Strength Toe Manual Muscle Testing Left Great Toe Extension 5 Normal Right Great Toe Extension 5 Normal PT-OP-Q Treatments Start: 12/03/24 16:42 Freq: Status: Active Protocol: Document 02/13/25 13:47 MB (Rec: 02/13/25 14:29 MB Desktop) Manual Therapy Treatment Consent Patient gave verbal Yes consent for manual treatment Other Other Manual PT supine: STM and TrP right TFL; B side lying: B rib Treatments recoil muscle energy technique and PNF for pelvis and LE to improve fascial mobility and strength, B STM QL and glutes, MWM right plantar flexors and hip rotators with pt in side lying PT-OP-T Assessment and Plan Start: 12/03/24 16:42 Freq: Status: Active Protocol: Document 02/13/25 13:47 MB (Rec: 02/13/25 14:29 MB Desktop) Physical Therapy Assessment Rehab Potential Rehabilitation Excellent Potential Evaluation Complexity Number of Personal 0 Factors/ Comorbidities Number of Body 1-2 Systems Impaired Clinical Stable Presentation at Evaluation Impairments Impairments Activity Tolerance,Balance,Coordination,Edema, Functional Activities,Functional Mobility,Gait, Integument,Pain,Posture,ROM,Sensation,Soft Tissue Mobility,Strength,Transfers Goals 3 Impairment Imbalance Pastry Decorator Goal (LTG) Pt will perform WNLs on FGA to decrease fall risk. 01/09/25: FGA score is 22/30 01/23/25: Not assessed today and will assess at d/c LTG Duration 8 weeks 2 Impairment Impaired gait with crutches Pastry Decorator Goal (LTG) Pt will gait train at least 1614 feet without AD in 6 minutes to improve community ambulation. 01/09/25: Pt gait trains 1416 feet in 6 minutes with high right pelvis and some decreased right knee motion LTG Duration 8 weeks 1 Impairment LEF score reflects 57.5% impairment Pastry Decorator Goal (LTG) Pt will present with LEF score reflecting no more than 25% impairment to improve function. 01/09/25: LEF score is much better and reflects 30% impairment 01/23/25: No assessed today and will assess at d/c LTG Duration 8 weeks Assessment Summary Assessment Pt con't to improve and she has two more appointments and will con't per plan. Physical Therapy Plan Frequency and Duration Frequency of 1x/Week Treatment Duration of 5 treatment (weeks) Plan of Care Start 01/23/25 Date Plan of Care End 02/27/25 Date Therapeutic Interventions Therapeutic Balance Training,Canalithic Repositioning,Coordination Interventions Training,Gait Training,Home Exercise Program,Joint Mobilizations,Manual Therapy,Neuromuscular Re-education ,Patient/Caregiver Education,Self-Care/Home Management, Soft Tissue Mobilization,Taping,Therapeutic Activities, Therapeutic Exercises Next Visit Focus/Plan Next Note Type Treatment Note Next Visit Plan Same: Start upright bike seat height 7 Similar: manual work and other exercises in future treatment date, ongoing PNF in side lying
--- NOTE | 2025-02-20 11:29 | PT.OTN ---
Current Diagnoses Unilateral primary osteoarthritis, right knee (02/20/25) Pain in right knee (02/20/25) Encounter for other orthopedic aftercare (02/20/25) Physical Therapy Treatment Note PT-OP-A Visit Information Start: 12/03/24 16:42 Freq: Status: Active Protocol: Document 02/20/25 10:46 MB (Rec: 02/20/25 11:29 MB Desktop) Out-Patient Physical Therapy Visit Information Visit Information Visit Type Treatment Note Visit Note Medicare 07/31 before KX She will d/c next treatment Visit Start Time 10:46 Visit Stop Time 11: Visit Number 11 Number of SOFTWARE QUALITY ENGINEER Visits 0 Evaluation Information Evaluation Date 12/05/24 PT-OP-B Current Condition Start: 12/03/24 16:42 Freq: Status: Active Protocol: Document 12/05/24 09:45 MB (Rec: 12/05/24 10:10 MB [id number]) Current Condition History of Current Condition Onset Date 12/03/24 Current Complaints Not yet fully independent History of Current Pt underwent right TKA 12/03/24. She has history of B Condition THR and left TKAs. 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 Pt has compression stockings and does not like to wear compression hose. She arrives with christiano wrap donned well . Pt has a history of lumbar stenosis and herniation s/p L5-S1 lami and decompression an L4-L5 revision. Pt has residual numbess and weakness left LE in PF and anterior story. She does not have good toe extension in left foot. Pt has B carpal tunnel surgery. PT-OP-C Subjective Start: 12/03/24 16:42 Freq: Status: Active Protocol: Document 02/20/25 10:46 MB (Rec: 02/20/25 11:29 MB Desktop) OP-PT Subjective Patient Comments Patient Comments Yesterday, she wouldn't have even known that anything was done to her knee. Her right TKA at 12/03/24. PT-OP-G Mobility & Gait Start: 12/03/24 16:42 Freq: Status: Active Protocol: Document 12/05/24 09:45 MB (Rec: 12/05/24 10:10 MB [id number]) OP Gait Assessment Comments Gait Comments Pt gait trains with B crutches or left crutch with antalgic step-through gait with decreased heel strike and functional knee flexion and extension with WB PT-OP-J Posture/Palpation/Skin Start: 12/03/24 16:42 Freq: Status: Active Protocol: Document 12/05/24 09:45 MB (Rec: 12/05/24 10:10 MB [id number]) Palpation Assessment Location RLE Palpation Details Mild edema RLE, worse in the right ankle PT-OP-K Range of Motion Start: 12/03/24 16:42 Freq: Status: Active Protocol: Document 12/05/24 09:45 MB (Rec: 12/05/24 10:10 MB [id number]) Knee Goniometric Range of Motion Knee Left Patient Position Supine Comments 0-123 deg Right Patient Position Supine Comments 9-104 deg PT-OP-M Strength Start: 12/03/24 16:42 Freq: Status: Active Protocol: Document 12/05/24 09:45 MB (Rec: 12/05/24 10:10 MB [id number]) Hip Strength Hip Manual Muscle Testing Left Flexion (L2) 4+ Good+ Abduction 5 Normal Right Comments RLE edema, all MMT in supine, right knee pain and so deferred hip MMT in supine given discomfort with attempted SLR Knee Strength Knee Manual Muscle Testing Left Flexion (S2) 5 Normal Extension (L3) 5 Normal Right Comments Deferred d/t pain, unable to SLR yet, makes a quad set Ankle/Foot Strength Ankle and Foot Manual Muscle Testing Left Dorsiflexion (L4) 5 Normal Right Dorsiflexion (L4) 5 Normal Toe Strength Toe Manual Muscle Testing Left Great Toe Extension 5 Normal Right Great Toe Extension 5 Normal PT-OP-Q Treatments Start: 12/03/24 16:42 Freq: Status: Active Protocol: Document 02/20/25 10:46 MB (Rec: 02/20/25 11:29 MB Desktop) Manual Therapy Treatment Consent Patient gave verbal Yes consent for manual treatment Other Other Manual Pt supine: STM and TrP right TFL and distal rectus Treatments femoris; B side lying: B rib recoil muscle energy technique and PNF for pelvis and LE to improve fascial mobility and strength, B STM QL and glutes, MWM right plantar flexors and hip rotators with pt in side lying PT-OP-T Assessment and Plan Start: 12/03/24 16:42 Freq: Status: Active Protocol: Document 02/20/25 10:46 MB (Rec: 02/20/25 11:29 MB Desktop) Physical Therapy Assessment Rehab Potential Rehabilitation Excellent Potential Evaluation Complexity Number of Personal 0 Factors/ Comorbidities Number of Body 1-2 Systems Impaired Clinical Stable Presentation at Evaluation Impairments Impairments Activity Tolerance,Balance,Coordination,Edema, Functional Activities,Functional Mobility,Gait, Integument,Pain,Posture,ROM,Sensation,Soft Tissue Mobility,Strength,Transfers Goals 3 Impairment Imbalance Residential Goal (LTG) Pt will perform WNLs on FGA to decrease fall risk. 01/09/25: FGA score is 22/30 01/23/25: Not assessed today and will assess at d/c LTG Duration 8 weeks 2 Impairment Impaired gait with crutches Kitchen Assistant Goal (LTG) Pt will gait train at least 1614 feet without AD in 6 minutes to improve community ambulation. 01/09/25: Pt gait trains 1416 feet in 6 minutes with high right pelvis and some decreased right knee motion LTG Duration 8 weeks 1 Impairment LEF score reflects 57.5% impairment Residential Goal (LTG) Pt will present with LEF score reflecting no more than 25% impairment to improve function. 01/09/25: LEF score is much better and reflects 30% impairment 01/23/25: No assessed today and will assess at d/c LTG Duration 8 weeks Assessment Summary Assessment Doing great, d/c after next treatment. Physical Therapy Plan Frequency and Duration Frequency of 1x/Week Treatment Duration of 5 treatment (weeks) Plan of Care Start 01/23/25 Date Plan of Care End 02/27/25 Date Therapeutic Interventions Therapeutic Balance Training,Canalithic Repositioning,Coordination Interventions Training,Gait Training,Home Exercise Program,Joint Mobilizations,Manual Therapy,Neuromuscular Re-education ,Patient/Caregiver Education,Self-Care/Home Management, Soft Tissue Mobilization,Taping,Therapeutic Activities, Therapeutic Exercises Next Visit Focus/Plan Next Note Type Treatment Note Next Visit Plan Prepare for d/c
--- NOTE | 2025-02-27 09:42 | PT.OTN ---
Current Diagnoses Unilateral primary osteoarthritis, right knee (02/27/25) Pain in right knee (02/27/25) Encounter for other orthopedic aftercare (02/27/25) Physical Therapy Treatment Note PT-OP-A Visit Information Start: 12/03/24 16:42 Freq: Status: Active Protocol: Document 02/27/25 09:00 MB (Rec: 02/27/25 09:42 MB Desktop) Out-Patient Physical Therapy Visit Information Visit Information Visit Type Treatment Note Visit Note Medicare 08/30 before KX Visit Start Time 09:00 Visit Stop Time 09:40 Visit Number 12 Number of INSTRUCTOR KNITTING Visits 0 Evaluation Information Evaluation Date 12/05/24 PT-OP-B Current Condition Start: 12/03/24 16:42 Freq: Status: Active Protocol: Document 12/05/24 09:45 MB (Rec: 12/05/24 10:10 MB [id number]) Current Condition History of Current Condition Onset Date 12/03/24 Current Complaints Not yet fully independent History of Current Pt underwent right TKA 12/03/24. She has history of B Condition THR and left TKAs. 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 Pt has compression stockings and does not like to wear compression hose. She arrives with christiano wrap donned well . Pt has a history of lumbar stenosis and herniation s/p L5-S1 lami and decompression an L4-L5 revision. Pt has residual numbess and weakness left LE in PF and anterior story. She does not have good toe extension in left foot. Pt has B carpal tunnel surgery. PT-OP-C Subjective Start: 12/03/24 16:42 Freq: Status: Active Protocol: Document 02/27/25 09:00 MB (Rec: 02/27/25 09:42 MB Desktop) OP-PT Subjective Patient Comments Patient Comments Pt states that she went to [employer] and rode a bike for 25 miles over the weekend. She is doing a lot better. She also did beach walking on uneven surfaces and in sticky earth. PT-OP-G Mobility & Gait Start: 12/03/24 16:42 Freq: Status: Active Protocol: Document 12/05/24 09:45 MB (Rec: 12/05/24 10:10 MB [id number]) OP Gait Assessment Comments Gait Comments Pt gait trains with B crutches or left crutch with antalgic step-through gait with decreased heel strike and functional knee flexion and extension with WB PT-OP-J Posture/Palpation/Skin Start: 12/03/24 16:42 Freq: Status: Active Protocol: Document 12/05/24 09:45 MB (Rec: 12/05/24 10:10 MB [id number]) Palpation Assessment Location RLE Palpation Details Mild edema RLE, worse in the right ankle PT-OP-K Range of Motion Start: 12/03/24 16:42 Freq: Status: Active Protocol: Document 12/05/24 09:45 MB (Rec: 12/05/24 10:10 MB [id number]) Knee Goniometric Range of Motion Knee Left Patient Position Supine Comments 0-123 deg Right Patient Position Supine Comments 9-104 deg PT-OP-M Strength Start: 12/03/24 16:42 Freq: Status: Active Protocol: Document 12/05/24 09:45 MB (Rec: 12/05/24 10:10 MB [id number]) Hip Strength Hip Manual Muscle Testing Left Flexion (L2) 4+ Good+ Abduction 5 Normal Right Comments RLE edema, all MMT in supine, right knee pain and so deferred hip MMT in supine given discomfort with attempted SLR Knee Strength Knee Manual Muscle Testing Left Flexion (S2) 5 Normal Extension (L3) 5 Normal Right Comments Deferred d/t pain, unable to SLR yet, makes a quad set Ankle/Foot Strength Ankle and Foot Manual Muscle Testing Left Dorsiflexion (L4) 5 Normal Right Dorsiflexion (L4) 5 Normal Toe Strength Toe Manual Muscle Testing Left Great Toe Extension 5 Normal Right Great Toe Extension 5 Normal PT-OP-Q Treatments Start: 12/03/24 16:42 Freq: Status: Active Protocol: Document 02/27/25 09:00 MB (Rec: 02/27/25 09:42 MB Desktop) Gait Training Gait Activity 6MWT Comments Surpassed goal and see goals today, ongoing minor limp RLE, gait trains at least 8' during treatment Manual Therapy Treatment Consent Patient gave verbal Yes consent for manual treatment Other Other Manual Pt B side lying: STM right TFL, vastus lateralis, Treatments rectus, fibularis longus, DFs and plantar fascia, TrP right fibularis longus, TFL. Neuro Re-Education Treatment Balance Activities FGA Comments , met goal today, see goal comments PT-OP-T Assessment and Plan Start: 12/03/24 16:42 Freq: Status: Active Protocol: Document 02/27/25 09:00 MB (Rec: 02/27/25 09:42 MB Desktop) Physical Therapy Assessment Rehab Potential Rehabilitation Excellent Potential Evaluation Complexity Number of Personal 0 Factors/ Comorbidities Number of Body 1-2 Systems Impaired Clinical Stable Presentation at Evaluation Impairments Impairments Activity Tolerance,Balance,Coordination,Edema, Functional Activities,Functional Mobility,Gait, Integument,Pain,Posture,ROM,Sensation,Soft Tissue Mobility,Strength,Transfers Goals 3 Impairment Imbalance Care Home Goal (LTG) Pt will perform WNLs on FGA to decrease fall risk. 01/09/25: FGA score is 22/30 01/23/25: Not assessed today and will assess at d/c 02/27/25: FGA score is 30/30 with only change being a minor antalgic pattern after right TKR LTG Duration Met goal 2 Impairment Impaired gait with crutches Rotary Derrick Operator Goal (LTG) Pt will gait train at least 1614 feet without AD in 6 minutes to improve community ambulation. 01/09/25: Pt gait trains 1416 feet in 6 minutes with high right pelvis and some decreased right knee motion 02/27/25: Pt gait trains 1629 feet in 6 minutes, surpassing goal LTG Duration Surpasses goal 1 Impairment LEF score reflects 57.5% impairment Care Home Goal (LTG) Pt will present with LEF score reflecting no more than 25% impairment to improve function. 01/09/25: LEF score is much better and reflects 30% impairment 01/23/25: No assessed today and will assess at d/c 02/27/25: LEF score reflects 27.5% impairment LTG Duration Progressed towards goal Assessment Summary Assessment Pt has progressed towards LEF goal, met FGA goal and surpassed 6MWT goal. She is ready to d/c PT. Physical Therapy Plan Frequency and Duration Frequency of 1x/Week Treatment Duration of 5 treatment (weeks) Plan of Care Start 01/23/25 Date Plan of Care End 02/27/25 Date Therapeutic Interventions Therapeutic Balance Training,Canalithic Repositioning,Coordination Interventions Training,Gait Training,Home Exercise Program,Joint Mobilizations,Manual Therapy,Neuromuscular Re-education ,Patient/Caregiver Education,Self-Care/Home Management, Soft Tissue Mobilization,Taping,Therapeutic Activities, Therapeutic Exercises Next Visit Focus/Plan Next Note Type Treatment Note
== END 2025-03-04 10:18 | disposition home or self-care (01) ==
LOC: PHYS 09:00
PROVIDERS: Family Provider Family Medicine; PCP Family Medicine; Referring Provider Orthopaedic Surgery; Visit Provider Orthopaedic Surgery
DX: M25.561 Pain in right knee (principal); M17.11 Unilateral primary osteoarthritis, right knee; Z47.89 Encounter for other orthopedic aftercare
CPT/HCPCS: 97110; 97112; 97116; 97140; 97161; 97535

== ENCOUNTER → 2025-04-15 09:57 | Outpatient (CLI) | payer MEDICARE, OTHER, SELFPAY ==
--- NOTE | 2025-04-15 09:59 | DI.MG.S_ITS ---
MM screening mammo BI: 04/15/2025. BI-RADS: 1 CLINICAL: 69-year old female for bilateral screening mammogram. Tyrer-Cuzick lifetime risk of 14.8%. No personal or first-degree family history of breast cancer. Current reported family history of breast cancer: paternal aunt and daughter of uncle. PRIOR EXAMS 03/26/2024, 03/16/2023, 03/09/2022, 02/10/2021. MAMMOGRAPHY TECHNIQUE: 2D and 3D (tomosynthesis) digital mammographic views obtained, with additional images as needed for full coverage. Current study was also evaluated with a Computer Aided Detection (CAD) system. DENSITY C. The breasts are heterogeneously dense, which may obscure small masses. MAMMOGRAPHY FINDINGS Bilateral: No suspicious mass, asymmetry, microcalcification, or other abnormality seen. IMPRESSION: * No evidence of malignancy. RECOMMENDATIONS Bilateral * Annual screening mammography. OVERALL ASSESSMENT CATEGORY BI-RADS-1: Negative. The [employer] recommends annual screening mammography beginning at age 40 for women with average risk of breast cancer. ELECTRONICALLY SIGNED: Suzanna Yang M.D. on 04/15/2025 at 01:23:51 PM PT Interpreting Station ID: [id number]
== END ==
LOC: MAMMO 09:59
PROVIDERS: Family Provider Family Medicine; PCP Family Medicine; Referring Provider Family Medicine; Visit Provider Family Medicine
DX: Z12.31 Encounter for screening mammogram for malignant neoplasm of breast (principal); Z80.3 Family history of malignant neoplasm of breast; R92.333 Mammographic heterogeneous density, bilateral breasts
CPT/HCPCS: 77063; 77067

== ENCOUNTER → 2025-05-22 07:37 | Outpatient (CLI) | payer MEDICARE, OTHER, SELFPAY ==
--- NOTE | 2025-05-22 07:39 | DI.CT.S_ITS ---
PROCEDURE: CT CHEST WO CON INDICATIONS: Follow up on pulmonary nodule TECHNIQUE: Noncontrast 5 mm thick sections acquired from the pulmonary apices to the posterior costophrenic angles. 1 mm lung window, 5 mm thick coronal and sagittal and 7 mm axial MIP reformats were then acquired. For radiation dose reduction, the following was used: automated exposure control, adjustment of mA and/or kV according to patient size. COMPARISON: [facility], CT, CT CHEST WO CON, 06/27/2024, 10:55. FINDINGS: Image quality: Diagnostic. Lungs and Pleura: There is a perivascular nodular area with minimal spiculation at a bifurcation point of vessels in the medial right upper lobe measuring about 6 mm in diameter and stable in morphology compared to prior exams. Of pleural-based, noncalcified nodule anteromedial corner right middle lobe at the lung base measures 7 mm, also stable. There are numerous calcified nodules, smaller in size throughout both lungs. Findings are on a background of mild centrilobular emphysematous change. Central airways are patent. There are several areas of peripheral airway mucous plugging in upper and lower lungs, and minimal reticulonodular pattern incidentally in the anterior right middle lobe, likely acute minor pneumonitis. No other significant growing or new pulmonary nodules. Trace right middle lobe atelectasis. No pleural effusions or pleural calcifications. Lower Neck: No enlarged lymph nodes. Thyroid: Normal CT appearance. Axillae: No enlarged lymph nodes. Chest Wall: No suspicious chest wall lesions. Bones: No suspicious bone lesion. Mild degenerative changes in the spine. Thoracic Vessels: The aorta and pulmonary arteries demonstrate normal size. Mediastinum and Laura: No enlarged lymph nodes. Heart: Heart size is normal. No pericardial effusion. Esophagus: No wall thickening. No hiatal hernia. Upper Abdomen: Visualized upper abdomen solid organs and bowel loops appear normal. IMPRESSION: Stable noncalcified right upper and right middle lobe nodular areas, probably benign given nearly two years of stability. There is a background of emphysema, chronic bronchitis, and scattered calcified granulomas. Dictated by: Phylicia Peralta M.D. on 05/22/2025 at 13:04 Approved by: Phylicia Peralta M.D. on 05/22/2025 at 13:13
[2025-05-22 09:12] LABS: Alanine Aminotransferase 20 IU/L (<35); Albumin 4.7 g/dL (3.5-5.0); Albumin Globulin Ratio 1.6 (1.0-2.8); Alkaline Phosphatase 74 U/L (38-126); Blood Urea Nitrogen 19 mg/dL (7-17); Calcium 9.4 mg/dL (8.4-10.2); Carbon Dioxide 24 mmol/L (22-32); Chloride 103 mmol/L (98-107); Cholesterol 207 mg/dL (140-199); Estimated Glomerular Filt Rate > 60 mL/min (>60); Globulin 3.0 g/dL (1.7-4.1); Glucose 86 mg/dL (70-99); HDL Cholesterol 70 mg/dL (40-60); HEMOLYSIS < 15 (0-50); Potassium 4.1 mmol/L (3.4-5.1); Sodium 137 mmol/L (137-145); Total Protein 7.7 g/dL (6.3-8.2); Triglycerides 82 mg/dL (35-150)
== END ==
LOC: CT 07:38
PROVIDERS: Family Provider Family Medicine; PCP Family Medicine; Referring Provider Family Medicine; Visit Provider Family Medicine
DX: Z00.00 Encounter for general adult medical examination without abnormal findings (principal); J43.9 Emphysema, unspecified; J98.4 Other disorders of lung; J42 Unspecified chronic bronchitis; R91.1 Solitary pulmonary nodule; E78.00 Pure hypercholesterolemia, unspecified; K21.9 Gastro-esophageal reflux disease without esophagitis; Z79.890 Hormone replacement therapy
CPT/HCPCS: 36415; 71250; 80053; 80061